=== PATIENT | female | born 1940 | race Caucasian/White ===

== ENCOUNTER → 2018-02-06 10:47 | Outpatient (CLI) | payer MEDICARE, SELFPAY ==
[2018-02-06 13:12] LABS: AST(SGOT) 14 U/L (15-37); Alanine Aminotransfer ALT/SGPT 21 U/L (13-56); Anion Gap 9 (5-15); BUN 17 mg/dL (7-18); BUN/Creat Ratio 15.6 RATIO (10-20); Calcium,Total 9.4 mg/dL (8.5-10.1); Chloride 104 mmol/L (98-107); Cholesterol 131 mg/dL (200); Creatinine, Serum 1.09 mg/dL (0.55-1.02); EST Glomerular Filtration Rate 52 mL/min (>60); Est Glom Filt Rate - Afr Amer 62 mL/min (>60); Glucose 83 mg/dL (74-106); High Density Lipoprotein 52 mg/dL; Potassium 4.1 mmol/L (3.5-5.1); Sodium Level 138 mmol/L (136-145); Triglycerides 158 mg/dL; Very Low Density Lipoprotein 32 mg/dL (5-40)
== END ==
PROVIDERS: Family Provider Family Medicine; PCP Family Medicine; Visit Provider Family Medicine
DX: E78.5 Hyperlipidemia, unspecified (principal); I10 Essential (primary) hypertension
CPT/HCPCS: 36415; 80048; 80061; 84450; 84460

== ENCOUNTER 2018-07-03 05:25 | Day surgery (SDC) | payer MEDICARE, SELFPAY ==
[2018-07-03] VITALS (13 sets, daily range): BP systolic 90–197; BP diastolic 58–131; PULSE 63–86; RESP 12–16; TEMP 36.1–36.6; O2SAT 94–100
--- NOTE | 2018-07-03 06:09 | PCM.HP.STD ---
Problem List (1) Screening for intestinal cancer Status: Acute History of Present Illness Date of Admission: 07/03/18 The patient is a 78 year old F who presents for a screening colonoscopy today. It is been over 30 years since she had had a previous procedure. She is symptom-free. She denies bright red blood per rectum or melena. No abdominal pain. It is of note that October 07, 2014 I performed an exploratory operation because of small bowel obstruction. She had foreign body food fecal material obstructing her. She has done well since that time. There is no family history of colon cancer. Past Medical History Medical History: Medical History (Last Updated 05/26/18 @ 14:19 by Gricelda Morejon) Screening for intestinal cancer (Acute) Z12.10 History of hysterectomy Z90.710 History of intestinal obstruction Onset Date: ~2014 Z87.19 Allergies simvastatin [From Zocor] Adverse Reaction (Mild, Verified 05/26/18 14:20) body aches Home Medications: Ambulatory Orders Medication Instructions Recorded Atorvastatin Calcium [Lipitor] 40 mg PO QHS 10/09/14 Carvedilol 6.25 mg PO BID 10/09/14 losartan 50 mg tablet 50 mg PO DAILY 05/26/18 Surgical History: Surgical History (Last Updated 05/26/18 @ 14:19 by Gricelda Morejon) History of colonoscopy Z98.890 History of resection of small bowel Z90.49 Surgical History: - - Exploratory laparotomy for small bowel obstruction 2014 Smoking Status: Never smoker Review of Systems Constitutional: Denies: Anorexia HEENT: Denies: Difficulty Swallowing Cardiovascular: Denies: Chest Pain Respiratory: Denies: Cough Gastrointestinal: Denies: Abdominal Pain Psychiatric: Denies: Anxiety Endocrine: Denies: Change in Body Habitus VTE Information - Inpt Only VTE Present on Admission: No - Physical Exam General: Alert, Oriented x3, Cooperative, No apparent distress HEENT: Atraumatic Oral: Moist Mucosa Neck: Supple Lungs: Clear to auscultation Cardiovascular: Regular rate, Regular Rhythm Abdomen: Bowel Sounds Present, Soft, Non Tender Extremities: No clubbing Skin: No rashes Musculoskeletal: No Tenderness to Palpation of Joints or Extremities Neurological: Cranial nerves II-XII grossly intact Psych/Mental Status: Normal Affect Vital Signs Temp Pulse Resp BP Pulse Ox 97.9 F 86 16 148/86 H 96 07/03/18 05:47 07/03/18 05:47 07/03/18 05:47 07/03/18 05:47 07/03/18 05:47 Oxygen Delivery Method Room Air Assessment/Plan All Active Problems (Last Updated 05/26/18 @ 14:19 by Gricelda Morejon) Screening for intestinal cancer (Acute) I am recommending a screening colonoscopy. The patient is aware of the technique, benefits, risks and alternatives. She has had an opportunity to ask and have questions answered. We will proceed at her discretion. Adeflo Mo M.D., F.A.C.S.
--- NOTE | 2018-07-03 06:57 | OP.ENDO_ITS ---
Patient Name: Mya Mendes Procedure Date: 07/03/2018 6:14 AM Date of : 1940 Age: 78 Procedure: Colonoscopy Indications: Screening for colorectal malignant neoplasm Providers: Adelfo Mo MD Referring MD: Adelfo Mo MD Medicines: Midazolam 3 mg IV, Meperidine 75 mg IV Patient Profile: Last Colonoscopy: more than 10 years ago. Complications: No immediate complications. Procedure: Pre-Anesthesia Assessment: - Prior to the procedure, a History and Physical was performed, and patient medications and allergies were reviewed. The patient's tolerance of previous anesthesia was also reviewed. The risks and benefits of the procedure and the sedation options and risks were discussed with the patient. All questions were answered, and informed consent was obtained. Prior Anticoagulants: The patient has taken no previous anticoagulant or antiplatelet agents. ASA Grade Assessment: II - A patient with mild systemic disease. After reviewing the risks and benefits, the patient was deemed in satisfactory condition to undergo the procedure. After I obtained informed consent, the scope was passed under direct vision. Throughout the procedure, the patient's blood pressure, pulse, and oxygen saturations were monitored continuously. The Colonoscope was introduced through the anus and advanced to the cecum, identified by appendiceal orifice and ileocecal valve. The colonoscopy was performed with moderate difficulty due to a tortuous colon. The patient tolerated the procedure well. The quality of the bowel preparation was adequate to identify polyps. The ileocecal valve was photographed. Moderate Sedation: Moderate (conscious) sedation was personally administered by the endoscopist. The following parameters were monitored: oxygen saturation, heart rate, blood pressure, and response to care. Total physician intraservice time was 15 minutes. Scope In: 6:30:00 AM Scope Withdrawal Time 0 hours 9 minutes 39 seconds Scope Out: 6:51:49 AM Total Procedure Duration Time 0 hours 21 minutes 49 seconds Findings: The digital rectal exam findings include internal hemorrhoids that prolapse with straining, but require manual replacement into the anal canal (Grade III). Pertinent negatives include normal sphincter tone. Multiple diverticula were found in the entire colon. The exam was otherwise without abnormality. Impression: - Internal hemorrhoids that prolapse with straining, but require manual replacement into the anal canal (Grade III) found on digital rectal exam. - Diverticulosis in the entire examined colon. - The examination was otherwise normal. - No specimens collected. Recommendation: - Discharge patient to home. - Resume previous diet. - Continue present medications. - Repeat colonoscopy in 10 years for screening purposes. Procedure Code(s): --- Professional --- 53446, Colonoscopy, flexible; diagnostic, including collection of specimen(s) by brushing or washing, when performed (separate procedure) 55441, 59, Moderate sedation services provided by the same physician or other qualified health care center manager performing the diagnostic or therapeutic service that the sedation supports, requiring the presence of an independent trained observer to assist in the monitoring of the patient's level of consciousness and physiological status; initial 15 minutes of intraservice time, patient age 5 years or older Diagnosis Code(s): --- Professional --- Z12.11, Encounter for screening for malignant neoplasm of colon K64.2, Third degree hemorrhoids K57.30, Diverticulosis of large intestine without perforation or abscess without bleeding CPT copyright 2017 [employer]. All rights reserved. The codes documented in this report are preliminary and upon senior editor review may be revised to meet current compliance requirements. Adelfo Mo MD 07/03/2018 6:57:01 AM This report has been signed electronically. Number of Addenda: 0 Note Initiated On: 07/03/2018 6:14 AM
== END 2018-07-03 08:16 | disposition home or self-care (01) ==
LOC: EN 05:26 → AC 05:27
PROVIDERS: Family Provider Family Medicine; PCP Family Medicine; Referring Provider Surgery; Visit Provider Surgery
PROC: 0DJD8ZZ Inspection of Lower Intestinal Tract, Via Natural or Artificial Opening Endoscopic (ICD-10-PCS; CPT 45378; principal; 2018-07-03 06:25)
DX: Z12.11 Encounter for screening for malignant neoplasm of colon (principal); K64.2 Third degree hemorrhoids; K57.30 Diverticulosis of large intestine without perforation or abscess without bleeding; Z87.19 Personal history of other diseases of the digestive system; Z79.899 Other long term (current) drug therapy
CPT/HCPCS: G0121; 99152; 99153; J7120

== ENCOUNTER → 2019-03-03 | Outpatient (CLI) | payer MEDICARE, SELFPAY ==
[2018-05-26 14:19] VITALS: BMI 24.8
[2019-03-03 17:55] LABS: AST(SGOT) 21 U/L (15-37); Alanine Aminotransfer ALT/SGPT 26 U/L (13-56); Anion Gap 6 (5-15); BUN 16 mg/dL (7-18); BUN/Creat Ratio 15.1 RATIO (10-20); Calcium,Total 9.5 mg/dL (8.5-10.1); Chloride 105 mmol/L (98-107); Cholesterol 130 mg/dL (200); Creatinine, Serum 1.06 mg/dL (0.55-1.02); EST Glomerular Filtration Rate 53 mL/min (>60); Est Glom Filt Rate - Afr Amer 64 mL/min (>60); Glucose 91 mg/dL (74-106); High Density Lipoprotein 56 mg/dL; Potassium 4.5 mmol/L (3.5-5.1); Sodium Level 139 mmol/L (136-145); Triglycerides 105 mg/dL; Very Low Density Lipoprotein 21 mg/dL (5-40)
== END | disposition home or self-care (01) ==
PROVIDERS: Family Provider Family Medicine; PCP Family Medicine; Referring Provider Family Medicine; Visit Provider Family Medicine
DX: E78.00 Pure hypercholesterolemia, unspecified (principal); I10 Essential (primary) hypertension
CPT/HCPCS: 36415; 80048; 80061; 84450; 84460

== ENCOUNTER → 2019-03-25 | Outpatient (CLI) | payer MEDICARE, SELFPAY ==
[2018-05-26 14:19] VITALS: BMI 24.8
--- NOTE | 2019-03-25 10:06 | BI_ITS ---
MAMMOGRAPHY - BILATERAL SCREENING REASON FOR EXAM: Female, 79 years old. Routine annual screening examination. PERTINENT HISTORY: Aunt with breast cancer. TECHNIQUE: Digital bilateral breast nadja (3D mammographic acquisition) in the CC and MLO projections. 2-D mediolateral oblique (MLO) and craniocaudad (CC) views of both breasts were obtained. CAD: Full Field Digital Mammography with Computer Added Detection was performed. COMPARISON: Comparison is made with prior study dated August 19, 2017 and July 09, 2016. FINDINGS: Breast Composition: There are scattered areas of fibroglandular density. There are no dominant masses or suspicious calcifications. Stable small bilateral axillary lymph nodes. No other significant abnormalities are identified. There has been no significant change since the prior study. BI/SCREEN MAMM (CAD) W/NADJA BILAT IMPRESSION: Stable bilateral screening mammogram. Yearly follow-up mammogram recommended. (A) ASSESSMENT CATEGORY: BIRADS Category 2: Benign. A letter regarding these results will be sent to the patient by the facility within 30 days. Approximately 10% of breast cancers are not detected by mammography. A normal mammogram should not delay biopsy of a clinically suspicious abnormality. [id number] Electronically Signed: Lizandro Almanzar, at 11:24 EDT , Service support ,
== END | disposition home or self-care (01) ==
PROVIDERS: Family Provider Family Medicine; PCP Family Medicine; Referring Provider Family Medicine; Visit Provider Family Medicine
DX: Z00.00 Encounter for general adult medical examination without abnormal findings (principal); Z12.31 Encounter for screening mammogram for malignant neoplasm of breast
CPT/HCPCS: 77063; 77067

== ENCOUNTER 2020-01-30 12:03 | Emergency (ER) | payer OTHER, SELFPAY ==
[2020-01-30 12:04] VITALS: BP 228/117; PULSE 86; RESP 18; TEMP 36.8; O2SAT 97; BMI 23.8
--- NOTE | 2020-01-30 12:22 | RAD_ITS ---
STUDY: X-RAY CHEST REASON FOR EXAM: Female, 79 years old. Hypertension TECHNIQUE: Frontal and lateral views of the chest COMPARISON: Abdominal x-ray dated 01/31/2017 FINDINGS: There is a hiatal hernia noted. The lungs are clear. There are no pleural effusions. There is no pneumothorax. The heart is normal in size. The visualized osseous structures are within normal limits. RAD/Chest PA and Lateral IMPRESSION: No acute thoracic pathology. Stable hiatal hernia. Electronically Signed: Carrillo Kay, at 14:05 EDT Tel , Service support ,
--- NOTE | 2020-01-30 12:22 | EKG12_ITS ---
Test Reason : Blood Pressure : / mmHG Vent. Rate : 074 BPM Atrial Rate : 074 BPM P-R Int : 150 ms QRS Dur : 082 ms QT Int : 404 ms P-R-T Axes : 070 040 078 degrees QTc Int : 448 ms Normal sinus rhythm Nonspecific ST and T wave abnormality Abnormal ECG Confirmed by RO ENNIS, SAUNDRA ([id number]), image editor VICKI GONZALEZ ([id number]) on 02/01/2020 3:18:10 PM Referred By: JONATHAN Confirmed By:SAUNDRA STARR MD
[2020-01-30 12:24] VITALS: BP 217/101; PULSE 80; RESP 15; O2SAT 96
--- NOTE | 2020-01-30 12:28 | ED.VIS.GEN ---
History of Present Illness Chief Complaint: Hypertension Informant: Patient Narrative: Patient is an 79-year-old female with history of hypertension and hyperlipidemia presenting with concern for high blood pressure. Patient states she felt a little off yesterday even though she did all of her daily activities including taking a walk. She doctor blood pressure and the systolic blood pressure was 190. She checked her blood pressure today and it continued to be elevated so she decided to come to the emergency room to be checked out. She states she still feels a little fuzzy. Patient denies any associated chest pain, stroke symptoms, abdominal pain, diaphoresis or change with urination. She states her blood pressures normally 1 40-1 50 systolic. She takes losartan 50 mg daily for blood pressure. She states her blood pressures never been this high. She denies any other complaints at this time. Past Medical History - Allergies and Home Meds Allergies/Adverse Reactions: Allergies simvastatin [From Zocor] Adverse Reaction (Mild, Verified 01/30/20 12:06) body aches Primary Care Physician: Carol Quiroga MD [Primary Care Provider] - Past Medical History: - - Hypertension, hyperlipidemia Surgical History: - - Exploratory laparotomy for small bowel obstruction 2014 Smoking Status: Never smoker Review of Systems General: Denies: Chills, Fever, Sweats Eyes: Denies: Visual changes - bilaterally, Diplopia ENT: Denies: Rhinorrhea, Sore throat Cardiovascular: Denies: Chest pain, Palpitations Respiratory: Denies: Dyspnea, Cough, Dyspnea on exertion Gastrointestinal: Denies: Abdominal pain, Nausea, Vomiting, Diarrhea, Melena, Hematochezia Genitourinary: Denies: Dysuria, Hematuria, Frequency Musculoskeletal: Denies: Back pain, Extremity Pain Skin: Denies: Rash, Wounds Neurological: Denies: Headache, Weakness, Numbness Physical Exam Vital Signs/Narrative: Vital Signs Temp Pulse Resp BP Pulse Ox 01/30/20 12:24 80 15 217/101 H 96 01/30/20 12:04 98.2 F 86 18 228/117 H 97 Inital Vital Signs reviewed: Yes General: Well nourished, Well developed, No Acute Distress Head: Normocephalic, Atraumatic Eyes: Perrl, EOMI ENT: Moist mucous membranes, No rhinorrhea Neck: Supple, Nontender, No JVD Cardiovascular: Regular rate, Regular rhythm, No murmurs Respiratory: No distress, CTA bilaterally, Chest nontender Abdomen: Soft, Nontender, Nondistended, Normal bowel sounds Back: Nontender, Normal Inspection Extremities: Nontender, No edema Skin: Normal color, No rash Neurological: Alert, Oriented x3, Cranial nerves II-XII grossly intact, Normal Strength, Normal Sensation Psychological: Normal affect, Normal Mood Diagnostic/Tx/Re-eval Chest X-Ray - ED: 2 View, Read by ED Physician, Read by Radiologist, No Acute Disease Clinical Impression(s) from Imaging Studies Chest X-Ray 01/30/20 12:22 IMPRESSION: No acute thoracic pathology. Stable hiatal hernia. Electronically Signed: Carrillo Kay, at 14:05 EDT Tel , Service support , Laboratory Data 01/30/20 01/30/20 01/30/20 12:20 12:20 12:25 WBC 7.3 RBC 4.76 Hgb 14.4 Hct 44.2 MCV 92.9 MCH 30.3 MCHC 32.6 RDW Std Deviation 43.5 RDW Coeff of Rose Marie 12.8 Plt Count 253 MPV 10.8 Immature Gran % (Auto) 0.400 Neut % (Auto) 64.5 Lymph % (Auto) 24.4 Emanuel % (Auto) 9.1 Eos % (Auto) 1.2 Baso % (Auto) 0.4 Absolute Neuts (auto) 4.7 Absolute Lymphs (auto) 1.78 Nucleated RBC % 0 Sodium 139 Potassium 4.2 Chloride 108 H Carbon Dioxide 26.0 Anion Gap 5 BUN 16 Creatinine 0.98 Estim Creat Clear Calc 36.21 Est GFR (MDRD) Af Amer 70 Est GFR (MDRD) Non-Af 58 L BUN/Creatinine Ratio 16.3 Glucose 115 H Calcium 9.7 Urine Color Yellow Urine Clarity Clear Urine pH 7.0 Ur Specific Mcgrann 1.010 Urine Protein Negative Urine Glucose (UA) Normal Urine Ketones Negative Urine Occult Blood 10 H Urine Nitrite Negative Urine Bilirubin Negative Urine Urobilinogen Normal Ur Leukocyte Esterase 100 H Urine RBC 0 SEEN Urine WBC 0-5 SEEN Ur Squamous Epith Cells 0 SEEN Urine Bacteria 1+ Urine Mucus 0 SEEN - Rhythm Strip Rhythm Strip: Sinus Rhythm Rate: 74 Ectopy: None - EKG Initial EKG Interpretation: Sinus Rhythm, - - Sinus rhythm at a rate of 74 Normal intervals Normal axis Normal ST segments - Medical Decision Making Patient is evaluated for elevated blood pressure and feeling a little off. On arrival her blood pressure was 220 systolic. She does not have any signs or symptoms consistent with a hypertensive emergency. She is quite well-appearing. Without intervention her blood pressure goes down 164 systolic. I did check EKG, chest x-ray and basic blood work looking for signs of end organ damage. I did not find any. Patient does have a stable hiatal hernia. She is informed of this but was not aware that she had one. Discussed her complaint with her primary care doctor who recommends increasing her losartan to 100 mg a day instead of 50 mg a day. Patient is agreeable with this plan. Patient is counseled on signs and symptoms of hypotension in case the increase is too much for her. Patient's urinalysis does show 100 leukoesterase but is otherwise not consistent with UTI. Urine culture sent however patient will not be started on antibiotics at this time. In addition she does not have symptoms consistent with a UTI. Patient is counseled on signs and symptoms requiring return to the emergency room. Patient verbalizes agreement and understand this plan. Patient discharged home in stable and improved condition. ED Disposition - Plan for ED Patient: Disposition: Home or Assisted Living Diagnosis: Hypertension Instructions: ED Hypertension Established Referrals: Carol Quiroga MD [Primary Care Provider] - Additional Instructions: Increased your losartan to 2 pills a day, 100 mg in the morning instead of 50 mg in the morning. Please follow-up with your primary care doctor on Friday for blood pressure check. Call the office on Friday to make this appointment. Return to the emergency room with any worsening symptoms.
[2020-01-30 12:40] LABS: Mucous, Urine 0 SEEN /hpf (<or=2+); Red Blood Cells-Urine 0 SEEN /hpf (0-5); Squamous Epithelial Cells - UA 0 SEEN /hpf (5-10)
[2020-01-30 12:47] LABS: Absolute Lymphocyte Count 1.78 X10^3/uL (0.83-4.51); Absolute Neutrophil Count 4.7 X10^3/uL (2.0-7.7); Basophil# 0.03 X10^3/uL; Basophil% 0.4 % (0-1); Eosinophil# 0.09 X10^3/uL; Eosinophils% 1.2 % (0-5); Hematocrit 44.2 % (37-47); Hemoglobin 14.4 g/dL (12.0-15.0); Lymphocyte # 1.78 X10^3/ul (4.0); Lymphocyte % 24.4 % (19-41); Mean Corp Hgb Conc 32.6 g/dL (32-36); Mean Corpuscular Hgb 30.3 pg (27.0-32.0); Mean Corpuscular Volume 92.9 fL (81-99); Mean Platelet Vol. 10.8 fl (6.2-12.0); Monocyte# 0.66 X10^3/uL; Monocyte% 9.1 % (0-10); NRBC Flagged by Analyzer 0 % (0-5); Neutrophil % 64.5 % (47-70); Platelet Count 253 K/mm3 (150-450); RBC Distribution Width CV 12.8 % (11.6-14.6); RBC Distribution Width SD 43.5 fl (35.1-43.9); Red Blood Count 4.76 M/mm3 (4.2-5.4); White Blood Count 7.3 K/mm3 (4.4-11.0)
[2020-01-30 12:48] LABS: Color, Urine Yellow (Yellow); Glucose, Dipstick Normal (Normal); Ketone-Dipstick Negative (Negative); Leukocyte Esterase-Dipstick 100 /ul (Negative); Nitrite-Dipstick Negative (Negative); Occult Blood-Urine 10 /ul (Negative); Protein-Dipstick Negative (Negative); Urine Bilirubin Dipstick Negative (Negative); Urine Clarity Clear (Clear); Urine Urobilinogen Normal (Normal)
[2020-01-30 12:52] VITALS: BP 184/95; PULSE 74; RESP 16; O2SAT 95
[2020-01-30 12:57] LABS: Anion Gap 5 (5-15); BUN 16 mg/dL (7-18); BUN/Creat Ratio 16.3 RATIO (10-20); Calcium,Total 9.7 mg/dL (8.5-10.1); Chloride 108 mmol/L (98-107); Creatinine, Serum 0.98 mg/dL (0.55-1.02); EST Glomerular Filtration Rate 58 mL/min (>60); Est Glom Filt Rate - Afr Amer 70 mL/min (>60); Estimated Creatinine Clearance 36.21 ml/min; Glucose 115 mg/dL (74-106); Potassium 4.2 mmol/L (3.5-5.1); Sodium Level 139 mmol/L (136-145)
[2020-01-30 12:59] LABS: Bacteria 1+ /hpf (None Seen); White Blood Cells 0-5 SEEN /hpf (0-5)
[2020-01-30 13:24] VITALS: BP 176/86; PULSE 68; RESP 16; O2SAT 95
[2020-01-30 14:12] VITALS: BP 183/83; PULSE 71; RESP 16; O2SAT 96
== END 2020-01-30 14:20 | disposition home or self-care (01) ==
PROVIDERS: Emergency Provider Emergency Medicine; PCP Family Medicine
DX: I10 Essential (primary) hypertension (principal); K44.9 Diaphragmatic hernia without obstruction or gangrene; E78.5 Hyperlipidemia, unspecified; Z79.899 Other long term (current) drug therapy
CPT/HCPCS: 71046; 80048; 81001; 85025; 87086; 87088; 87186; 93005; 99285; A4216

== ENCOUNTER → 2020-03-06 10:51 | Outpatient (CLI) | payer OTHER, SELFPAY ==
[2020-03-01 11:02] VITALS: BMI 23.3
[2020-03-06 12:14] LABS: AST(SGOT) 17 U/L (15-37); Alanine Aminotransfer ALT/SGPT 32 U/L (13-56); Cholesterol 130 mg/dL (200); High Density Lipoprotein 51 mg/dL; Triglycerides 212 mg/dL; Very Low Density Lipoprotein 42 mg/dL (5-40)
== END ==
PROVIDERS: PCP Family Medicine; Visit Provider Family Medicine
DX: E78.5 Hyperlipidemia, unspecified (principal)
CPT/HCPCS: 36415; 80061; 84450; 84460

== ENCOUNTER → 2020-03-17 12:54 | Outpatient (CLI) | payer MEDICARE, SELFPAY ==
[2020-03-01 11:02] VITALS: BMI 23.3
--- NOTE | 2020-03-17 12:57 | ECHOD_ITS ---
Reason For Study: HTN Procedure This was a 2D Doppler, Color Flow transthoracic echocardiogram. Exam performed in department. Left Ventricle Normal LV size. Left ventricular systolic function is normal. The estimated ejection fraction is 60 %. Stage 1 diastolic dysfunction. No regional wall motion abnormalities noted. Right Ventricle Normal RV size. Normal systolic function. Atria Normal left atrium. Normal right atrium. Mitral Valve Normal mitral valve. Tricuspid Valve Normal tricuspid valve. Aortic Valve Normal aortic valve. Trisinus/trileaflet aortic valve. Mild (1+) eccentric aortic valve insufficiency. Pulmonic Valve Normal pulmonic valve. Great Vessels Normal aortic root. The pulmonary artery is normal size. Inferior vena cava collapse with respiration. Pericardium/Pleural No pericardial effusion. MMode/2D Measurements & Calculations LVIDd: 4.1 cm IVSd: 0.69 cm Ao root diam: 3.0 cm LVIDs: 2.8 cm LVPWd: 0.68 cm RVDd: 2.0 cm FS: 33.2 % LAV(MOD-bp): 50.1 ml LA A4 area: 17.3 cm2 LA dimension(2D): 3.5 cm LAV(MOD-bp) Indexed: 31.5 ml/m2 LAV(MOD-sp2): 46.3 ml LAV(MOD-sp4): 48.2 ml RA A4 area: 13.7 cm2 Time Measurements MV dec time: 0.24 sec Doppler Measurements & Calculations MV E max samuel: 92.3 cm/sec Lat Peak E' Samuel: 3.4 cm/sec Med Peak E' Samuel: 4.8 cm/sec MV A max samuel: 115.2 cm/sec E/E' lat: 27.5 E/E' med: 19.1 MV E/A: 0.80 Ao V2 max: 103.2 cm/sec AI max samuel: 483.5 cm/sec LV V1 max: 86.4 cm/sec Ao max P.3 mmHg AI max P.6 mmHg LV V1 max P.0 mmHg Ao V2 mean: 68.6 cm/sec AI dec slope: 303.1 cm/sec2 LV V1 mean P.6 mmHg Ao mean P.1 mmHg AI P1/2t: 467.2 msec LV V1 mean: 60.6 cm/sec Ao V2 VTI: 19.5 cm LV V1 VTI: 16.1 cm PA V2 max: 83.1 cm/sec TR max samuel: 239.2 cm/sec TR max P.9 mmHg Interpretation Summary Normal LV size. Left ventricular systolic function is normal. The estimated ejection fraction is 60 %. Mild (1+) eccentric aortic valve insufficiency. Stage 1 diastolic dysfunction. Ordering Physician: Navdeep Clarke Referring Physician: Carol Quiroga Performed By: Iraida Garber, DHARA, RVT
== END ==
PROVIDERS: PCP Family Medicine; Referring Provider Internal Medicine Cardiovascular Disease; Visit Provider Internal Medicine Cardiovascular Disease
DX: I10 Essential (primary) hypertension (principal); I34.0 Nonrheumatic mitral (valve) insufficiency
CPT/HCPCS: 93306

== ENCOUNTER → 2021-03-14 11:26 | Outpatient (CLI) | payer MEDICARE, SELFPAY ==
[2020-03-01 11:02] VITALS: BMI 23.3
[2021-03-14 18:04] LABS: AST(SGOT) 19 U/L (15-37); Alanine Aminotransfer ALT/SGPT 28 U/L (13-56); Anion Gap 4 (5-15); BUN 14 mg/dL (7-18); BUN/Creat Ratio 12.8 RATIO (10-20); Calcium,Total 9.5 mg/dL (8.5-10.1); Chloride 106 mmol/L (98-107); Cholesterol 134 mg/dL (200); Creatinine, Serum 1.09 mg/dL (0.55-1.02); EST Glomerular Filtration Rate 51 mL/min (>60); Est Glom Filt Rate - Afr Amer 62 mL/min (>60); Glucose 93 mg/dL (74-106); High Density Lipoprotein 57 mg/dL; Potassium 4.3 mmol/L (3.5-5.1); Sodium Level 138 mmol/L (136-145); Triglycerides 178 mg/dL; Very Low Density Lipoprotein 36 mg/dL (5-40)
== END ==
PROVIDERS: PCP Family Medicine; Visit Provider Family Medicine
DX: E78.00 Pure hypercholesterolemia, unspecified (principal); I10 Essential (primary) hypertension
CPT/HCPCS: 36415; 80048; 80061; 84450; 84460

== ENCOUNTER → 2021-04-13 15:19 | Outpatient (CLI) | payer MEDICARE, SELFPAY ==
[2020-03-01 11:02] VITALS: BMI 23.3
--- NOTE | 2021-04-13 15:20 | BI_ITS ---
MAMMOGRAPHY - BILATERAL SCREENING REASON FOR EXAM: Female, 81 years old. Routine annual screening examination. PERTINENT HISTORY: Aunts with breast cancer. TECHNIQUE: Digital bilateral breast nadja (3D mammographic acquisition) in the CC and MLO projections. 2-D mediolateral oblique (MLO) and craniocaudad (CC) views of both breasts were obtained. CAD: Full Field Digital Mammography with Computer Added Detection was performed. COMPARISON: Comparison is made with prior examination dated 03/25/2019 and 08/19/2017. FINDINGS: Breast Composition: There are scattered areas of fibroglandular density. There are no dominant masses or suspicious calcifications. Stable small benign-appearing bilateral axillary lymph nodes. No other significant abnormalities are identified. There has been no significant change since the prior study. BI/SCRN MAMM (CAD)W/NADJA BILAT IMPRESSION: Stable bilateral screening mammogram. Yearly follow-up mammogram recommended. (A) ASSESSMENT CATEGORY: BIRADS Category 2: Benign. A letter regarding these results will be sent to the patient by the facility within 30 days. Approximately 10% of breast cancers are not detected by mammography. A normal mammogram should not delay biopsy of a clinically suspicious abnormality. [id number] Electronically Signed: Lizandro Almanzar MD at 9:55 EDT , Service support ,
== END ==
PROVIDERS: PCP Family Medicine; Referring Provider Family Medicine; Visit Provider Family Medicine
DX: Z12.31 Encounter for screening mammogram for malignant neoplasm of breast (principal)
CPT/HCPCS: 77063; 77067

== ENCOUNTER 2022-04-05 11:27 | Outpatient (CLI) | payer MEDICARE, SELFPAY ==
--- NOTE | 2022-04-05 11:30 | RAD_ITS ---
HISTORY: ABDOMINAL PAIN. TECHNIQUE: XR Abdomen W/ Decub and/or Erect Views. COMPARISON: 01/31/2017. FINDINGS: BOWEL GAS PATTERN: Large retrocardiac hiatal hernia. Borderline dilated small bowel loops in the left upper quadrant. Mild gaseous distention of small bowel and colon with scattered stool in the colon. FREE AIR: None seen on upright view. CALCIFICATIONS: Pelvic phleboliths observed. BONES AND SOFT TISSUES: Degenerative changes of the osseous structures. Mild levocurvature of the lumbar spine. RAD/Abd Inc Decub and/or Erect IMPRESSION: Diffuse gaseous distention of bowel with borderline dilatation of small bowel, suggesting ileus. Large retrocardiac hernia. Electronically Signed: Elissa Marshall MD at 11:30 EDT ,
== END 2022-04-05 23:59 | disposition home or self-care (01) ==
LOC: MTRAD 11:28
PROVIDERS: PCP Family Medicine; Referring Provider Family Medicine; Visit Provider Family Medicine
DX: R10.9 Unspecified abdominal pain (principal)
CPT/HCPCS: 74019

== ENCOUNTER → 2022-04-30 | Outpatient (CLI) | payer MEDICARE, SELFPAY ==
--- NOTE | 2022-04-30 13:34 | BI_ITS ---
MAMMOGRAPHY - BILATERAL SCREENING REASON FOR EXAM: Female, 82 years old. Routine annual screening examination. PERTINENT HISTORY: Aunt with breast cancer. TECHNIQUE: Digital bilateral breast nadja (3D mammographic acquisition) in the CC and MLO projections. 2-D mediolateral oblique (MLO) and craniocaudad (CC) views of both breasts were obtained. CAD: Full Field Digital Mammography with Computer Added Detection was performed. COMPARISON: Comparison is made with prior study dated 04/13/2021 and 03/25/2019. FINDINGS: Breast Composition: There are scattered areas of fibroglandular density. There are no dominant masses or suspicious calcifications. Stable small benign appearing bilateral axillary lymph nodes. No other significant abnormalities are identified. There has been no significant change since the prior study. BI/SCRN MAMM (CAD)W/NADJA BILAT IMPRESSION: Stable bilateral screening mammogram. Yearly follow-up mammogram recommended. (A) ASSESSMENT CATEGORY: BIRADS Category 2: Benign. A letter regarding these results will be sent to the patient by the facility within 30 days. Approximately 10% of breast cancers are not detected by mammography. A normal mammogram should not delay biopsy of a clinically suspicious abnormality. [id number] Electronically Signed: Lizandro Almanzar MD at 14:46 EDT ,
== END | disposition home or self-care (01) ==
LOC: OPBI 13:33
PROVIDERS: PCP Family Medicine; Visit Provider Family Medicine
DX: Z12.31 Encounter for screening mammogram for malignant neoplasm of breast (principal)
CPT/HCPCS: 77063; 77067

== ENCOUNTER → 2022-12-24 | Outpatient (CLI) | payer MEDICARE, SELFPAY ==
[2022-12-24 15:59] LABS: AST(SGOT) 24 U/L (15-37); Alanine Aminotransfer ALT/SGPT 32 U/L (13-56); Anion Gap 6 (5-15); BUN 19 mg/dL (7-18); BUN/Creat Ratio 17.6 RATIO (10-20); Calcium,Total 9.8 mg/dL (8.5-10.1); Chloride 107 mmol/L (98-107); Cholesterol 120 mg/dL (200); Creatinine, Serum 1.08 mg/dL (0.55-1.02); EST Glomerular Filtration Rate 51 mL/min (>60); Est Glom Filt Rate - Afr Amer 62 mL/min (>60); Glucose 107 mg/dL (74-106); High Density Lipoprotein 53 mg/dL; Potassium 4.3 mmol/L (3.5-5.1); Sodium Level 136 mmol/L (136-145); Triglycerides 151 mg/dL; Very Low Density Lipoprotein 30 mg/dL (5-40)
== END | disposition home or self-care (01) ==
LOC: MFPLAB 11:34
PROVIDERS: PCP Family Medicine; Referring Provider Family Medicine; Visit Provider Family Medicine
DX: E78.00 Pure hypercholesterolemia, unspecified (principal); I10 Essential (primary) hypertension
CPT/HCPCS: 36415; 80048; 80061; 84450; 84460

== ENCOUNTER → 2023-12-16 | Outpatient (CLI) | payer MEDICARE, SELFPAY ==
[2023-12-16 16:14] LABS: Protein, Urine (Random) 8.8 mg/dL (<11.9); Protein:Creat Ratio 110 mg/g CRE (0-200)
[2023-12-16 16:18] LABS: AST(SGOT) 19 U/L (15-37); Alanine Aminotransfer ALT/SGPT 31 U/L (13-56); Anion Gap 4 (5-15); BUN 16 mg/dL (7-18); BUN/Creat Ratio 16.2 RATIO (10-20); Calcium,Total 9.5 mg/dL (8.5-10.1); Chloride 110 mmol/L (98-107); Cholesterol 135 mg/dL (200); Creatinine, Serum 0.99 mg/dL (0.55-1.02); EST Glomerular Filtration Rate 57 mL/min (>60); Est Glom Filt Rate - Afr Amer 69 mL/min (>60); Glucose 120 mg/dL (74-106); High Density Lipoprotein 57 mg/dL; Potassium 4.4 mmol/L (3.5-5.1); Sodium Level 140 mmol/L (136-145); Triglycerides 162 mg/dL; Very Low Density Lipoprotein 32 mg/dL (5-40)
== END | disposition home or self-care (01) ==
LOC: MFPLAB 13:42
PROVIDERS: PCP Family Medicine; Visit Provider Family Medicine
DX: E78.00 Pure hypercholesterolemia, unspecified (principal); I10 Essential (primary) hypertension
CPT/HCPCS: 36415; 80048; 80061; 82570; 84156; 84450; 84460

== ENCOUNTER 2024-04-28 19:35 | Inpatient (IN) | payer MEDICARE, SELFPAY ==
[2024-04-28 19:37] VITALS: BP 140/80; PULSE 89; RESP 18; TEMP 36.8; O2SAT 96; BMI 22.6
[2024-04-28 20:26] VITALS: BP 184/76
--- NOTE | 2024-04-28 20:32 | EDS_ITS ---
HPI History of Present Illness Chief Complaint: Nausea/Vomiting/Diarrhea Informant: patient Onset/Context/Timing Onset: Today Context: Gradual Onset Timing: Continuous Quality: Nauseated Location: Abdomen Worsened by: Nothing Relieved by: Nothing Narrative Narrative: Patient presents with nausea and vomiting that began today. Patient states that she has been vomiting up stomach contents. Patient states she has been unable to keep anything down today. Patient admits to some urinary frequency. Patient denies any dysuria or hematuria. Patient denies any diarrhea, melena, or hematochezia. Patient denies any abdominal pain. Patient admits to a mild headache. Patient also admits to some recent rhinorrhea. Patient denies any fevers or chills. [facility] Medical History (Updated 04/29/24 @ 00:[address] John Manzano DO) TIA (transient ischemic attack) (05/2013) Essential (primary) hypertension Hyperlipidemia Screening for intestinal cancer History of intestinal obstruction (~2014) Home Medications ?Medication ?Instructions ?Recorded ?Last Taken ?Type latanoprost 0.005 % eye drops 1 drp EACH EYE DAILY 01/30/20 Unknown History atorvastatin 20 mg tablet 20 mg PO QHS 02/29/20 Unknown History losartan 50 mg tablet 100 mg PO DAILY 02/29/20 Unknown History diphenhydramine 25 1 tab PO QHS PRN sleep 03/01/20 Unknown History mg-acetaminophen 500 mg tablet (Tylenol PM Extra Strength) carvedilol 6.25 mg tablet 6.25 mg PO BID 04/28/24 Unknown History dorzolamide 22.3 mg-timolol 6.8 1 drp ophthalmic (eye) Q12H 04/28/24 Unknown History mg/mL eye drops Allergy/AdvReac Type Severity Reaction Status Date / Time simvastatin (From Zocor) AdvReac Mild body aches Verified 04/28/24 19:50 Family History Father CVA (cerebral vascular accident) Father CVA (cerebral vascular accident) Aunt Breast cancer Surgical History History of resection of small bowel History of hysterectomy History of colonoscopy Social History Smoking Status: Never smoker ROS ROS ED Constitutional Constitutional ED: Denies chills or fever(s) Eyes Eyes: Denies blurry vision or change in vision ENT ENT ED: Reports rhinorrhea; Denies sore throat Cardiovascular Cardiovascular: Denies chest pain or palpitations Respiratory/Chest Respiratory/Chest: Denies cough or dyspnea Gastrointestinal Gastrointestinal: Reports nausea and vomiting Genitourinary Genitourinary ED: Denies dysuria or hematuria Musculoskeletal Musculoskeletal: Denies back pain or neck pain Integumentary Denies abscess or rash Neurologic Neurologic: Reports headache(s); Denies weakness Allergic/Immunologic Allergic/Immunologic ED: Denies mouth swelling or urticaria EXAM Physical Exam Const Vital Signs: 04/28/24 19:37 04/28/24 20:26 04/28/24 22:00 Temperature 98.2 F Temperature Source Temporal Pulse Rate 89 81 Respiratory Rate 18 16 Blood Pressure 140/80 H 184/76 H 175/88 H Blood Pressure Mean 100 112 117 Pulse Ox 96 97 Oxygen Delivery Method Room Air Room Air 04/29/24 00:00 04/29/24 00:20 Temperature 97.8 F Temperature Source Pulse Rate 68 68 Respiratory Rate 17 17 Blood Pressure 169/83 H Blood Pressure Mean 111 Pulse Ox 97 98 Oxygen Delivery Method Room Air Positive well nourished and well developed General Appearance ED: well developed and NAD HEENT Reports moist mucous membranes Neck supple and no JVD Resp normal respiratory effort and clear to auscultation bilaterally Cardio regular rate and regular rhythm GI non-tender and non-distended Palpation: soft Neuro oriented x3, CN's II-XII intact bilaterally and no sensory deficits noted Sensorium / Orientation: alert Motor Exam: strength 5/5 throughout Psych mental status grossly normal MDM MDM MDM Narrative Medical decision making narrative: Differential diagnosis includes gastroenteritis, urinary tract infection, dehydration, electrolyte abnormality, viral illness, pancreatitis, gastritis, bowel obstruction, and perforation. CBC will be obtained to assess for leukocytosis and anemia. Comprehensive metabolic profile will be obtained to assess for electrolyte abnormality and renal function. Lipase will be obtained to assess for pancreatitis. Urinalysis will be obtained to assess for urinary tract infection and hematuria. CT scan of the abdomen pelvis will be obtained to assess for bowel obstruction and perforation. COVID-19, influenza, and RSV PCR will be obtained to assess for viral illness. Lab Data Attestation: I reviewed the patient's lab results. Lab results narrative: CBC was reviewed and was within normal limits. Comprehensive metabolic profile was reviewed. Sodium was slightly low at 131. Total bilirubin was mildly elevated at 1.4. The remainder was within normal limits. Urinalysis was reviewed. There is no evidence of urinary tract infection or hematuria. Labs: Laboratory Results - last 24 hr 04/28/24 04/28/24 19:45 21:43 WBC 8.9 RBC 4.84 Hgb 14.4 Hct 43.0 MCV 88.8 MCH 29.8 MCHC 33.5 RDW Std Deviation 40.6 RDW Coeff of [place] 12.6 Plt Count 261 MPV 11.5 Immature Gran % (Auto) 0.500 Neut % (Auto) 81.7 H Lymph % (Auto) 13.4 L [place] % (Auto) 4.0 Eos % (Auto) 0.2 Baso % (Auto) 0.2 Absolute Neuts (auto) 7.2 Absolute Lymphs (auto) 1.19 Nucleated RBC % 0 Sodium 131 L Potassium 3.8 Chloride 98 Carbon Dioxide 23.0 Anion Gap 10 BUN 10 Creatinine 0.88 Estim Creat Clear Calc 36.97 Est GFR (MDRD) Af Amer 78 Est GFR (MDRD) Non-Af 65 BUN/Creatinine Ratio 11.3 Glucose 158 H Calcium 9.5 Total Bilirubin 1.40 H AST 19 ALT 27 Alkaline Phosphatase 62 Total Protein 7.9 Albumin 4.2 Globulin 3.7 Albumin/Globulin Ratio 1.1 Urine Color Straw Urine Clarity Clear Urine pH 8.0 Ur Specific [place] 1.015 Urine Protein 30 H Urine Glucose (UA) 100 H Urine Ketones 5 H Urine Occult Blood 25 H Urine Nitrite Negative Urine Bilirubin Negative Urine Urobilinogen Normal Ur Leukocyte Esterase Negative Urine RBC 0 SEEN Urine WBC 0 SEEN Ur Squamous Epith Cells 0 SEEN Urine Bacteria 1+ Urine Mucus 0 SEEN Radiography Diagnostic Testing: Clinical Impression(s) from Imaging Studies Abdomen/Pelvis CT 04/28/24 21:02 IMPRESSION: Biliary dilatation with suspected choledocholithiasis, subtle noncalcified stone in the distal CBD. Distended gallbladder with findings of possible cholecystitis. Ultrasound correlation may be helpful. Colonic diverticulosis without evidence of acute diverticulitis. Large hiatal hernia. Electronically Signed: Caryn Gottlieb MD at 22:38 EDT , Gallbladder Ultrasound 04/28/24 22:51 IMPRESSION: Dilated common bile duct. Distal CBD not visualized. Borderline thickened gallbladder wall with no gallstones identified. Minimal pericholecystic fluid. Dilated pancreatic duct. MRI/MRCP may be helpful for further evaluation. Electronically Signed: Caryn Gottlieb MD at 0:21 EDT , CT scan of the abdomen pelvis was obtained. There is biliary dilatation with suspected choledocholithiasis. There is a subtle noncalcified stone in the distal common bile duct. There is a distended gallbladder with possible cholecystitis. There is diverticulosis but no evidence of diverticulitis. This was interpreted by the radiologist and was also independently reviewed by myself. Management Discussion w/another healthcare provider: Hospitalist (Dr. Parr) and Property Claims Adjuster (Dr. Kelly from gastroenterology) Additional Tests and Interventions Additional Tests or Interventions: Gallbladder ultrasound was obtained per radiologist recommendation. Treatment and Re-Evaluation :: Patient was given IV fluids and Zofran. Patient was still having nausea and a headache. Patient was given Reglan and morphine. Case was discussed with Dr. Kelly from gastroenterology. He will be able to see the patient in consultation and likely do an ERCP tomorrow. Patient was advised of her findings. Patient is agreeable to be admitted to the hospital. Case was discussed with the hospitalist. She will admit the patient to her service. Patient understood and was agreeable with the plan. All questions were answered. Discharge Plan Dx/Rx/DC Orders Clinical Impression: Choledocholithiasis, Nausea and vomiting, Essential (primary) hypertension Disposition Disposition: Acute Care Hospital [facility]
--- NOTE | 2024-04-28 21:02 | CT_ITS ---
EXAM: CT Abdomen And Pelvis W/ Contrast Injection HISTORY: Abdominal pain TECHNIQUE: Routine protocol CT abdomen pelvis. IV Contrast: IV 100mL Isovue-370 . Oral Contrast: without. Sagittal and coronal images were reconstructed. RADIATION DOSAGE (If Supplied By Facility): CTDIvol = ( 16.31 ) mGy, DLP = ( 501.17 ) mGycm Individualized dose optimization techniques were used for this CT. COMPARISON: CT abdomen and pelvis 10/09/2014. LIMITATIONS: None. FINDINGS: LOWER CHEST: Reticular opacities in the left lung base likely scarring and/or subsegmental atelectasis. Coronary artery calcifications are noted. LIVER: Small cyst in the right lobe. A few other tiny low-attenuation structures to small to characterize. GALLBLADDER/BILE DUCTS: Gallbladder distended, with prominent wall. No calcified gallstones identified in the gallbladder. The common bile duct is markedly dilated, 15 mm. There is subtle slightly increased attenuation rounded focus in the distal CBD suspicious for noncalcified stone. Intrahepatic ducts are mildly dilated PANCREAS: Unremarkable. SPLEEN: Unremarkable. ADRENAL GLANDS: Unremarkable. KIDNEYS / URETERS: Unremarkable. BOWEL / MESENTERY: Large hiatal hernia with approximately two thirds of the proximal stomach within the left lower chest, which is moderately distended with air and fluid. Size is increased compared to the prior CT. Diverticula throughout the colon. No bowel obstruction. APPENDIX: Not identified. PERITONEUM: No free air. No free fluid. VESSELS: Abdominal aorta is normal caliber. RETROPERITONEUM: Unremarkable. REPRODUCTIVE ORGANS: Uterus is not identified. BLADDER: Unremarkable. ABDOMINAL WALL: Unremarkable. BONES: No acute abnormality. Degenerative changes lumbar spine with minimal anterolisthesis at L4-5. OTHER: None. CT/Abdomen/Pelvis W IV Cont ONLY IMPRESSION: Biliary dilatation with suspected choledocholithiasis, subtle noncalcified stone in the distal CBD. Distended gallbladder with findings of possible cholecystitis. Ultrasound correlation may be helpful. Colonic diverticulosis without evidence of acute diverticulitis. Large hiatal hernia. Electronically Signed: Caryn Gottlieb MD at 22:38 EDT ,
[2024-04-28] MEDS: Ondansetron 4 MG/2 ML Vial IV (21:12)
[2024-04-28] MEDS: 0.9% Normal Saline (500mL Bag) 500 ML 1000 ML IV (21:14)
[2024-04-28 21:26] LABS: Absolute Lymphocyte Count 1.19 X10^3/uL (0.83-4.51); Absolute Neutrophil Count 7.2 X10^3/uL (2.0-7.7); Basophil# 0.02 X10^3/uL; Basophil% 0.2 % (0-1); Eosinophil# 0.02 X10^3/uL; Eosinophils% 0.2 % (0-5); Hemoglobin 14.4 g/dL (12.0-15.0); Lymphocyte # 1.19 X10^3/ul (0.83-4.51); Lymphocyte % 13.4 % (19-41); Mean Corp Hgb Conc 33.5 g/dL (32-36); Mean Corpuscular Hgb 29.8 pg (27.0-32.0); Mean Corpuscular Volume 88.8 fL (81-99); Mean Platelet Vol. 11.5 fl (6.2-12.0); Monocyte# 0.35 X10^3/uL; NRBC Flagged by Analyzer 0 % (0-5); Neutrophil # 7.24 X10^3/uL (2.7-7.7); Neutrophil % 81.7 % (47-70); Platelet Count 261 K/mm3 (150-450); RBC Distribution Width CV 12.6 % (11.6-14.6); RBC Distribution Width SD 40.6 fl (35.1-43.9); Red Blood Count 4.84 M/mm3 (4.2-5.4); White Blood Count 8.9 K/mm3 (4.4-11.0)
[2024-04-28 21:46] LABS: ALB/GLOB Ratio 1.1 RATIO (0.9-2.4); AST(SGOT) 19 U/L (15-37); Alanine Aminotransfer ALT/SGPT 27 U/L (13-56); Albumin, Serum 4.2 g/dL (3.2-5.0); Alkaline Phosphatase 62 U/L (45-117); Anion Gap 10 (5-15); BUN 10 mg/dL (7-18); BUN/Creat Ratio 11.3 RATIO (10-20); Calcium,Total 9.5 mg/dL (8.5-10.1); Chloride 98 mmol/L (98-107); Creatinine, Serum 0.88 mg/dL (0.55-1.02); EST Glomerular Filtration Rate 65 mL/min (>60); Est Glom Filt Rate - Afr Amer 78 mL/min (>60); Estimated Creatinine Clearance 36.97 ml/min; Globulin 3.7 g/dL (2.2-4.2); Glucose 158 mg/dL (74-106); Potassium 3.8 mmol/L (3.5-5.1); Protein, Total 7.9 g/dL (6.4-8.2); Sodium Level 131 mmol/L (136-145)
[2024-04-28 21:51] LABS: Mucous, Urine 0 SEEN /hpf (<or=2+); Red Blood Cells-Urine 0 SEEN /hpf (0-5); Squamous Epithelial Cells - UA 0 SEEN /hpf (5-10); White Blood Cells 0 SEEN /hpf (0-5)
[2024-04-28 21:53] LABS: Color, Urine Straw (Yellow); Glucose, Dipstick 100 mg/dl (Normal); Ketone-Dipstick 5 mg/dl (Negative); Leukocyte Esterase-Dipstick Negative /ul (Negative); Nitrite-Dipstick Negative (Negative); Occult Blood-Urine 25 /ul (Negative); Protein-Dipstick 30 mg/dl (Negative); Specific Gravity, Urine 1.015 (1.002-1.030); Urine Bilirubin Dipstick Negative (Negative); Urine Clarity Clear (Clear); Urine Urobilinogen Normal (Normal)
[2024-04-28 22:00] VITALS: BP 175/88; PULSE 81; RESP 16; O2SAT 97
[2024-04-28 22:00] LABS: Bacteria 1+ /hpf (None Seen)
--- NOTE | 2024-04-28 22:51 | US_ITS ---
INDICATION: Pain. EXAMINATION: Ultrasound US Abdomen RUQ (limited) TECHNIQUE: Chacko scale and color doppler imaging was performed of the right upper quadrant. COMPARISON: CT abdomen and pelvis earlier same day. FINDINGS: LIVER: 12.5 cm length. 1.4 cm cyst in the right lobe. GALLBLADDER Size: Distended. Stones: None. Wall thickness: Borderline thickened. 3.1 mm. Pericholecystic fluid: Small. Sonographic Medrano sign: Negative. EXTRAHEPATIC BILE DUCTS: Common bile duct 11 mm is dilated, near the renae hepatis. The distal CBD was not visualized. PANCREAS: Pancreatic duct is dilated, 4 mm. RIGHT KIDNEY: No hydronephrosis. Small 7 mm echogenic focus in the upper pole probable calculus. ASCITES: None. US/Gallbladder IMPRESSION: Dilated common bile duct. Distal CBD not visualized. Borderline thickened gallbladder wall with no gallstones identified. Minimal pericholecystic fluid. Dilated pancreatic duct. MRI/MRCP may be helpful for further evaluation. Electronically Signed: Caryn Gottlieb MD at 0:21 EDT ,
[2024-04-28] MEDS: Metoclopramide 10 MG/2 ML Vial IV (23:03)
[2024-04-28] MEDS: Morphine 4 MG/ML Syringe IV (23:03)
[2024-04-29] VITALS (15 sets, daily range): BP systolic 54–169; BP diastolic 38–83; PULSE 65–90; RESP 14–20; TEMP 36.4–36.9; O2SAT 92–98; BMI 22.6
--- NOTE | 2024-04-29 00:55 | PCM.HP.STD ---
HPI - General General Date of Admission: 04/29/24 Date of Service: 04/29/24 Chief Complaint: Abdominal pain/nausea/vomiting HPI Narrative ERIK MURCIA, is a 84 F who presented to the emergency department on 04/28/2020 for with a chief complaint of intractable nausea and vomiting and mild abdominal pain that started this morning. Patient was feeling fine yesterday and reported this morning she woke up and was having some nausea and vomiting. Initially she and her thought she had caught some sort of GI infection or had food poisoning but when her symptoms persisted they decided to have her evaluated in the emergency department. She has never had anything like this previously. She has not had any hematemesis. She still has her gallbladder. She denies any fever or chills and has minimal abdominal discomfort. Vital signs at the time of presentation showed a temperature of 98.2, heart rate 89, blood pressure 140/80, respiratory was 18 oxygen saturations were 96% on room air. CBC is overall unremarkable however she does have a left shift with an 81.7% neutrophilia. Chemistry panel shows mild hyponatremia the sodium of 131, normal renal function and hyperbilirubinemia with a bilirubin of 1.4. LFTs are otherwise normal including alkaline phosphatase. Her UA does show ketones and specific gravity is elevated at 1.015. No signs of infection are noted. A CT of her abdomen pelvis was performed and showed biliary dilation with suspected choledocholithiasis and a subtle noncalcified stone in the distal common bile duct, distended gallbladder with findings of possible cholecystitis and colonic diverticulosis without evidence of acute diverticulitis along with a large hiatal hernia. Gallbladder ultrasound showed a dilated common bile duct and a distal common bile duct that was not visualized, borderline thickened gallbladder wall with no gallstones and minimal pericholecystic fluid along with a dilated pancreatic duct. [facility] Medical History (Updated 04/29/24 @ 02:[address] Sophia Parr, DO) Glaucoma TIA (transient ischemic attack) (05/2013) Essential (primary) hypertension Hyperlipidemia Screening for intestinal cancer History of intestinal obstruction (~2014) Home Medications ?Medication ?Instructions ?Recorded ?Last Taken ?Type latanoprost 0.005 % eye drops 1 drp EACH EYE DAILY 01/30/20 Unknown History atorvastatin 20 mg tablet 20 mg PO QHS 02/29/20 Unknown History losartan 50 mg tablet 100 mg PO DAILY 02/29/20 Unknown History diphenhydramine 25 1 tab PO QHS PRN sleep 03/01/20 Unknown History mg-acetaminophen 500 mg tablet (Tylenol PM Extra Strength) carvedilol 6.25 mg tablet 6.25 mg PO BID 04/28/24 Unknown History dorzolamide 22.3 mg-timolol 6.8 1 drp ophthalmic (eye) Q12H 04/28/24 Unknown History mg/mL eye drops Allergy/AdvReac Type Severity Reaction Status Date / Time simvastatin (From Zocor) AdvReac Mild body aches Verified 04/29/24 02:04 Family History Father CVA (cerebral vascular accident) Father CVA (cerebral vascular accident) Aunt Breast cancer Surgical History History of resection of small bowel History of hysterectomy History of colonoscopy Social History (Updated 04/29/24 @ 02:[address] Sophia Parr DO) household members: spouse housing: house Smoking Status: Never smoker alcohol intake: never substance use type: does not use ROS Constitutional Constitutional: Denies anorexia, change in weight, chills, fatigue, fever(s), malaise, night sweats, weakness or other Eyes Eyes: Denies blurry vision, change in eye color, change in vision, discharge from eye(s), double vision, erythema, eye pain, loss of vision or other ENT HEENT: Denies abnormal hearing, dysphagia, ear pain, epistaxis, headache(s), hearing loss, nasal congestion, nasal discharge, post nasal drip, sinus pressure, sore throat or other Cardiovascular Cardiovascular: Denies chest pain, claudication, dyspnea on exertion, edema, lightheadedness, orthopnea, palpitations, paroxysmal nocturnal dyspnea, rapid heart rate, syncope or other Respiratory/Chest Respiratory/Chest: Denies cough, dyspnea, excessive phlegm production, hemoptysis, productive cough, shortness of breath at rest, shortness of breath with exertion, wheezing or other Gastrointestinal Gastrointestinal: Reports abdominal pain, nausea and vomiting; Denies coffee ground emesis, constipation, diarrhea, dyspepsia, hematemesis, hematochezia, loose stools, melena or other Genitourinary Genitourinary: Denies burning urination, difficulty urinating, dysuria, hematuria, nocturia, urinary frequency, urinary hesitancy, urinary incontinence, urinary urgency or other Musculoskeletal Musculoskeletal: Denies arthralgias, back pain, joint pain, joint stiffness, joint swelling, myalgias, neck pain or other Neurologic Neurologic: Denies abnormal gait, abnormal speech, confusion, disequilibrium, dizziness, focal weakness, headache(s), numbness, paresthesias, seizure-like activity, seizures, syncope, tingling, tremor(s) or other Psychiatric Psychiatric: Denies anxiety, depression, homicidal ideation, suicidal ideation or other Endocrine Endocrinology: Denies change in body appearance, cold intolerance, excessive sweating, heat intolerance, polydipsia, polyuria or other Hematologic/Lymphatic Hematologic/Lymphatic: Denies anemia, easy bleeding, easy bruising, lymphadenopathy or other Allergic/Immunologic Allergic/Immunologic: Denies rhinitis, hives, eczemia, asthma or other Vital Signs Vital Signs Vital Signs: 04/28/24 19:37 04/28/24 20:26 04/28/24 22:00 Temperature 98.2 F Temperature Source Temporal Pulse Rate 89 81 Respiratory Rate 18 16 Blood Pressure 140/80 H 184/76 H 175/88 H Blood Pressure Mean 100 112 117 Pulse Ox 96 97 Oxygen Delivery Method Room Air Room Air 04/29/24 00:00 04/29/24 00:20 Temperature 97.8 F Temperature Source Pulse Rate 68 68 Respiratory Rate 17 17 Blood Pressure 169/83 H Blood Pressure Mean 111 Pulse Ox 97 98 Oxygen Delivery Method Room Air Weight Weight: 56.274 kg Body Mass Index (BMI) 22.6 Physical Exam Const alert, oriented x3, average body habitus and well nourished Constitutional Narrative: Elderly, white female, sitting up in bed and appears ill but nontoxic, at bedside General Appearance: cooperative HEENT normocephalic, head/scalp atraumatic and moist oral mucous membranes HEENT Narrative: Mild hearing loss, dentition is poor, Mallampati is 2, no thrush Eyes PERRL, EOMs intact bilaterally and conjunctivae normal Eyes Narrative: No scleral icterus Neck no lymphadenopathy and supple Neck Narrative: Trachea midline, no thyroid enlargement Resp normal respiratory effort, no retractions, no use of accessory muscles and clear to auscultation bilaterally Auscultation: Negative for crackles, rhonchi or wheezes Cardio regular rate, regular rhythm, S1 normal heart sound, S2 normal heart sound, no murmurs, no rub, no gallops and no clicks GI normal to inspection, nondistended, normoactive bowel sounds and soft to palpation; Negative for non-tender GI Narrative: Minimal tenderness in epigastrium Extremity no clubbing, cyanosis or edema Extremity Narrative: Pedal and radial pulses are 2+ bilaterally Neuro oriented x3, moves all extremities and no focal motor deficits Speech: speech normal Psych affect normal Psych Narrative: Appears ill and affect is slightly flat but appropriate for current condition, answers questions appropriately Results Lab / Micro Data 04/28/24 19:45 04/28/24 19:45 Labs: Laboratory Results - last 24 hr 04/28/24 19:45: WBC 8.9, RBC 4.84, Hgb 14.4, Hct 43.0, MCV 88.8, MCH 29.8, MCHC 33.5, RDW Std Deviation 40.6, RDW Coeff of [place] 12.6, Plt Count 261, MPV 11.5, Immature Gran % (Auto) 0.500, Neut % (Auto) 81.7 H, Lymph % (Auto) 13.4 L, [place] % (Auto) 4.0, Eos % (Auto) 0.2, Baso % (Auto) 0.2, Absolute Neuts (auto) 7.2, Absolute Lymphs (auto) 1.19, Nucleated RBC % 0, Sodium 131 L, Potassium 3.8, Chloride 98, Carbon Dioxide 23.0, Anion Gap 10, BUN 10, Creatinine 0.88, Estim Creat Clear Calc 36.97, Est GFR (MDRD) Af Amer 78, Est GFR (MDRD) Non-Af 65, BUN/Creatinine Ratio 11.3, Glucose 158 H, Calcium 9.5, Total Bilirubin 1.40 H, AST 19, ALT 27, Alkaline Phosphatase 62, Total Protein 7.9, Albumin 4.2, Globulin 3.7, Albumin/Globulin Ratio 1.1 04/28/24 21:43: Urine Color Straw, Urine Clarity Clear, Urine pH 8.0, Ur Specific [place] 1.015, Urine Protein 30 H, Urine Glucose (UA) 100 H, Urine Ketones 5 H, Urine Occult Blood 25 H, Urine Nitrite Negative, Urine Bilirubin Negative, Urine Urobilinogen Normal, Ur Leukocyte Esterase Negative, Urine RBC 0 SEEN, Urine WBC 0 SEEN, Ur Squamous Epith Cells 0 SEEN, Urine Bacteria 1+, Urine Mucus 0 SEEN Micro: Microbiology 04/28/24 23:17 Mucosa - Nose SARS-CoV-2, Influenza & RSV (PCR) - Final Imaging Radiology Impression Abdomen/Pelvis CT 04/28/24 21:02 IMPRESSION: Biliary dilatation with suspected choledocholithiasis, subtle noncalcified stone in the distal CBD. Distended gallbladder with findings of possible cholecystitis. Ultrasound correlation may be helpful. Colonic diverticulosis without evidence of acute diverticulitis. Large hiatal hernia. Electronically Signed: Caryn Gottlieb MD at 22:38 EDT , Gallbladder Ultrasound 04/28/24 22:51 IMPRESSION: Dilated common bile duct. Distal CBD not visualized. Borderline thickened gallbladder wall with no gallstones identified. Minimal pericholecystic fluid. Dilated pancreatic duct. MRI/MRCP may be helpful for further evaluation. Electronically Signed: Caryn Gottlieb MD at 0:21 EDT , Assessment & Plan Assessment/Plan (1) Nausea and vomiting: (2) Choledocholithiasis: (3) Hyperbilirubinemia: (4) Hyponatremia: PLAN: Plan Intractable nausea and vomiting secondary to choledocholithiasis -CT and ultrasound are consistent with dilated common bile duct and ultrasound shows dilated pancreatic duct -N.p.o. -IV fluids with LR at 75 cc/h continuously -As needed antiemetics -As needed pain medication -Consult to Dr. Kelly for ERCP tomorrow--> this was initiated by the emergency department -May need general surgery involvement for consideration of cholecystectomy versus outpatient consultation for the same--> will need to discuss further with Dr. Kelly Hyperbilirubinemia -Likely related to the above -Will trend and repeat in a.m. -The rest of liver functions are normal Hyponatremia -Highly suspect hypovolemic hyponatremia -Patient's UA appears dry with elevated specific gravity and patient has been not able to eat solute all day -IV fluids as noted above -Repeat lab in a.m. -If sodium does not improve may need further workup Hyperlipidemia -Hold home atorvastatin Essential hypertension -Continue home carvedilol -Continue losartan -As needed hydralazine for systolic blood pressure greater than 160 Glaucoma -Continue home eyedrops DVT prophylaxis -Lovenox subcu daily CODE STATUS -DNR CCA with no intubation -Discussed with patient and at the time of admission the CODE STATUS would be revoked for procedures and then reinstated post intervention--> they voiced understanding Charges/Coding Visit Charges Inpatient E&M: 60230 Init Hosp L2
[2024-04-29] MEDS: Ondansetron 4 MG/2 ML Vial IV (01:08)
[2024-04-29] MEDS: Lactated Ringers 1,000 ML 75 ML IV (02:22)
--- NOTE | 2024-04-29 04:34 | EKG12_ITS ---
Test Reason : PRE-OP Blood Pressure : / mmHG Vent. Rate : 094 BPM Atrial Rate : 094 BPM P-R Int : 168 ms QRS Dur : 084 ms QT Int : 394 ms P-R-T Axes : 063 055 059 degrees QTc Int : 492 ms Normal sinus rhythm Nonspecific ST abnormality Prolonged QT Abnormal ECG When compared with ECG of 30-JAN-2020 12:43, QT has lengthened Confirmed by RAQUEL ENNIS, SUHAIL ([id number]), editor managing newspaper JEFRY LYN ([id number]) on 04/30/2024 7:20:18 AM Referred By: DANN Confirmed By:KEON GARCÍA MD
[2024-04-29] MEDS: 0.9% Saline Lock 10 ML Syringe IV (05:52)
[2024-04-29] MEDS: proCHLORPERazine 10 MG/2 ML Vial 5 MG IV (05:52)
--- NOTE | 2024-04-29 06:40 | PCM.PN.HOSP ---
Reason for Visit Reason for Visit: Diagnoses Other disorders of bilirubin metabolism (04/29/24) Hypo-osmolality and hyponatremia (04/29/24) Calculus of bile duct without cholangitis or cholecystitis without obstruction (04/29/24) Nausea with vomiting, unspecified (04/29/24) Subjective Subjective Patient with no acute events overnight per self and per nursing report. Patient notes significant improvement with no further nausea, emesis or abdominal pain. Patient underwent ERCP with significant noted stones which were retrieved and a temporary stent has been placed per discussion with gastroenterology. Reviewed case with surgery and discussed this with patient and her and at this time she does not require any emergent surgical intervention and may not potentially need cholecystectomy in the future either but plan would be to follow-up outpatient with surgery. Patient eager for transition to clears and diet advancement as well as discharge to home once appropriate. Patient denies fevers, chills, nausea, emesis, abdominal pain, chest pain or dyspnea. Objective Data Objective Data Vital Signs: Vital Signs Temp Pulse Resp BP Pulse Ox O2 Del Method 97.5 F L 75 20 H 154/72 H 94 Room Air 04/29/24 02:47 04/29/24 02:47 04/29/24 02:47 04/29/24 02:47 04/29/24 02:47 04/29/24 02:47 Oxygen Delivery Method Room Air Weight: 124 lb 1.007 oz Body Mass Index (BMI) 22.6 Intake & Output: Intake and Output for Last 24 Hours 04/27/24 04/28/24 04/29/24 23:59 23:59 23:59 Intake Total 500 / 500 Balance 500 / 500 Lab / Micro Data 04/29/24 06:27 04/29/24 06:27 Labs: Laboratory Results - last 24 hr 04/28/24 19:45: WBC 8.9, RBC 4.84, Hgb 14.4, Hct 43.0, MCV 88.8, MCH 29.8, MCHC 33.5, RDW Std Deviation 40.6, RDW Coeff of [place] 12.6, Plt Count 261, MPV 11.5, Immature Gran % (Auto) 0.500, Neut % (Auto) 81.7 H, Lymph % (Auto) 13.4 L, Mccreary % (Auto) 4.0, Eos % (Auto) 0.2, Baso % (Auto) 0.2, Absolute Neuts (auto) 7.2, Absolute Lymphs (auto) 1.19, Nucleated RBC % 0, Sodium 131 L, Potassium 3.8, Chloride 98, Carbon Dioxide 23.0, Anion Gap 10, BUN 10, Creatinine 0.88, Estim Creat Clear Calc 36.97, Est GFR (MDRD) Af Amer 78, Est GFR (MDRD) Non-Af 65, BUN/Creatinine Ratio 11.3, Glucose 158 H, Calcium 9.5, Total Bilirubin 1.40 H, AST 19, ALT 27, Alkaline Phosphatase 62, Total Protein 7.9, Albumin 4.2, Globulin 3.7, Albumin/Globulin Ratio 1.1 04/28/24 21:43: Urine Color Straw, Urine Clarity Clear, Urine pH 8.0, Ur Specific [place] 1.015, Urine Protein 30 H, Urine Glucose (UA) 100 H, Urine Ketones 5 H, Urine Occult Blood 25 H, Urine Nitrite Negative, Urine Bilirubin Negative, Urine Urobilinogen Normal, Ur Leukocyte Esterase Negative, Urine RBC 0 SEEN, Urine WBC 0 SEEN, Ur Squamous Epith Cells 0 SEEN, Urine Bacteria 1+, Urine Mucus 0 SEEN Micro: Microbiology 04/28/24 23:17 Mucosa - Nose SARS-CoV-2, Influenza & RSV (PCR) - Final Radiography Diagnostic Testing: Radiology Impression Abdomen/Pelvis CT 04/28/24 21:02 IMPRESSION: Biliary dilatation with suspected choledocholithiasis, subtle noncalcified stone in the distal CBD. Distended gallbladder with findings of possible cholecystitis. Ultrasound correlation may be helpful. Colonic diverticulosis without evidence of acute diverticulitis. Large hiatal hernia. Electronically Signed: Caryn Gottlieb MD at 22:38 EDT Reading Location ID and State: [facility] / [place] Tel , Service support , Gallbladder Ultrasound 04/28/24 22:51 IMPRESSION: Dilated common bile duct. Distal CBD not visualized. Borderline thickened gallbladder wall with no gallstones identified. Minimal pericholecystic fluid. Dilated pancreatic duct. MRI/MRCP may be helpful for further evaluation. Electronically Signed: Caryn Gottlieb MD at 0:21 EDT Reading Location ID and State: [facility] / [place] Tel , Service support , Physical Exam Narrative Physical Examination: General: Awake, alert, oriented x 3 and cooperative, seated upright in MS bed, fatigued but otherwise no acute distress, denies any pain at this time, nausea and emesis resolved. Skin: Normal color, normal turgor, no icterus, no cyanosis. HEENT: AT/NC, EOMI, PERRLA, mildly dry MM. Lungs: CTA bilaterally, moderate effort, mild decrease BL bases, no rales, ronchi or wheezing. Heart: Regular rate and rhythm; no gallop, rub audible. Abdomen: Soft, NTTP, ND, normal BS. Extremities: No cyanosis, clubbing, or edema. Neurological: Patient awake, alert, oriented as noted, cognitive function intact; pupils equally reactive to light and accommodation, cranial nerves II-XII grossly normal, moving all 4 extremities, no focal deficits, strength mildly globally creased. Psychiatric: Affect appears fatigued otherwise normal, no acute evidence of depressive or anxiety feelings. Assessment & Plan Assessment/Plan (1) Choledocholithiasis: PLAN: Plan The patient is an 84 y/o F w/ PMHx: Hx TIA, HTN, HLD, Hx SBO s/p resection small bowel who presents to the [facility] ED on 04/29/24 with history of onset significant abdominal pain with associated nausea and emesis upon awakening on the morning prior to 2-day of presentation prompt eventual ED evaluation. #1. Intractable nausea and emesis secondary to acute choledocholithiasis without evidence of acute cholecystitis with related hyperbilirubinemia, mild: CT abdomen and pelvis with contrast with biliary dilatation with suspected choledocholithiasis, subtle noncalcified stone in the distal common bile duct, distended gallbladder with findings of possible cholecystitis, colonic diverticulosis without any evidence of acute diverticulitis, large hiatal hernia. Gallbladder ultrasound with dilated common bile duct, distal CBD not visualized, borderline thickened gallbladder with no gallstones identified, minimal pericholecystic fluid, dilated pancreatic duct. 04/29/24 ERCP with main bile duct dilated, evidence of notable choledocholithiasis with complete removal accomplished by biliary sphincterotomy and balloon extraction, pancreatic stones identified with biliary sphincterotomy performed, biliary tree swept, left main hepatic duct successfully dilated, temporary stent placed into the common bile duct, pancreatic sphincterotomy performed and ventral pancreatic duct swept. Presentation CMP with total bilirubin 1.40, AST/ALT , alk phos 62 with repeat 04/29/2024 with total bilirubin 1.30, AST/ALT , alk phos 50. Reviewed case with general surgery on-call Dr. Hollingsworth who recommended at this time follow-up outpatient in her office however no definitive removal of the gallbladder needs at this time. Given clinical improvement and stability per discussion with GI we will plan follow-up outpatient and discharged to home. #2. Hyponatremia, mild, suspect hypovolemic component given GI losses secondary to #1: Admission presentation sodium 131 in the setting of GI losses, patient maintain on hydration with repeat 04/29/2024 sodium 130, encourage continued hydration, repeat CMP outpatient with PCP. #3. Hypokalemia: Admission K+ 3.3, supplementation given, encourage outpatient CMP follow-up assessment per PCP. Hypertension: Continue home regimen including Coreg, losartan, PRN hydralazine. #4. Hyperlipidemia: Initially held home statin therapy however given only bilirubin mildly increased and trending down will reinitiate at discharge. #5. Glaucoma: Unclear exact type, continued on home eyedrop regimen. #6. DVT prophylaxis: Lovenox. #7. CODE STATUS: DNR-CCA, no intubation. Charges/Coding Procedures Hospitalists Procedures: Other Procedure - See Report (56553, nonbilling code, admit same day.)
[2024-04-29 07:14] LABS: Absolute Lymphocyte Count 1.33 X10^3/uL (0.83-4.51); Absolute Neutrophil Count 9.1 X10^3/uL (2.0-7.7); Basophil# 0.01 X10^3/uL; Basophil% 0.1 % (0-1); Hematocrit 39.9 % (37-47); Hemoglobin 13.4 g/dL (12.0-15.0); Lymphocyte # 1.33 X10^3/ul (0.83-4.51); Lymphocyte % 12.1 % (19-41); Mean Corp Hgb Conc 33.6 g/dL (32-36); Mean Corpuscular Hgb 29.7 pg (27.0-32.0); Mean Corpuscular Volume 88.5 fL (81-99); Mean Platelet Vol. 10.9 fl (6.2-12.0); Monocyte# 0.55 X10^3/uL; NRBC Flagged by Analyzer 0 % (0-5); Neutrophil # 9.05 X10^3/uL (2.7-7.7); Neutrophil % 82.3 % (47-70); Platelet Count 223 K/mm3 (150-450); RBC Distribution Width CV 12.6 % (11.6-14.6); RBC Distribution Width SD 40.7 fl (35.1-43.9); Red Blood Count 4.51 M/mm3 (4.2-5.4)
[2024-04-29 07:47] LABS: ALB/GLOB Ratio 1.3 RATIO (0.9-2.4); AST(SGOT) 15 U/L (15-37); Alanine Aminotransfer ALT/SGPT 22 U/L (13-56); Albumin, Serum 3.7 g/dL (3.2-5.0); Alkaline Phosphatase 50 U/L (45-117); Anion Gap 12 (5-15); BUN 9 mg/dL (7-18); BUN/Creat Ratio 10.2 RATIO (10-20); Calcium,Total 9.1 mg/dL (8.5-10.1); Chloride 98 mmol/L (98-107); Creatinine, Serum 0.88 mg/dL (0.55-1.02); EST Glomerular Filtration Rate 65 mL/min (>60); Est Glom Filt Rate - Afr Amer 79 mL/min (>60); Estimated Creatinine Clearance 36.97 ml/min; Globulin 2.9 g/dL (2.2-4.2); Glucose 143 mg/dL (74-106); Magnesium 1.9 mg/dL (1.6-2.6); Phosphorus 3.5 mg/dL (2.5-4.9); Potassium 3.3 mmol/L (3.5-5.1); Protein, Total 6.6 g/dL (6.4-8.2); Sodium Level 130 mmol/L (136-145)
[2024-04-29] MEDS: Dorzolamide HCL/Timolol 10 ml Bottle 1 DRP OPHTHALMIC (09:53)
[2024-04-29] MEDS: Pantoprazole Sodium 40 MG in 0.9% Normal Saline (100mL MB+) 100 ML 330 MG IV (09:53)
[2024-04-29] MEDS: Lactated Ringers 1,000 ML 15 ML IV (10:44)
--- NOTE | 2024-04-29 10:49 | CASEMGMT ---
LESVIA LUGO Assessment Face to Face with patient for initial transition planning/care coordination assessment. LESVIA LUGO introduced self and role at [facility], pt voices understanding. Pt is A&Ox4 and is resting comfortably in bed and is calm. Care providers, pharmacy, and demographics verified. Admitting dx: Choledocholithiasis LACE Strata: 1 PCP: Carol Quiroga Specialists: Denies Preferred Pharmacy: [facility] Insurance: [facility] Prescription Benefit: Yes LNOK: [place] (H) Living Arrangements: Pt lives with her in a ranch style home with 2 steps to enter ADLs/IADLs: Ind Transportation: Self, . Denies concerns DME: BP Monitor. denies further needs HHC/SNF: Denies Hx or needs Pt?s goal: Home Plan: Home no needs. 6-Click is 20. Pt denies the need for HHC, OP Tx, or SNF. Pt states that she feels safe discharging home once medically ready with the help of her . Pt denies further questions or concerns. Fransico Mcdermott RN, CM
--- NOTE | 2024-04-29 11:10 | PCM.PRE.AN2 ---
ASA Classification* ASA Classification ASA Classification: 2 and E Assessment & Plan Anesthesia* Anesthesia Assessment Anesthesia Assessment: Discussed sedation and/or anesthesia options, risks, benefits, and alternatives with patient/parents/legal guardian/POA. Questions invited. The patient/parents/legal guardian/POA seems to understand and agrees to proceed with anesthesia plan. Reviewed the physical assessment, medical history, allergy history and patient home medications list prior to surgery/procedure/anesthetic and documented any changes. Performed airway and anesthesia risk assessments. Anesthesia Type Anesthesia Type: General (see written pre anesthesia record for full assessment) Anesthesia Focused Assessment* Temperature: 98.1 F Pulse Rate: 72 Blood Pressure: 139/70 Respiratory Rate: 18 Pulse Ox: 92 Airway Assessment Mouth opens: >3 cm Mallampati Score: II Focused Labs Anesthesia Preop lab: CBC WBC 11.0 K/mm3 (4.4-11.0) 04/29/24 06:27 RBC 4.51 M/mm3 (4.2-5.4) 04/29/24 06:27 Hgb 13.4 g/dL (12.0-15.0) 04/29/24 06:27 Hct 39.9 % (37-47) 04/29/24 06:27 Plt Count 223 K/mm3 (150-450) 04/29/24 06:27 CHEMISTRY Potassium 3.3 mmol/L (3.5-5.1) L 04/29/24 06:27 Sodium 130 mmol/L (136-145) L 04/29/24 06:27 Magnesium 1.9 mg/dL (1.6-2.6) 04/29/24 06:27 Phosphorus 3.5 mg/dL (2.5-4.9) 04/29/24 06:27 BUN 9 mg/dL (7-18) 04/29/24 06:27 Creatinine 0.88 mg/dL (0.55-1.02) 04/29/24 06:27 Glucose 143 mg/dL (74-106) H 04/29/24 06:27 POC Glucose 109 mg/dL (70-110) 05/09/13 15:59 TSH 1.90 uIU/mL (0.358-3.74) 10/28/13 09:40 COAG PT 12.5 SECONDS (11.9-14.4) 05/09/13 15:55 Pre-Assessment Diagnosis/Proposed Procedure Planned Operative Procedure(s): ercp Anesthesia History Anesthesia History - lens fabricating machine tender: Anesthesia History - lens fabricating machine tender Hx Hospitalization Any Problems With Anesthesia Yes: cant remember what 04/29/24 02:02 problems as pt is very tired Cholinesterase deficiency You/Your Family Experience fever (hyperthermia) with Relationship Recent Exposure to Contagious No 04/29/24 02:02 Disease Does patient have nerve No 04/29/24 02:02 stimulator Patient instructed to have No 04/29/24 02:02 device shut off --Does patient have Pacemaker No 04/29/24 10:01 or ICD? When Was Last Pacemaker Check QUESTION #4 FULL TEXT: You/Your Family Experience fever (hyperthermia) with Anesthesia Last Oral Intake Last Oral intake: Last Oral Intake NPO since 00:00 04/29/24 10:01 Meds taken in AM with sips of No 04/29/24 10:01 water? Meds patient instructed to take am of surgery PONV PONV - lens fabricating machine tender: PONV - lens fabricating machine tender Female HX of Motion Sickness HX of N/V After Surgery Non-Smoker Duration of Surgery greater than 60 minutes Number of Risk Factors PONV Score Height & Weight Height & Weight: Anesthesia: Height & Weight Height 5 ft 2 in 04/29/24 10:01 Weight: 56.274 kg 04/29/24 10:01 Body Mass Index (BMI) 22.6 04/29/24 10:01 Respiratory Assessment Respiratory Assessment - lens fabricating machine tender: Respiratory Tract Infection Hx - lens fabricating machine tender Hx Respiratory Tract Infection No 04/29/24 02:02 STOP Sleep Apnea STOP Sleep Apnea - lens fabricating machine tender: STOP Sleep Apnea - lens fabricating machine tender Hx Hypertension Yes 04/29/24 01:55 Hx Sleep Apnea No 04/29/24 01:55 CPAP No 04/29/24 01:55 BIPAP No 04/29/24 01:55 Do you snore loudly (louder No 04/29/24 01:55 than talking or can be heard Do you often feel tired/ No 04/29/24 01:55 fatigued/ sleepy during daytime? Has anyone observed you stop No 04/29/24 01:55 breathing during sleep? STOP Results Negative 04/29/24 01:55 QUESTION #5 FULL TEXT : Do you snore loudly (louder than talking or can be heard through closed doors)? Tobacco Use History Tobacco Use History - lens fabricating machine tender: Tobacco Use History - lens fabricating machine tender Tobacco Use Smoking Status Never smoker 04/29/24 02:08 Hx Tobacco Use No 04/29/24 01:55 Years Smoking Packs Smoked per Day Smoking Cessation Date was within the last 15 years Hx Smoking Cessation Date Hx Smoking Cessation Counseling Hematologic Medial History Hematologic Hx - lens fabricating machine tender: Hematologic Medical Hx - head holder Hx of Blood Transfusion No 04/29/24 01:55 Hx of Transfusion in last 3 No 04/29/24 01:55 Months Date of Last Transfusion (if within last 3 months) Ever experience any problems No 04/29/24 01:55 with transfusion(s)? Specify any problems Hx of Preganancy in last 3 No 04/29/24 01:55 Months Nurse Filling Out Transfusion TCLEVIDEN 04/29/24 01:55 & Questions: Date: 04/29/24 04/29/24 01:55 Time: 02:17 04/29/24 01:55 Patient unable to answer at this time (ie. confused, unrespo /Reproduction History /Reproductive History - lens fabricating machine tender: /Reproductive Hx- lens fabricating machine tender Hx Now Gestational Age (in weeks): EDC: Hx Hx Para Hx Section SAB Active Medications Active Medications: Current Medications Generic Name Dose Route Start Last Admin Trade Name Freq PRN Reason Stop Dose Admin Carvedilol 6.25 mg 04/29/24 10:00 Carvedilol 6.25 Mg Tablet PO BID [facility] Protocol Dorzolamide/Timolol 1 drp 04/29/24 10:00 04/29/24 09:53 Dorzolamide Hcl/Timolol 10 Ml Bottle OPHTHALMIC 1 drp Q12 ANN Administration Enoxaparin Sodium 40 mg 04/29/24 10:00 Enoxaparin 40 Mg/0.4 Ml Syringe SC DAILY ANN Hydralazine HCl 10 mg 04/29/24 01:50 Hydralazine 20 Mg/Ml Vial IV Q6H PRN PRN SBP>160 Protocol Lactated Ringer's 1,000 mls @ 75 mls/hr 04/29/24 01:50 04/29/24 09:55 IV 0 mls/hr .[id number] ANN Infusion Sodium Chloride 250 mls @ 15 mls/hr 04/29/24 02:03 IV .[id number] PRN Additional IVPB Infusion Sodium Chloride 250 mls @ 15 mls/hr 04/29/24 02:03 IV .[id number] PRN Saline Flush Pantoprazole Sodium 40 mg/ 110 mls @ 330 mls/hr 04/29/24 10:00 04/29/24 10:15 Sodium Chloride IV Infused Q24 ANN Infusion Lactated Ringer's 1,000 mls @ 15 mls/hr 04/29/24 10:45 04/29/24 10:44 IV 15 mls/hr .Q48H ANN Administration Latanoprost 1 drp 04/29/24 10:00 Latanoprost 0.005% 1 Bottle EACH EYE DAILY [facility] Losartan Potassium 100 mg 04/29/24 10:00 Losartan Potassium 100 Mg Tablet PO DAILY [facility] Protocol Melatonin 3 mg 04/29/24 01:50 Melatonin 3 Mg Tablet PO QHS PRN PRN INSOMNIA Morphine Sulfate 2 - 4 mg 04/29/24 01:50 Morphine 2 Mg/Ml Syringe IV Q3H PRN PRN Pain Score 6-10 Ondansetron HCl 4 mg 04/29/24 01:50 Ondansetron 4 Mg/2 Ml Vial IV Q8H PRN PRN NAUSEA/VOMITING Prochlorperazine Edisylate 5 mg 04/29/24 01:50 04/29/24 05:52 Prochlorperazine 10 Mg/2 Ml Vial IV 5 mg Q4H PRN PRN Administration Breakthrough nausea/vomiting Senna/Docusate Sodium 2 tablet 04/29/24 01:50 Senna/Docusate Sodium 1 Tablet PO BID PRN PRN Constipation Sodium Chloride 10 - 40 ml 04/29/24 02:03 04/29/24 05:52 0.9% Saline Lock 10 Ml Syringe IV 10 ml UD PRN Administration SALINE FLUSH PFSH Medical History Glaucoma TIA (transient ischemic attack) (05/2013) Essential (primary) hypertension Hyperlipidemia Screening for intestinal cancer History of intestinal obstruction (~2014) Home Medications ?Medication ?Instructions ?Recorded ?Last Taken ?Type latanoprost 0.005 % eye drops 1 drp EACH EYE DAILY 01/30/20 Unknown History atorvastatin 20 mg tablet 20 mg PO QHS 02/29/20 Unknown History losartan 50 mg tablet 100 mg PO DAILY 02/29/20 Unknown History diphenhydramine 25 1 tab PO QHS PRN sleep 03/01/20 Unknown History mg-acetaminophen 500 mg tablet (Tylenol PM Extra Strength) carvedilol 6.25 mg tablet 6.25 mg PO BID 04/28/24 Unknown History dorzolamide 22.3 mg-timolol 6.8 1 drp ophthalmic (eye) Q12H 04/28/24 Unknown History mg/mL eye drops Allergy/AdvReac Type Severity Reaction Status Date / Time simvastatin (From Zocor) AdvReac Mild body aches Verified 04/29/24 02:04 Family History Father CVA (cerebral vascular accident) Father CVA (cerebral vascular accident) Aunt Breast cancer Surgical History History of resection of small bowel History of hysterectomy History of colonoscopy Social History household members: spouse housing: house Smoking Status: Never smoker alcohol intake: never substance use type: does not use Review of Systems (Anesthesia) ROS Narrative System reviewed and no additional complaints, except as documented.
--- NOTE | 2024-04-29 12:10 | RAD_ITS ---
STUDY: ERCP. REASON FOR EXAM: Female, 84 years old. Choledocholithiasis. FLUOROSCOPY TIME (if supplied): ( 1 minute and 14 seconds ) minutes/seconds. 12.34 mGy. TECHNIQUE: Fluoroscopic services provided for ERCP. COMPARISON: None. FINDINGS: Choledocholithiasis. Placement of a biliary stent. RAD/ERCP Biliary/Pancreas IMPRESSION: Choledocholithiasis. Biliary stent was placed. Electronically Signed: Lizandro Almanzar MD at 7:53 EDT ,
--- NOTE | 2024-04-29 13:01 | PCM.POST.ANE ---
Anesthesia: Postop Eval I Current Vital Signs Temperature: 98.1 F Pulse Rate: 67 Blood Pressure: 101/62 Respiratory Rate: 16 Pulse Ox: 94 Oxygen Delivery Method: Room Air Assessment Airway patent: Yes Spontaneous unlabored respirations: Yes Mental status: Asleep nausea: No Vomiting: No Anesthesia Complication: No Fluid Hydration Crystalloid volume administer (ml): 400 Total IV fluid infused: 400 Progress Note Anesthesia document: Postop Eval 1 completed: Yes
--- NOTE | 2024-04-29 13:04 | PCM.POSTANE2 ---
Anesthesia Postop Eval I Sum Postop Eval Completion status Anesthesia document: Postop Eval 1 completed: Yes Anesthesia Postop Eval I Summary Anesthesia Postop Eval I Summary: Anesthesia Postop Eval I: Assessment Summary Airway patent Yes 04/29/24 13:01 [email or web address] Spontaneous unlabored Yes 04/29/24 13:01 [email or web address] respirations Mental status Asleep 04/29/24 13:01 [email or web address] nausea No 04/29/24 13:01 [email or web address] Vomiting No 04/29/24 13:01 [email or web address] Anesthesia Postop Eval I: Fluid Summary Crystalloid volume administer 400 04/29/24 13:01 [email or web address] (ml) Colloids volume administered ( ml) Blood Product volume administered (ml) Total IV fluid infused 400 04/29/24 13:01 [email or web address] Anesthesia Postop Eval I: Summary Notes Anesthesia Complication No 04/29/24 13:01 [email or web address] Anesthesia Complication Comment: Post-operative progress note Anesthesia: Postop Eval II Evaluation Mental status: Awake Pain Level: 0 nausea: No Vomiting: No
--- NOTE | 2024-04-29 13:05 | EX.PCM.CON.G ---
HPI Consult Data Date of Consult: 04/29/24 HPI Narrative Reason for Consultation: Choledocholithiasis HPI Narrative: ERIK MURCIA, is a 84 F who presented to the emergency department on 04/28/2020 for with a chief complaint of intractable nausea and vomiting and mild abdominal pain that started this morning. Patient was feeling fine yesterday and reported this morning she woke up and was having some nausea and vomiting. Initially she and her thought she had caught some sort of GI infection or had food poisoning but when her symptoms persisted they decided to have her evaluated in the emergency department. She denied any fever or chills and has minimal abdominal discomfort. Vital signs at the time of presentation showed a temperature of 98.2, heart rate 89, blood pressure 140/80, respiratory was 18 oxygen saturations were 96% on room air. CBC is overall unremarkable however she does have a left shift with an 81.7% neutrophilia. Chemistry panel shows mild hyponatremia the sodium of 131, normal renal function and hyperbilirubinemia with a bilirubin of 1.4. LFTs are otherwise normal including alkaline phosphatase. Her UA does show ketones and specific gravity is elevated at 1.015. No signs of infection are noted. A CT of her abdomen pelvis was performed and showed biliary dilation with suspected choledocholithiasis and a subtle noncalcified stone in the distal common bile duct, distended gallbladder with findings of possible cholecystitis and colonic diverticulosis without evidence of acute diverticulitis along with a large hiatal hernia. Gallbladder ultrasound showed a dilated common bile duct and a distal common bile duct that was not visualized, borderline thickened gallbladder wall with no gallstones and minimal pericholecystic fluid along with a dilated pancreatic duct. [facility], [facility] Medical History Glaucoma TIA (transient ischemic attack) (05/2013) Essential (primary) hypertension Hyperlipidemia Screening for intestinal cancer History of intestinal obstruction (~2014) Home Medications ?Medication ?Instructions ?Recorded ?Last Taken ?Type latanoprost 0.005 % eye drops 1 drp EACH EYE DAILY 01/30/20 Unknown History atorvastatin 20 mg tablet 20 mg PO QHS 02/29/20 Unknown History losartan 50 mg tablet 100 mg PO DAILY 02/29/20 Unknown History diphenhydramine 25 1 tab PO QHS PRN sleep 03/01/20 Unknown History mg-acetaminophen 500 mg tablet (Tylenol PM Extra Strength) carvedilol 6.25 mg tablet 6.25 mg PO BID 04/28/24 Unknown History dorzolamide 22.3 mg-timolol 6.8 1 drp ophthalmic (eye) Q12H 04/28/24 Unknown History mg/mL eye drops Allergy/AdvReac Type Severity Reaction Status Date / Time simvastatin (From Zocor) AdvReac Mild body aches Verified 04/29/24 02:04 Family History Father CVA (cerebral vascular accident) Father CVA (cerebral vascular accident) Aunt Breast cancer Surgical History History of resection of small bowel History of hysterectomy History of colonoscopy Social History household members: spouse housing: house Smoking Status: Never smoker alcohol intake: never substance use type: does not use ROS Constitutional Constitutional: Denies anorexia, change in weight, chills, fatigue, fever(s), malaise, night sweats, weakness or other Eyes Eyes: Denies blurry vision, change in eye color, change in vision, discharge from eye(s), double vision, erythema, eye pain, loss of vision or other ENT HEENT: Denies abnormal hearing, dysphagia, ear pain, epistaxis, headache(s), hearing loss, nasal congestion, nasal discharge, post nasal drip, sinus pressure, sore throat or other Cardiovascular Cardiovascular: Denies chest pain, claudication, dyspnea on exertion, edema, lightheadedness, orthopnea, palpitations, paroxysmal nocturnal dyspnea, rapid heart rate, syncope or other Respiratory/Chest Respiratory/Chest: Denies cough, dyspnea, excessive phlegm production, hemoptysis, productive cough, shortness of breath at rest, shortness of breath with exertion, wheezing or other Gastrointestinal Gastrointestinal: Reports abdominal pain, nausea and vomiting; Denies coffee ground emesis, constipation, diarrhea, dyspepsia, hematemesis, hematochezia, loose stools, melena or other Genitourinary Genitourinary: Denies burning urination, difficulty urinating, dysuria, hematuria, nocturia, urinary frequency, urinary hesitancy, urinary incontinence, urinary urgency or other Musculoskeletal Musculoskeletal: Denies arthralgias, back pain, joint pain, joint stiffness, joint swelling, myalgias, neck pain or other Neurologic Neurologic: Denies abnormal gait, abnormal speech, confusion, disequilibrium, dizziness, focal weakness, headache(s), numbness, paresthesias, seizure-like activity, seizures, syncope, tingling, tremor(s) or other Psychiatric Psychiatric: Denies anxiety, depression, homicidal ideation, suicidal ideation or other Endocrine Endocrinology: Denies change in body appearance, cold intolerance, excessive sweating, heat intolerance, polydipsia, polyuria or other Hematologic/Lymphatic Hematologic/Lymphatic: Denies anemia, easy bleeding, easy bruising, lymphadenopathy or other Allergic/Immunologic Allergic/Immunologic: Denies rhinitis, hives, eczemia, asthma or other Physical Exam Const alert, oriented x3, average body habitus and well nourished General Appearance: cooperative HEENT normocephalic, head/scalp atraumatic and moist oral mucous membranes HEENT Narrative: Mild hearing loss, dentition is poor, Mallampati is 2, no thrush Eyes PERRL, EOMs intact bilaterally and conjunctivae normal Eyes Narrative: No scleral icterus Neck no lymphadenopathy and supple Neck Narrative: Trachea midline, no thyroid enlargement Resp normal respiratory effort, no retractions, no use of accessory muscles and clear to auscultation bilaterally Auscultation: Negative for crackles, rhonchi or wheezes Cardio regular rate, regular rhythm, S1 normal heart sound, S2 normal heart sound, no murmurs, no rub, no gallops and no clicks GI normal to inspection, nondistended, normoactive bowel sounds and soft to palpation; Negative for non-tender GI Narrative: Minimal tenderness in epigastrium Extremity no clubbing, cyanosis or edema Extremity Narrative: Pedal and radial pulses are 2+ bilaterally Neuro oriented x3, moves all extremities and no focal motor deficits Speech: speech normal Psych affect normal Psych Narrative: Appears ill and affect is slightly flat but appropriate for current condition, answers questions appropriately Lab / Micro Data 04/29/24 06:27 04/29/24 06:27 Labs: Laboratory Results - last 24 hr 04/28/24 19:45: WBC 8.9, RBC 4.84, Hgb 14.4, Hct 43.0, MCV 88.8, MCH 29.8, MCHC 33.5, RDW Std Deviation 40.6, RDW Coeff of [place] 12.6, Plt Count 261, MPV 11.5, Immature Gran % (Auto) 0.500, Neut % (Auto) 81.7 H, Lymph % (Auto) 13.4 L, [place] % (Auto) 4.0, Eos % (Auto) 0.2, Baso % (Auto) 0.2, Absolute Neuts (auto) 7.2, Absolute Lymphs (auto) 1.19, Nucleated RBC % 0, Sodium 131 L, Potassium 3.8, Chloride 98, Carbon Dioxide 23.0, Anion Gap 10, BUN 10, Creatinine 0.88, Estim Creat Clear Calc 36.97, Est GFR (MDRD) Af Amer 78, Est GFR (MDRD) Non-Af 65, BUN/Creatinine Ratio 11.3, Glucose 158 H, Calcium 9.5, Total Bilirubin 1.40 H, AST 19, ALT 27, Alkaline Phosphatase 62, Total Protein 7.9, Albumin 4.2, Globulin 3.7, Albumin/Globulin Ratio 1.1 04/28/24 21:43: Urine Color Straw, Urine Clarity Clear, Urine pH 8.0, Ur Specific [place] 1.015, Urine Protein 30 H, Urine Glucose (UA) 100 H, Urine Ketones 5 H, Urine Occult Blood 25 H, Urine Nitrite Negative, Urine Bilirubin Negative, Urine Urobilinogen Normal, Ur Leukocyte Esterase Negative, Urine RBC 0 SEEN, Urine WBC 0 SEEN, Ur Squamous Epith Cells 0 SEEN, Urine Bacteria 1+, Urine Mucus 0 SEEN 04/29/24 06:27: WBC 11.0, RBC 4.51, Hgb 13.4, Hct 39.9, MCV 88.5, MCH 29.7, MCHC 33.6, RDW Std Deviation 40.7, RDW Coeff of [place] 12.6, Plt Count 223, MPV 10.9, Immature Gran % (Auto) 0.500, Neut % (Auto) 82.3 H, Lymph % (Auto) 12.1 L, [place] % (Auto) 5.0, Eos % (Auto) 0.0, Baso % (Auto) 0.1, Absolute Neuts (auto) 9.1 H, Absolute Lymphs (auto) 1.33, Nucleated RBC % 0, Sodium 130 L, Potassium 3.3 L, Chloride 98, Carbon Dioxide 20.0 L, Anion Gap 12, BUN 9, Creatinine 0.88, Estim Creat Clear Calc 36.97, Est GFR (MDRD) Af Amer 79, Est GFR (MDRD) Non-Af 65, BUN/Creatinine Ratio 10.2, Glucose 143 H, Calcium 9.1, Phosphorus 3.5, Magnesium 1.9, Total Bilirubin 1.30 H, AST 15, ALT 22, Alkaline Phosphatase 50, Total Protein 6.6, Albumin 3.7, Globulin 2.9, Albumin/Globulin Ratio 1.3 Micro: Microbiology 04/28/24 23:17 Mucosa - Nose SARS-CoV-2, Influenza & RSV (PCR) - Final Imaging Radiology Impression Abdomen/Pelvis CT 04/28/24 21:02 IMPRESSION: Biliary dilatation with suspected choledocholithiasis, subtle noncalcified stone in the distal CBD. Distended gallbladder with findings of possible cholecystitis. Ultrasound correlation may be helpful. Colonic diverticulosis without evidence of acute diverticulitis. Large hiatal hernia. Electronically Signed: Caryn Gottlieb MD at 22:38 EDT , Gallbladder Ultrasound 04/28/24 22:51 IMPRESSION: Dilated common bile duct. Distal CBD not visualized. Borderline thickened gallbladder wall with no gallstones identified. Minimal pericholecystic fluid. Dilated pancreatic duct. MRI/MRCP may be helpful for further evaluation. Electronically Signed: Caryn Gottlieb MD at 0:21 EDT , Assessment & Plan Assessment/Plan (1) Nausea and vomiting: (2) Choledocholithiasis: (3) Hyperbilirubinemia: (4) Hyponatremia: PLAN: Plan 84-year-old with past medical history of mild hypercholesterolemia mild hypertension presents with intractable nausea and vomiting secondary to choledocholithiasis -CT and ultrasound are consistent with dilated common bile duct and ultrasound shows dilated pancreatic duct -Agree with n.p.o. -Agree with IV fluids with LR at 75 cc/h continuously -She will undergo therapeutic ERCP. She was explained alternatives, risk, benefits including not withstanding bleeding, infection, sepsis, perforation, need for emergent urgent and . She will have an ASA of 3. Charges/Coding Visit Charges Inpatient E&M: 26137 Init Hosp L3
--- NOTE | 2024-04-29 13:24 | OP.CCLET_ITS ---
04/29/2024 Carol Qu[address]ga [address] [place] [address] Re : ERCP procedure for Mya Mendes Dear Dr. Quiroga This procedure was performed on April. My impressions and recommendations are as follows: Impressions : - The entire main bile duct was dilated. - Choledocholithiasis was found. Complete removal was accomplished by biliary sphincterotomy and balloon extraction. - Pancreatic stones were found. - A biliary sphincterotomy was performed. - The biliary tree was swept. - The left main hepatic duct was successfully dilated. - One temporary stent was placed into the common bile duct. - A pancreatic sphincterotomy was performed. - The ventral pancreatic duct was swept. Recommendations : My findings are described in the full procedure note, which is enclosed. If I can be of further assistance, please feel free to contact me at . Sincerely, Jerzy Kelly, 04/29/2024 1:23:43 PM This report has been signed electronically.
--- NOTE | 2024-04-29 13:24 | OP.ERCP_ITS ---
Patient Name: Mya Mendes Procedure Date: 04/29/2024 11:35 AM Date of : 1940 Age: 84 Procedure: ERCP Indications: Bile duct stone(s), Jaundice, Elevated liver enzymes Providers: Jerzy Kelly DO Medicines: Monitored Anesthesia Care Patient Profile: This is an 84 year old female. Refer to note in patient chart for documentation of history and physical. Patient has symptoms of acute right upper quadrant abdominal pain, acute jaundice, acute nausea and acute vomiting. This patient has no history of surgical alteration of the upper digestive tract anatomy. This patient has no history of previous ERCP. Complications: No immediate complications. Procedure: Pre-Anesthesia Assessment: - Prior to the procedure, a History and Physical was performed, and patient medications and allergies were reviewed. The patient is competent. The risks and benefits of the procedure and the sedation options and risks were discussed with the patient. All questions were answered and informed consent was obtained. Patient identification and proposed procedure were verified by the physician in the pre-procedure area. Mental Status Examination: alert and oriented. Airway Examination: normal oropharyngeal airway and neck mobility. Respiratory Examination: clear to auscultation. CV Examination: normal. Prophylactic Antibiotics: The patient does not require prophylactic antibiotics. Prior Anticoagulants: The patient has taken no anticoagulant or antiplatelet agents. ASA Grade Assessment: II - A patient with mild systemic disease. After reviewing the risks and benefits, the patient was deemed in satisfactory condition to undergo the procedure. The anesthesia plan was to use general anesthesia. Immediately prior to administration of medications, the patient was re-assessed for adequacy to receive sedatives. The heart rate, respiratory rate, oxygen saturations, blood pressure, adequacy of pulmonary ventilation, and response to care were monitored throughout the procedure. The physical status of the patient was re-assessed after the procedure. After obtaining informed consent, the scope was passed under direct vision. Throughout the procedure, the patient's blood pressure, pulse, and oxygen saturations were monitored continuously. The Duodenoscope was introduced through the mouth, and advanced to the duodenum and used to inject contrast into the bile duct and ventral pancreatic duct. The ERCP was accomplished without difficulty. The patient tolerated the procedure well. Scope In: 12:13:53 PM Scope Out: 12:38:08 PM Total Procedure Duration Time 0 hours 24 minutes 15 seconds Findings: The support service tech film was normal. The esophagus was successfully intubated under direct vision. The scope was advanced to a normal major papilla in the descending duodenum without detailed examination of the pharynx, larynx and associated structures, and upper GI tract. The upper GI tract was grossly normal. The bile duct was deeply cannulated with the short-nosed traction sphincterotome. Contrast was injected. I personally interpreted the bile duct and pancreatic duct images. There was brisk flow of contrast through the ducts. Image quality was adequate. Contrast extended to the main bile duct. Contrast extended to the hepatic ducts. Contrast extended to the pancreatic duct. Opacification of the main bile duct was successful. The maximum diameter of the ducts was 4 mm. The lower third of the main bile duct contained one stone, which was 6 mm in diameter. The main bile duct was dilated [Etiology]. [Size]. A straight Roadrunner wire was passed into the biliary tree. A 12 mm biliary sphincterotomy was made with a traction (standard) sphincterotome using ERBE electrocautery. There was no post-sphincterotomy bleeding. The biliary tree was swept with a 12 mm balloon starting at the bifurcation. Sludge was swept from the duct. All stones were removed. Dilation of the left main hepatic duct with a 10-11-12 mm balloon (to a maximum balloon size of 12 mm) dilator was successful. One 10 Fr by 7 cm temporary stent was placed 5 cm into the common bile duct. Bile flowed through the stent. The stent was in good position. The ventral pancreatic duct was deeply cannulated with the short-nosed traction sphincterotome. Contrast was injected. Opacification of the entire pancreatic ductal system was successful. The maximum diameter of the ducts was 3 mm. The entire opacified area was normal. A long 0.025 inch Jagwire was passed into the ventral pancreatic duct. A 2 mm ventral pancreatic sphincterotomy was made with a traction (standard) sphincterotome using ERBE electrocautery. There was no post-sphincterotomy bleeding. To find object(s) the ventral pancreatic duct was swept with a 6 mm balloon starting at the pancreatic duct in the body of the pancreas. One stone was removed. All stones remained. Impression: - The entire main bile duct was dilated. - Choledocholithiasis was found. Complete removal was accomplished by biliary sphincterotomy and balloon extraction. - Pancreatic stones were found. - A biliary sphincterotomy was performed. - The biliary tree was swept. - The left main hepatic duct was successfully dilated. - One temporary stent was placed into the common bile duct. - A pancreatic sphincterotomy was performed. - The ventral pancreatic duct was swept. Procedure Code(s): --- Professional --- 44233, Endoscopic retrograde cholangiopancreatography (ERCP); with placement of endoscopic stent into biliary or pancreatic duct, including pre- and post-dilation and guide wire passage, when performed, including sphincterotomy, when performed, each stent 52448, 59, Endoscopic retrograde cholangiopancreatography (ERCP); with trans-endoscopic balloon dilation of biliary/pancreatic duct(s) or of ampulla (sphincteroplasty), including sphincterotomy, when performed, each duct 70655, 51, Endoscopic retrograde cholangiopancreatography (ERCP); with removal of calculi/debris from biliary/pancreatic duct(s) 17177, 59, Endoscopic retrograde cholangiopancreatography (ERCP); with sphincterotomy/papillotomy 67257, 26, Combined endoscopic catheterization of the biliary and pancreatic ductal systems, radiological supervision and interpretation CPT copyright 2021 [employer]. All rights reserved. The codes documented in this report are preliminary and upon junior technical writer review may be revised to meet current compliance requirements. Jerzy Kelly DO 04/29/2024 1:23:43 PM This report has been signed electronically. Number of Addenda: 0 Note Initiated On: 04/29/2024 11:35 AM
[2024-04-29] MEDS: Carvedilol 6.25 MG Tablet PO (13:58)
[2024-04-29] MEDS: Losartan Potassium 100 MG Tablet PO (13:58)
--- NOTE | 2024-04-29 14:09 | DS.PCM_ITS ---
Providers Date of Admission: 04/29/24 Date of Discharge: 04/29/24 Primary Care Physician: Dr. Carol Quiroga MD Consultations 04/29/24 01:50 Consult: Gastroenterology Routine Consulting Provider: [facility] Reason for Consult: Choledocholithiasis EMERGENT Consult: No MD Notified: Yes Date Notified: 04/29/24 Time Notified: 00:50 Method of Notification: ED Physician Initiated Reason For Visit: CHOLEDOCHOLITHIASIS Diagnosis Discharge Diagnosis (1) Nausea and vomiting: Status: Acute Code(s): R11.2 - Nausea with vomiting, unspecified (2) Choledocholithiasis: Status: Acute Code(s): K80.50 - Calculus of bile duct without cholangitis or cholecystitis without obstruction (3) Hyperbilirubinemia: Status: Acute Code(s): E80.6 - Other disorders of bilirubin metabolism (4) Hyponatremia: Status: Acute Code(s): E87.1 - Hypo-osmolality and hyponatremia Plan: DISCHARGE DIAGNOSES: #1. Intractable nausea and emesis secondary to acute choledocholithiasis without evidence of acute cholecystitis with related hyperbilirubinemia, mild #2. Hyponatremia, mild, suspect hypovolemic component given GI losses secondary to #1 #3. Hypokalemia #4. Hyperlipidemia #5. Glaucoma #6. CODE STATUS: DNR-CCA, no intubation. Medications at Discharge Home Medications latanoprost 0.005 % eye drops 1 drp EACH EYE DAILY 01/30/20 atorvastatin 20 mg tablet 20 mg PO QHS 02/29/20 losartan 50 mg tablet 100 mg PO DAILY 02/29/20 diphenhydramine 25 mg-acetaminophen 500 mg tablet (Tylenol PM Extra Strength) 1 tab PO QHS PRN sleep 03/01/20 carvedilol 6.25 mg tablet 6.25 mg PO BID 04/28/24 dorzolamide 22.3 mg-timolol 6.8 mg/mL eye drops 1 drp ophthalmic (eye) Q12H 04/28/24 Hospital Course Operations ERCP Procedures EKG Summary of Care Provided Minutes Spent on Discharge: 35 Hospital Course: The patient is an 84 y/o F w/ PMHx: Hx TIA, HTN, HLD, Hx SBO s/p resection small bowel who presentED to the [facility] ED on 04/29/24 with history of onset significant abdominal pain with associated nausea and emesis upon awakening on the morning prior to 2-day of presentation prompt eventual ED evaluation. CT abdomen and pelvis with contrast with biliary dilatation with suspected choledocholithiasis, subtle noncalcified stone in the distal common bile duct, distended gallbladder with findings of possible cholecystitis, colonic diverticulosis without any evidence of acute diverticulitis, large hiatal hernia. Gallbladder ultrasound with dilated common bile duct, distal CBD not visualized, borderline thickened gallbladder with no gallstones identified, minimal pericholecystic fluid, dilated pancreatic duct. 04/29/24 ERCP with main bile duct dilated, evidence of notable choledocholithiasis with complete removal accomplished by biliary sphincterotomy and balloon extraction, pancreatic stones identified with biliary sphincterotomy performed, biliary tree swept, left main hepatic duct successfully dilated, temporary stent placed into the common bile duct, pancreatic sphincterotomy performed and ventral pancreatic duct swept. Presentation CMP with total bilirubin 1.40, AST/ALT , alk phos 62 with repeat 04/29/2024 with total bilirubin 1.30, AST/ALT , alk phos 50. Reviewed case with general surgery on-call Dr. Hollingsworth who recommended at this time follow-up outpatient in her office however no definitive removal of the gallbladder needs at this time. Admission presentation sodium 131 in the setting of GI losses, patient maintain on hydration with repeat 04/29/2024 sodium 130, encourage continued hydration, repeat CMP outpatient with PCP. Given patient significant clinical improvement quicker timeline then clinically expected and definitive intervention able to be performed on same day of presentation and per patient and family request patient felt clinically appropriate and ready for discharge to home with outpatient follow-up with primary care, gastroenterology and general surgery. Weight / BMI Weight Weight: 124 lb 1.007 oz Body Mass Index (BMI) 22.6 ABG / Lab / Microbiology Data 04/29/24 06:27 04/29/24 06:27 Laboratory: Laboratory Results - last 24 hr 04/28/24 19:45: WBC 8.9, RBC 4.84, Hgb 14.4, Hct 43.0, MCV 88.8, MCH 29.8, MCHC 33.5, RDW Std Deviation 40.6, RDW Coeff of Rose Marie 12.6, Plt Count 261, MPV 11.5, Immature Gran % (Auto) 0.500, Neut % (Auto) 81.7 H, Lymph % (Auto) 13.4 L, [place] % (Auto) 4.0, Eos % (Auto) 0.2, Baso % (Auto) 0.2, Absolute Neuts (auto) 7.2, Absolute Lymphs (auto) 1.19, Nucleated RBC % 0, Sodium 131 L, Potassium 3.8, Chloride 98, Carbon Dioxide 23.0, Anion Gap 10, BUN 10, Creatinine 0.88, Estim Creat Clear Calc 36.97, Est GFR (MDRD) Af Amer 78, Est GFR (MDRD) Non-Af 65, BUN/Creatinine Ratio 11.3, Glucose 158 H, Calcium 9.5, Total Bilirubin 1.40 H, AST 19, ALT 27, Alkaline Phosphatase 62, Total Protein 7.9, Albumin 4.2, Globulin 3.7, Albumin/Globulin Ratio 1.1 04/28/24 21:43: Urine Color Straw, Urine Clarity Clear, Urine pH 8.0, Ur Specific Lamar 1.015, Urine Protein 30 H, Urine Glucose (UA) 100 H, Urine Ketones 5 H, Urine Occult Blood 25 H, Urine Nitrite Negative, Urine Bilirubin Negative, Urine Urobilinogen Normal, Ur Leukocyte Esterase Negative, Urine RBC 0 SEEN, Urine WBC 0 SEEN, Ur Squamous Epith Cells 0 SEEN, Urine Bacteria 1+, Urine Mucus 0 SEEN 04/29/24 06:27: WBC 11.0, RBC 4.51, Hgb 13.4, Hct 39.9, MCV 88.5, MCH 29.7, MCHC 33.6, RDW Std Deviation 40.7, RDW Coeff of Rose Marie 12.6, Plt Count 223, MPV 10.9, Immature Gran % (Auto) 0.500, Neut % (Auto) 82.3 H, Lymph % (Auto) 12.1 L, [place] % (Auto) 5.0, Eos % (Auto) 0.0, Baso % (Auto) 0.1, Absolute Neuts (auto) 9.1 H, Absolute Lymphs (auto) 1.33, Nucleated RBC % 0, Sodium 130 L, Potassium 3.3 L, Chloride 98, Carbon Dioxide 20.0 L, Anion Gap 12, BUN 9, Creatinine 0.88, Estim Creat Clear Calc 36.97, Est GFR (MDRD) Af Amer 79, Est GFR (MDRD) Non-Af 65, BUN/Creatinine Ratio 10.2, Glucose 143 H, Calcium 9.1, Phosphorus 3.5, Magnesium 1.9, Total Bilirubin 1.30 H, AST 15, ALT 22, Alkaline Phosphatase 50, Total Protein 6.6, Albumin 3.7, Globulin 2.9, Albumin/Globulin Ratio 1.3 Microbiology: Microbiology 04/28/24 23:17 Mucosa - Nose SARS-CoV-2, Influenza & RSV (PCR) - Final Radiography Diagnostic Testing: Radiology Impression Abdomen/Pelvis CT 04/28/24 21:02 IMPRESSION: Biliary dilatation with suspected choledocholithiasis, subtle noncalcified stone in the distal CBD. Distended gallbladder with findings of possible cholecystitis. Ultrasound correlation may be helpful. Colonic diverticulosis without evidence of acute diverticulitis. Large hiatal hernia. Electronically Signed: Caryn Gottlieb MD at 22:38 EDT , Gallbladder Ultrasound 04/28/24 22:51 IMPRESSION: Dilated common bile duct. Distal CBD not visualized. Borderline thickened gallbladder wall with no gallstones identified. Minimal pericholecystic fluid. Dilated pancreatic duct. MRI/MRCP may be helpful for further evaluation. Electronically Signed: Caryn Gottlieb MD at 0:21 EDT , D/C Instructions Discharge Diet: Low fat / Low cholesterol May resume sexual activity in: No Restrictions Call your doctor if you observe: Fever of 101 or Higher, Shortness of breath, Dizziness, Swelling in the ankles, Chest pain, Increased palpitations (irregular heartbeat), Calf discomfort and Uncontrolled pain Meaningful Use Info Meaningful Use Meaningful Use Diagnoses (Choose all that apply): None applicable Ischemic Stroke Statin Dosing Therapy Reference: STATIN DOSE THERAPY REFERENCE: * Patients > 75 years receive moderate or high dose statin therapy. * Patients 75 years or YOUNGER should receive HIGH intensity statin dose unless contraindicated. You will be required to document reason for non-treatment if statin daily dose does not meet guidelines. HIGH DOSE STATIN THERAPY DAILY Atorvastatin > than or = to 40 mg Rosuvastatin > than or = to 20 mg Amlodipine + Atorvastatin > than or = to 2.5/40 mg Ezetimibe + Simvastatin 10/80 mg Simvastatin 80mg Discharge Plan Admission Admit Date/Time: 04/29/24 00:48 Primary Reason for Your Visit: Acute choledocholithiasis, Hyponatremia, Hyperbilirubinemia (mild) Attending Provider: Pennie Echols Primary Care Provider: Carol Quiroga Consulting Providers: Sophia Parr Instructions Patient Instructions: ED Gallstones with Biliary Colic Additional Instructions / Restrictions: DISCHARGE REVIEW/PLAN OF CARE: Acute choledocholithiasis with mild hyperbilirubinemia and associated hyponatremia from intractable nausea and emesis likely related: --CT abdomen and pelvis with contrast with biliary dilatation with suspected choledocholithiasis, subtle noncalcified stone in the distal common bile duct, distended gallbladder with findings of possible cholecystitis, colonic diverticulosis without any evidence of acute diverticulitis, large hiatal hernia. --Gallbladder ultrasound with dilated common bile duct, distal CBD not visualized, borderline thickened gallbladder with no gallstones identified, minimal pericholecystic fluid, dilated pancreatic duct. --04/29/24 ERCP with main bile duct dilated, evidence of notable choledocholithiasis with complete removal accomplished by biliary sphincterotomy and balloon extraction, pancreatic stones identified with biliary sphincterotomy performed, biliary tree swept, left main hepatic duct successfully dilated, temporary stent placed into the common bile duct, pancreatic sphincterotomy performed and ventral pancreatic duct swept. --Reviewed case with general surgery on-call Dr. Hollingsworth who recommended at this time follow-up outpatient in her office however no definitive removal of the gallbladder needs at this time. --Please follow-up with gastroenterology per their recommendation given placement of temporary stent for reassessment and further intervention planning. --Given mild low sodium possibly a chronic component but given nausea and emesis complaints concern for GI loss as etiology as well in addition to mildly elevated total bilirubin of 1.4 initially now down to 1.30 please have repeat CMP at follow-up with primary care physician to be cautious. Discharge Orders/Prescriptions Prescriptions: Continued losartan 50 mg tablet 100 mg PO DAILY diphenhydramine-acetaminophen [Tylenol PM Extra Strength] 25-500 mg tablet 1 tab PO QHS PRN (Reason: sleep) atorvastatin 20 mg tablet 20 mg PO QHS latanoprost 1 DROP bottle 1 drp EACH EYE DAILY carvedilol 6.25 mg tablet 6.25 mg PO BID dorzolamide-timolol 22.3-6.8 mg/mL drops 1 drp ophthalmic (eye) Q12H Referrals / Follow Up: Carol Quiroga MD [Primary Care Provider] - (Follow-up in 3-5 days to review admission/plan of care.) Jerzy Kelly DO [Med Staff - Active Staff] - (Please follow-up with Gastroenterology per their preference or within 1-2 weeks following discharge.) Tonia Hollingsworth MD [Med Staff - Active Staff] - (Please follow-up with first open visit for evaluation s/p ERCP with gallbladder disease.) Disposition Disposition (needs filled in before D/C Order can be placed): Home, Self Care Charges/Coding Visit Charges Inpatient E&M: 66169 Disch Hosp >30min (DISCHARGE BILLING 03552, HOWEVER, GIVEN ADMIT AND DISCHARGE SAME DAY RECOMMEND BILLING ADMIT CODE CHANGE TO 94419.)
[2024-04-29] MEDS: Potassium Chloride Oral Tablet 20 MEQ 40 MEQ PO (18:34)
== END 2024-04-29 19:03 | disposition home or self-care (01) | DRG 446 ==
LOC: ED 04-29 01:04 → MS3 04-29 04:33
PROVIDERS: Internal Medicine Gastroenterology; Admitting Provider Internal Medicine; Emergency Provider Emergency Medicine; PCP Family Medicine; Visit Provider Family Medicine
PROC: 0FC98ZZ Extirpation of Matter from Common Bile Duct, Via Natural or Artificial Opening Endoscopic (ICD-10-PCS; CPT 43260; principal; 2024-04-29 11:10)
DX: K80.50 Calculus of bile duct without cholangitis or cholecystitis without obstruction (principal); K86.89 Other specified diseases of pancreas; I10 Essential (primary) hypertension; E78.5 Hyperlipidemia, unspecified; K83.8 Other specified diseases of biliary tract; E87.6 Hypokalemia; K82.8 Other specified diseases of gallbladder; K57.30 Diverticulosis of large intestine without perforation or abscess without bleeding; Z66 Do not resuscitate; H40.9 Unspecified glaucoma; Z86.73 Personal history of transient ischemic attack (TIA), and cerebral infarction without residual deficits
CPT/HCPCS: 36415; 74177; 74330; 76000; 76705; 80053; 81001; 83735; 84100; 85025; 87631; 93005; 99285; Q9967; A4216; J2405

== ENCOUNTER 2024-06-09 08:19 | Inpatient (IN) | payer MEDICARE, SELFPAY ==
[2024-06-09] VITALS (7 sets, daily range): BP systolic 134–177; BP diastolic 64–82; PULSE 52–89; RESP 16–18; TEMP 36.6–37.1; O2SAT 93–98; BMI 22.5
--- NOTE | 2024-06-09 08:32 | EKG12_ITS ---
Test Reason : Blood Pressure : / mmHG Vent. Rate : 057 BPM Atrial Rate : 057 BPM P-R Int : 162 ms QRS Dur : 082 ms QT Int : 466 ms P-R-T Axes : 065 046 079 degrees QTc Int : 453 ms Sinus bradycardia Otherwise normal ECG Confirmed by SAUNDRA STARR MD ([id number]), photograph editor JEFRY LYN ([id number]) on 06/11/2024 6:29:42 AM Referred By: Confirmed By:SAUNDRA STARR MD
--- NOTE | 2024-06-09 08:37 | EDS_ITS ---
HPI HPI - GI History of Present Illness Chief Complaint: Abd Pain Informant: patient Narrative Narrative: Patient is an 84-year-old female with a more recent history of choledocholithiasis status post biliary stent placement, hypertension, hyperlipidemia, TIA and prior intestinal obstruction with small bowel resection once on like anastomosis as well as prior hysterectomy. She is presenting with sudden onset right upper quadrant abdominal pain. It radiates to her back. She is a started couple hours prior to arrival. Has associated nausea. Notes this feels different than when she had choledocholithiasis before that was mostly n ausea and vomiting. Ate dinner normally last night has been feeling well the past few days. Denies any recent change in her bowel movements. States has been passing gas. Denies any black or blood in her stool. Denies any vomiting today. Denies any chest pain or difficulty breathing. No other complaints or concerns reported at this time. [facility] Medical History Choledocholithiasis Glaucoma TIA (transient ischemic attack) (05/2013) Essential (primary) hypertension Hyperlipidemia Screening for intestinal cancer History of intestinal obstruction (~2014) Home Medications ?Medication ?Instructions ?Recorded ?Last Taken ?Type atorvastatin 20 mg tablet 20 mg PO QHS 02/29/20 06/08/24 History diphenhydramine 25 1 tab PO QHS PRN sleep 03/01/20 Unknown History mg-acetaminophen 500 mg tablet (Tylenol PM Extra Strength) carvedilol 6.25 mg tablet 6.25 mg PO BID 04/28/24 06/09/24 History dorzolamide 22.3 mg-timolol 6.8 1 drp ophthalmic (eye) Q12H 04/28/24 06/08/24 History mg/mL eye drops amlodipine 5 mg tablet 5 mg PO DAILY 06/09/24 06/09/24 History losartan 100 mg tablet 100 mg PO DAILY 06/09/24 06/09/24 History Allergy/AdvReac Type Severity Reaction Status Date / Time simvastatin (From Zocor) AdvReac Mild body aches Verified 05/18/24 09:09 Family History Father CVA (cerebral vascular accident) Hypertension Aunt Breast cancer Mother CVA (cerebral vascular accident) Hypertension Surgical History S/P ERCP History of resection of small bowel History of hysterectomy History of colonoscopy Social History household members: spouse housing: house Smoking Status: Never smoker alcohol intake: never substance use type: does not use ROS ROS ED Constitutional Constitutional ED: Denies chills or fever(s) Gastrointestinal Gastrointestinal: Reports abdominal pain and nausea; Denies constipation, diarrhea, melena or vomiting Genitourinary Genitourinary ED: Denies dysuria Musculoskeletal Musculoskeletal: Denies arthralgias or myalgias Integumentary Denies rash Neurologic Neurologic: Denies weakness Hematologic/Lymphatic Hematologic/Lymphatic: Denies easy bleeding or easy bruising EXAM Physical Exam Const Vital Signs: 06/09/24 08:20 06/09/24 10:20 06/09/24 12:00 Temperature 97.8 F Temperature Source Temporal Pulse Rate 52 L 78 89 Respiratory Rate 18 16 18 Blood Pressure 134/78 H 149/67 H 134/66 H Blood Pressure Mean 96 94 88 Pulse Ox 97 98 98 Oxygen Delivery Method Room Air Room Air Room Air Positive well nourished and well developed Constitutional Narrative: Uncomfortable appearing secondary to pain General Appearance ED: well developed, NAD and pallor HEENT Reports moist mucous membranes Eyes PERRL Neck supple Resp normal respiratory effort and clear to auscultation bilaterally Cardio regular rhythm Cardio Narrative: 2+ radial DP pulses Rate: bradycardia GI Inspection: abdominal distention Auscultation: hypoactive bowel sounds Palpation: soft and tender epigastric and RUQ; Negative for guarding Extremity full ROM General Extremety ED: Negative for edema General Extremity: Negative for edema Neuro Sensorium / Orientation: alert, oriented to person, oriented to place and oriented to time Motor Exam: general weakness Psych mental status grossly normal and thought process normal Skin no wounds General Skin Exam: pallor; Negative for jaundice MDM MDM MDM Narrative Medical decision making narrative: Patient is evaluated for acute onset of upper abdominal pain. Patient's vital signs are significant for bradycardia however patient is on carvedilol and took her morning medications. Differential includes choledocholithiasis, acute cholecystitis, pancreatitis, perforated ulcer, small bowel obstruction, referred cardiac pain, ruptured AAA and aortic dissection. Low suspicion for AAA given that patient has normal vital signs, no pulsatile mass. Lower suspicion for dissection given equal pulses in all 4 extremities, normal blood pressure and overall normal neurovascular exam. Patient is given IV fluids, Zofran and morphine. Will reevaluate. Will review lab results to determine whether obtain CT versus ultrasound imaging Patient reevaluated. Pain is much improved. Patient does have uptrending liver enzymes as well as significantly elevated lipase (4361). Her bilirubin is normal at this time. Will obtain a right upper quadrant ultrasound. Ultrasound shows a contracted gallbladder with a mildly thickened gallbladder wall and a slightly dilated pancreatic duct. Case is discussed with Dr. Kelly who is concerned the patient might need her gallbladder removed. He is happy see the patient on consult. I then spoke with surgery on-call, Dr. Alaniz. He will also see the patient. Patient be admitted to the medicine service for further management of possible gallstone pancreatitis. General surgery did request a CT of the abdomen pelvis. This is added on as well. History & Record Review Additional record(s) reviewed:: Prior outpatient record (GI note from 06/02 status post biliary stent/ERCP-improving with downtrending liver enzymes) Lab Data Attestation: I reviewed the patient's lab results. Labs: Laboratory Results - last 24 hr 06/09/24 08:55 WBC 8.4 RBC 4.58 Hgb 13.4 Hct 41.8 MCV 91.3 MCH 29.3 MCHC 32.1 RDW Std Deviation 45.1 H RDW Coeff of Rose [place] 13.3 Plt Count 247 MPV 10.5 Immature Gran % (Auto) 0.400 Neut % (Auto) 75.1 H Lymph % (Auto) 15.9 L [place] % (Auto) 6.3 Eos % (Auto) 1.9 Baso % (Auto) 0.4 Absolute Neuts (auto) 6.3 Absolute Lymphs (auto) 1.34 Nucleated RBC % 0 Sodium 137 Potassium 4.2 Chloride 107 Carbon Dioxide 23.0 Anion Gap 7 BUN 12 Creatinine 1.06 H Est GFR (MDRD) Af Amer 63 Est GFR (MDRD) Non-Af 52 L BUN/Creatinine Ratio 11.3 Glucose 202 H Calcium 9.1 Total Bilirubin 1.30 H Direct Bilirubin 0.47 H AST 124 H ALT 67 H Alkaline Phosphatase 91 Total Protein 6.4 Albumin 3.4 Globulin 3.0 Lipase 4361 H Radiography Diagnostic Testing: Clinical Impression(s) from Imaging Studies Gallbladder Ultrasound 06/09/24 09:49 IMPRESSION: Contracted gallbladder. Mildly thickened gallbladder wall. Small cyst in the right lobe of the liver. Slightly dilated pancreatic duct. Electronically Signed: Lizandro Almanzar MD at 11:39 EDT , Abdomen/Pelvis CT 06/09/24 13:30 IMPRESSION: Status post cholecystectomy. Pneumobilia. A biliary stent is seen within the common bile duct and the distal portion is in the region of the ampulla Vater. Cystocele. No distended fluid-filled small bowel loops in the lower abdomen. Stable increased markings at the left lung base suggestive of atelectasis. Electronically Signed: Lizandro Almanzar MD at 14:38 EDT , ADDENDUM: 06/09/24 1510 IMPRESSION: undefined Rhythm Strip Rhythm Strip: Sinus Rhythm Rate: 57 Ectopy: None EKG Initial EKG: Attestation: I personally reviewed and interpreted this EKG as follows: Interpretation: Sinus Bradycardia Comments: Sinus bradycardia rate of 57 bpm Normal axis Normal intervals Normal ST segments Management Discussion w/another healthcare provider: Hospitalist and [employer] Discharge Plan Dx/Rx/DC Orders Clinical Impression: Gallstone pancreatitis, S/P ERCP Disposition Disposition: Acute Care Hospital [facility] Discharge Date/Time: 06/09/24 15:03
[2024-06-09] MEDS: Morphine 4 MG/ML Syringe IV (08:50)
[2024-06-09] MEDS: 0.9% Normal Saline (1000mL) 1,000 ML 1000 ML IV (08:50)
[2024-06-09] MEDS: Ondansetron 4 MG/2 ML Vial IV (08:50)
[2024-06-09 09:04] LABS: Absolute Lymphocyte Count 1.34 X10^3/uL (0.83-4.51); Absolute Neutrophil Count 6.3 X10^3/uL (2.0-7.7); Basophil# 0.03 X10^3/uL; Basophil% 0.4 % (0-1); Eosinophil# 0.16 X10^3/uL; Eosinophils% 1.9 % (0-5); Hematocrit 41.8 % (37-47); Hemoglobin 13.4 g/dL (12.0-15.0); Lymphocyte # 1.34 X10^3/ul (0.83-4.51); Lymphocyte % 15.9 % (19-41); Mean Corp Hgb Conc 32.1 g/dL (32-36); Mean Corpuscular Hgb 29.3 pg (27.0-32.0); Mean Corpuscular Volume 91.3 fL (81-99); Mean Platelet Vol. 10.5 fl (6.2-12.0); Monocyte# 0.53 X10^3/uL; Monocyte% 6.3 % (0-10); NRBC Flagged by Analyzer 0 % (0-5); Neutrophil # 6.33 X10^3/uL (2.7-7.7); Neutrophil % 75.1 % (47-70); Platelet Count 247 K/mm3 (150-450); RBC Distribution Width CV 13.3 % (11.6-14.6); RBC Distribution Width SD 45.1 fl (35.1-43.9); Red Blood Count 4.58 M/mm3 (4.2-5.4); White Blood Count 8.4 K/mm3 (4.4-11.0)
[2024-06-09 09:48] LABS: AST(SGOT) 124 U/L (15-37); Alanine Aminotransfer ALT/SGPT 67 U/L (13-56); Albumin, Serum 3.4 g/dL (3.2-5.0); Alkaline Phosphatase 91 U/L (45-117); Anion Gap 7 (5-15); BUN 12 mg/dL (7-18); BUN/Creat Ratio 11.3 RATIO (10-20); Bilirubin, Direct 0.47 mg/dL (0.00-0.30); Calcium,Total 9.1 mg/dL (8.5-10.1); Chloride 107 mmol/L (98-107); Creatinine, Serum 1.06 mg/dL (0.55-1.02); EST Glomerular Filtration Rate 52 mL/min (>60); Est Glom Filt Rate - Afr Amer 63 mL/min (>60); Glucose 202 mg/dL (74-106); Lipase 4361 U/L (13-75); Potassium 4.2 mmol/L (3.5-5.1); Protein, Total 6.4 g/dL (6.4-8.2); Sodium Level 137 mmol/L (136-145)
--- NOTE | 2024-06-09 09:49 | US_ITS ---
STUDY: ABDOMINAL ULTRASOUND - RIGHT UPPER QUADRANT REASON FOR VISIT: Female, 84 years old acute RUQ pain, pancreatitis, s/p biliary stent TECHNIQUE: Ultrasound evaluation of the right upper quadrant was performed with real-time and static mace-scale imaging. TECHNICAL QUALITY: Adequate. COMPARISON: Comparison is made with prior study April 28, 2024. FINDINGS: Liver: The liver measures 14.5 cm. There is normal echogenicity of the liver. The bile ducts are within normal limits. There is hepatic color flow. The direction of portal flow is hepatopetal. There is a 1.7 cm x 1.6 cm x 1 cm cyst in the right lobe of the liver. Gallbladder: There is a contracted gallbladder. The gallbladder wall is slightly thickened and measures 5 mm. There is a negative sonographic Medrano''s sign. There is no pericholecystic fluid. There are no gallstones. Common Bile Duct (C.B.D.): The common bile duct measures 7 mm. Pancreas: Normal size of the head, body and tail of the pancreas. There is normal echogenicity of the pancreas. There is no demonstrated pancreatic mass or cyst. Dilated pancreatic duct measuring 4 mm. Right Kidney: Normal size of the right kidney. The right kidney measures 9.9 cm x 6.1 cm x 6.3 cm. Normal renal cortex. The right cortex measures 1.6 cm. There is no demonstrated renal mass or cyst. There is no right hydronephrosis. I suspect a 5 mm nonobstructive intracalyceal calculus. US/Gallbladder IMPRESSION: Contracted gallbladder. Mildly thickened gallbladder wall. Small cyst in the right lobe of the liver. Slightly dilated pancreatic duct. Electronically Signed: Lizandro Almanzar MD at 11:39 EDT ,
[2024-06-09] MEDS: 0.9% Normal Saline (1000mL) 1,000 ML 150 ML IV ×3 (11:21→21:32)
--- NOTE | 2024-06-09 13:30 | CT_ITS ---
STUDY: CT ABDOMEN AND PELVIS WITH CONTRAST REASON FOR EXAM: Female, 84 years old. Acute pancreatitis. Severe epigastric abdominal pain. RADIATION DOSAGE (If Supplied By Facility): CTDIvol = ( 13.66 ) mGy, DLP = ( 313.46 ) mGycm TECHNIQUE: Transaxial images were obtained from the dome of the diaphragm to the symphysis pubis without oral contrast. IV 100mL [id number]-300 was administered. Sagittal and coronal images were reconstructed. Individualized dose optimization techniques were used for this CT. COMPARISON: Comparison is made with prior study April 28, 2024. FINDINGS: Stable increased markings at the left lung base suggestive of atelectasis. The visualized portions of the heart are within normal limits. There is decreased attenuation of the liver consistent with steatosis. The patient is status post cholecystectomy. There is evidence of a pneumobilia most likely secondary to prior cholecystectomy and the common bile duct exploration. A biliary stent is seen within the common bile duct. The distal tip is in the second portion of the duodenum. Normal spleen. Normal pancreas. Normal bilateral adrenal glands. Normal right kidney. Normal left kidney. Stable appearance of the large hiatal hernia with approximately two thirds of the proximal stomach within the left lower chest. Mild degree of the fluid-filled small bowel loops in the lower abdomen although no evidence of obstruction at this time. There are multiple colonic diverticula consistent with diverticulosis. There is non-visualization of the appendix. Normal abdominal aorta. Normal inferior vena cava. Normal retroperitoneum. Low-lying urinary bladder suggestive of a cystocele. There is absence of the uterus consistent with a prior hysterectomy. Normal abdominal wall. There are diffuse degenerative changes of the visualized lumbar spine. Stable minimal anterolisthesis of L4 on L5. CT/Abdomen/Pelvis W IV Cont ONLY IMPRESSION: Status post cholecystectomy. Pneumobilia. A biliary stent is seen within the common bile duct and the distal portion is in the region of the ampulla Vater. Cystocele. No distended fluid-filled small bowel loops in the lower abdomen. Stable increased markings at the left lung base suggestive of atelectasis. Electronically Signed: Lizandro Almanzar MD at 14:38 EDT ,
--- NOTE | 2024-06-09 13:36 | PCM.HP.STD ---
HPI - General General Date of Admission: 06/09/24 Date of Service: 06/09/24 Chief Complaint: Abdominal pain HPI Narrative ERIK MURCIA, is a 84 F who presented to [facility] ED on 06/09/2024 with recurrent abdominal pain. Patient was recently hospitalized here at the end of April with choledocholithiasis. Had ERCP done with Dr. Kelly with stone removal and stent placement into a distal common bile duct biliary stricture. Dr. Hollingsworth saw patient in the office on 05/18 and noted her imaging showed no further gallstones in the gallbladder so she did not recommend cholecystectomy. Patient presented today with acute onset upper abdominal pain. Labs notable for very elevated lipase of 4361 and mildly uptrending LFTs. Gallbladder ultrasound showed mildly thickened gallbladder wall and slightly dilated pancreatic duct. Common bile duct was not dilated. Dr. Ruggiero discussed with both Dr. Kelly and Dr. Alaniz. CT abdomen pelvis will be obtained for further evaluation. Tentative plan is for cholecystectomy during this hospitalization plus or minus repeat ERCP. Hospitalist was contacted for admission. I saw the patient at bedside in the ED, daughter and son-in-law were present. Patient had received a dose of IV morphine about an hour before my encounter with her and was feeling much better from a pain standpoint. She was sitting up comfortably in bed, conversing normally, in no acute distress. She denied any fevers or chills. Had no other acute concerns at this time. [facility] Medical History Choledocholithiasis Glaucoma TIA (transient ischemic attack) (05/2013) Essential (primary) hypertension Hyperlipidemia Screening for intestinal cancer History of intestinal obstruction (~2014) Home Medications ?Medication ?Instructions ?Recorded ?Last Taken ?Type atorvastatin 20 mg tablet 20 mg PO QHS 02/29/20 06/08/24 History diphenhydramine 25 1 tab PO QHS PRN sleep 03/01/20 Unknown History mg-acetaminophen 500 mg tablet (Tylenol PM Extra Strength) carvedilol 6.25 mg tablet 6.25 mg PO BID 04/28/24 06/09/24 History dorzolamide 22.3 mg-timolol 6.8 1 drp ophthalmic (eye) Q12H 04/28/24 06/08/24 History mg/mL eye drops amlodipine 5 mg tablet 5 mg PO DAILY 06/09/24 06/09/24 History losartan 100 mg tablet 100 mg PO DAILY 06/09/24 06/09/24 History Allergy/AdvReac Type Severity Reaction Status Date / Time simvastatin (From Zocor) AdvReac Mild body aches Verified 05/18/24 09:09 Family History Father CVA (cerebral vascular accident) Hypertension Aunt Breast cancer Mother CVA (cerebral vascular accident) Hypertension Surgical History S/P ERCP History of resection of small bowel History of hysterectomy History of colonoscopy Social History household members: spouse housing: house Smoking Status: Never smoker alcohol intake: never substance use type: does not use ROS Constitutional Constitutional: Denies chills, fatigue, fever(s) or weakness Cardiovascular Cardiovascular: Denies chest pain Respiratory/Chest Respiratory/Chest: Denies shortness of breath at rest Gastrointestinal Gastrointestinal: Reports abdominal pain and nausea; Denies constipation, diarrhea or vomiting Genitourinary Genitourinary: Denies dysuria Musculoskeletal Musculoskeletal: Denies back pain Vital Signs Vital Signs Vital Signs: 06/09/24 08:20 06/09/24 10:20 06/09/24 12:00 Temperature 97.8 F Temperature Source Temporal Pulse Rate 52 L 78 89 Respiratory Rate 18 16 18 Blood Pressure 134/78 H 149/67 H 134/66 H Blood Pressure Mean 96 94 88 Pulse Ox 97 98 98 Oxygen Delivery Method Room Air Room Air Room Air Physical Exam Const alert, oriented x3, no apparent distress and average body habitus Constitutional Narrative: Pleasant elderly female, appears younger than stated age, sitting up comfortably in bed, conversing normally, in no acute distress. General Appearance: cooperative and comfortable HEENT normocephalic, head/scalp atraumatic, hearing grossly normal bilaterally, nasal mucous membranes and turbinates normal and moist oral mucous membranes Eyes PERRL, EOMs intact bilaterally and conjunctivae normal Neck full ROM Chest inspection of chest normal Resp normal respiratory effort, normal air movement, no use of accessory muscles and clear to auscultation bilaterally Cardio regular rate, regular rhythm, no murmurs and peripheral pulses 2+ throughout GI GI Narrative: Mild tenderness to palpation in epigastric area. Abdomen otherwise soft and nondistended with normal bowel sounds. Back/Spine normal ROM Extremity normal to inspection, full ROM and no pedal edema Skin no rashes or lesions noted Neuro moves all extremities and no focal motor deficits Speech: speech normal Psych mental status grossly normal Results Lab / Micro Data 06/09/24 08:55 06/09/24 08:55 Labs: Laboratory Results - last 24 hr 06/09/24 08:55: WBC 8.4, RBC 4.58, Hgb 13.4, Hct 41.8, MCV 91.3, MCH 29.3, MCHC 32.1, RDW Std Deviation 45.1 H, RDW Coeff of Rose Marie 13.3, Plt Count 247, MPV 10.5, Immature Gran % (Auto) 0.400, Neut % (Auto) 75.1 H, Lymph % (Auto) 15.9 L, [place] % (Auto) 6.3, Eos % (Auto) 1.9, Baso % (Auto) 0.4, Absolute Neuts (auto) 6.3, Absolute Lymphs (auto) 1.34, Nucleated RBC % 0, Sodium 137, Potassium 4.2, Chloride 107, Carbon Dioxide 23.0, Anion Gap 7, BUN 12, Creatinine 1.06 H, Est GFR (MDRD) Af Amer 63, Est GFR (MDRD) Non-Af 52 L, BUN/Creatinine Ratio 11.3, Glucose 202 H, Calcium 9.1, Total Bilirubin 1.30 H, Direct Bilirubin 0.47 H, AST 124 H, ALT 67 H, Alkaline Phosphatase 91, Total Protein 6.4, Albumin 3.4, Globulin 3.0, Lipase 4361 H Rhythm Strip Rhythm Strip: Sinus Rhythm Rate: 57 Ectopy: None Imaging Radiology Impression Gallbladder Ultrasound 06/09/24 09:49 IMPRESSION: Contracted gallbladder. Mildly thickened gallbladder wall. Small cyst in the right lobe of the liver. Slightly dilated pancreatic duct. Electronically Signed: Lizandro Almanzar MD at 11:39 EDT , Assessment & Plan Assessment/Plan (1) Gallstone pancreatitis: PLAN: Plan Patient is an 84-year-old female who presented [facility] ED on 06/09/2024 with recurrent abdominal pain. 1. Suspected gallstone pancreatitis ? Admit under inpatient status to [facility]. GI and general surgery consulted. Recent admission for choledocholithiasis with ERCP and stent placement. This presentation seems most consistent with gallstone pancreatitis. CT abdomen pelvis ordered by surgery for further evaluation. Tentatively planning for cholecystectomy on 06/10 and may need repeat ERCP with Dr. Kelly at that time as well. Will keep n.p.o. at this time. Continue LR 125 cc/h for maintenance IV fluids. Will empirically start IV Zosyn for now. Tylenol, oxycodone and IV Dilaudid as needed ordered for pain control. Follow-up a.m. CMP. 2. Mild creatinine elevation ? Creatinine 1.06 on admit, baseline around 0.8. Presumed prerenal due to blood depletion from pancreatitis. Follow-up a.m. BMP after IV fluid resuscitation and monitor urine output. 3. Hypertension ? Mildly hypertensive to 130s to 140s systolic in ED. Will continue home Coreg and amlodipine. Will hold home losartan for now, restart when able. 4. Hyperlipidemia ? Will hold home atorvastatin for now. 5. Glaucoma ? Continue home eyedrops. DVT prophylaxis: Lovenox CODE STATUS: DNR CCA, DNI Expected disposition: Home, 2 to 3 days Total clinical time spent by myself addressing the patient's medical issues, reviewing all the data, and collaborating with patient's care team: 55 minutes. Charges/Coding Visit Charges Inpatient E&M: 28286 Init Hosp L2
--- NOTE | 2024-06-09 13:50 | NURSING ---
MED SURG MOSTELLER GALLSTONE PANCREATITIS
--- NOTE | 2024-06-09 16:32 | CON.PCM.SX_ITS ---
Assessment & Plan Assessment/Plan (1) Gallstone pancreatitis: (2) Choledocholithiasis: (3) S/P ERCP: PLAN: Plan Patient 84-year-old female who presents after a acute onset epigastric abdominal discomfort that appears due to development of acute gallstone pancreatitis. This diagnosis is made less than 2 months following an admission for choledocholithiasis that culminated in ERCP with stone extraction and stent placement. In fact, patient had met with gastroenterology last week to discuss repeat ERCP and stent removal. She was previously evaluated for cholecystectomy but decision had been made to forego gallbladder removal since no stones were seen on patient's ultrasound imaging. Once again, patient's ultrasound shows no evidence of gallstones, however, with a re? presentation for biliary obstruction?related pathology I now recommend proceeding with laparoscopic cholecystectomy. This rationale is discussed with patient and her family at length. I also discussed her case with Dr. Kelly of gastroenterology who provided his agreement. Patient appears to be otherwise healthy for her advanced age and is an acceptable surgical candidate. Also fortunate, patient appears to have a mild case of pancreatitis as her abdominal discomfort is not reproducible on my exam just a few hours into her hospital presentation. This hopefully predicts less peritoneal inflammation and thereby less risk with cholecystectomy. In addition to cholecystectomy I will plan for intraoperative cholangiography to assess patency of patient's common bile duct stent. The procedure and its risks as well as post procedure expectations were reviewed with patient and her family. They are in agreement to proceed as recommended. Recommend conservative treatment for her pancreatitis with n.p.o. status and moderately aggressive IV fluid resuscitation then n.p.o. past midnight for anticipated surgery tomorrow. Elias Alaniz MD General Surgery Endocrine Surgery Pager: [facility] [address] [place] [address], [address] [place] [address] Office: [phone] HPI Consult Data Date of Consult: 06/09/24 HPI Narrative Reason for Consultation: Gallstone pancreatitis HPI Narrative: ERIK MURCIA, is a 84 F who presents to [facility] with her daughter and after experiencing acute onset severe pain going across her upper abdomen approximately 2 hours prior to presentation. She denies any associated nausea or vomiting. She confesses that she had not been feeling good and describes feeling fatigued and slightly dizzy or just generally blah. She does distinguish this from a recent prior presentation that led to an admission at the end of April for a ultimate diagnosis of choledocholithiasis which culminated in ERCP with stenting by Dr. Kelly of gastroenterology. Patient's ER workup is notable for transaminitis, mild hyperbilirubinemia, and lipase of greater than 4300. Ultrasound of the abdomen was performed first showing evidence of a mildly contracted gallbladder with mild gallbladder wall thickening and a thickness of 5 mm. Notably no stones were seen within the gallbladder. I requested follow-up CT imaging which showed evidence of pneumobilia and confirmed the same appearance of the patient's gallbladder. Pancreas was evaluated and felt to be normal in appearance. Following patient's diagnosed with choledocholithiasis she met with general surgery (Dr. Hollingsworth) as an outpatient and a conversation was held around performing cholecystectomy but was ultimately decided against on the account of no stone showing in patient's ultrasound. [facility] Medical History Choledocholithiasis Glaucoma TIA (transient ischemic attack) (05/2013) Essential (primary) hypertension Hyperlipidemia Screening for intestinal cancer History of intestinal obstruction (~2014) Home Medications ?Medication ?Instructions ?Recorded ?Last Taken ?Type atorvastatin 20 mg tablet 20 mg PO QHS 02/29/20 06/08/24 History diphenhydramine 25 1 tab PO QHS PRN sleep 03/01/20 Unknown History mg-acetaminophen 500 mg tablet (Tylenol PM Extra Strength) carvedilol 6.25 mg tablet 6.25 mg PO BID 04/28/24 06/09/24 History dorzolamide 22.3 mg-timolol 6.8 1 drp ophthalmic (eye) Q12H 04/28/24 06/08/24 History mg/mL eye drops amlodipine 5 mg tablet 5 mg PO DAILY 06/09/24 06/09/24 History losartan 100 mg tablet 100 mg PO DAILY 06/09/24 06/09/24 History Allergy/AdvReac Type Severity Reaction Status Date / Time simvastatin (From Zocor) AdvReac Mild body aches Verified 05/18/24 09:09 Family History Father CVA (cerebral vascular accident) Hypertension Aunt Breast cancer Mother CVA (cerebral vascular accident) Hypertension Surgical History S/P ERCP History of resection of small bowel History of hysterectomy History of colonoscopy Social History household members: spouse housing: house Smoking Status: Never smoker alcohol intake: never substance use type: does not use Physical Exam Const alert, oriented x3, no apparent distress, healthy appearing and well nourished General Appearance: cooperative and well developed Resp normal respiratory effort GI GI Narrative: Well-healed periumbilical incision, additional well-healed port scar, nondistended, soft, nontender to palpation x 4 quadrants in the epigastrium. Negative Medrano sign. Lab / Micro Data 06/09/24 08:55 06/09/24 08:55 Labs: Laboratory Results - last 24 hr 06/09/24 08:55: WBC 8.4, RBC 4.58, Hgb 13.4, Hct 41.8, MCV 91.3, MCH 29.3, MCHC 32.1, RDW Std Deviation 45.1 H, RDW Coeff of Rose Marie 13.3, Plt Count 247, MPV 10.5, Immature Gran % (Auto) 0.400, Neut % (Auto) 75.1 H, Lymph % (Auto) 15.9 L, Sebastian % (Auto) 6.3, Eos % (Auto) 1.9, Baso % (Auto) 0.4, Absolute Neuts (auto) 6.3, Absolute Lymphs (auto) 1.34, Nucleated RBC % 0, Sodium 137, Potassium 4.2, Chloride 107, Carbon Dioxide 23.0, Anion Gap 7, BUN 12, Creatinine 1.06 H, Est GFR (MDRD) Af Amer 63, Est GFR (MDRD) Non-Af 52 L, BUN/Creatinine Ratio 11.3, G lucose 202 H, Calcium 9.1, Total Bilirubin 1.30 H, Direct Bilirubin 0.47 H, AST 124 H, ALT 67 H, Alkaline Phosphatase 91, Total Protein 6.4, Albumin 3.4, Globulin 3.0, Lipase 4361 H Rhythm Strip Rhythm Strip: Sinus Rhythm Rate: 57 Ectopy: None Imaging Radiology Impression Gallbladder Ultrasound 06/09/24 09:49 IMPRESSION: Contracted gallbladder. Mildly thickened gallbladder wall. Small cyst in the right lobe of the liver. Slightly dilated pancreatic duct. Electronically Signed: Lizandro Almanzar MD at 11:39 EDT , Abdomen/Pelvis CT 06/09/24 13:30 IMPRESSION: Status post cholecystectomy. Pneumobilia. A biliary stent is seen within the common bile duct and the distal portion is in the region of the ampulla Vater. Cystocele. No distended fluid-filled small bowel loops in the lower abdomen. Stable increased markings at the left lung base suggestive of atelectasis. Electronically Signed: Lizandro Almanzar MD at 14:38 EDT , ADDENDUM: 06/09/24 1510 IMPRESSION: undefined Charges/Coding Visit Charges Inpatient E&M: 81765 Init Hosp L2
--- NOTE | 2024-06-09 16:46 | CON.PCM.GI_ITS ---
HPI Consult Data Date of Consult: 06/09/24 HPI Narrative Reason for Consultation: Gallstone pancreatitis HPI Narrative: ERIK MURCIA, is a 84-year-old female with a more recent history of choledocholithiasis status post biliary stent placement, hypertension, hyperlipidemia, TIA and prior intestinal obstruction with small bowel resection once on like anastomosis as well as prior hysterectomy. She is presenting with sudden onset right upper quadrant abdominal pain. It radiates to her back. She is a started couple hours prior to arrival. Has associated nausea. Notes this feels different than when she had choledocholithiasis before that was mostly nausea and vomiting. She ate dinner normally last night has been feeling well the past few days. Denies any recent change in her bowel movements. States has been passing gas. Denies any black or blood in her stool. Denies any vomiting today. Denies any chest pain or difficulty breathing. No other complaints or concerns reported at this time. [facility] Medical History Choledocholithiasis Glaucoma TIA (transient ischemic attack) (05/2013) Essential (primary) hypertension Hyperlipidemia Screening for intestinal cancer History of intestinal obstruction (~2014) Home Medications ?Medication ?Instructions ?Recorded ?Last Taken ?Type atorvastatin 20 mg tablet 20 mg PO QHS 02/29/20 06/08/24 History diphenhydramine 25 1 tab PO QHS PRN sleep 03/01/20 Unknown History mg-acetaminophen 500 mg tablet (Tylenol PM Extra Strength) carvedilol 6.25 mg tablet 6.25 mg PO BID 04/28/24 06/09/24 History dorzolamide 22.3 mg-timolol 6.8 1 drp ophthalmic (eye) Q12H 04/28/24 06/08/24 History mg/mL eye drops amlodipine 5 mg tablet 5 mg PO DAILY 06/09/24 06/09/24 History losartan 100 mg tablet 100 mg PO DAILY 06/09/24 06/09/24 History Allergy/AdvReac Type Severity Reaction Status Date / Time simvastatin (From Zocor) AdvReac Mild body aches Verified 05/18/24 09:09 Family History Father CVA (cerebral vascular accident) Hypertension Aunt Breast cancer Mother CVA (cerebral vascular accident) Hypertension Surgical History S/P ERCP History of resection of small bowel History of hysterectomy History of colonoscopy Social History household members: spouse housing: house Smoking Status: Never smoker alcohol intake: never substance use type: does not use Physical Exam Const alert, oriented x3, no apparent distress and average body habitus Constitutional Narrative: Pleasant elderly female, appears younger than stated age, sitting up comfortably in bed, conversing normally, in no acute distress. General Appearance: cooperative and comfortable HEENT normocephalic, head/scalp atraumatic, hearing grossly normal bilaterally, nasal mucous membranes and turbinates normal and moist oral mucous membranes Eyes PERRL, EOMs intact bilaterally and conjunctivae normal Neck full ROM Chest inspection of chest normal Resp normal respiratory effort, normal air movement, no use of accessory muscles and clear to auscultation bilaterally Cardio regular rate, regular rhythm, no murmurs and peripheral pulses 2+ throughout GI GI Narrative: Mild tenderness to palpation in epigastric area. Abdomen otherwise soft and nondistended with normal bowel sounds. Back/Spine normal ROM Extremity normal to inspection, full ROM and no pedal edema Skin no rashes or lesions noted Neuro moves all extremities and no focal motor deficits Speech: speech normal Psych mental status grossly normal Lab / Micro Data 06/09/24 08:55 06/09/24 08:55 Labs: Laboratory Results - last 24 hr 06/09/24 08:55: WBC 8.4, RBC 4.58, Hgb 13.4, Hct 41.8, MCV 91.3, MCH 29.3, MCHC 32.1, RDW Std Deviation 45.1 H, RDW Coeff of Rose Marie 13.3, Plt Count 247, MPV 10.5, Immature Gran % (Auto) 0.400, Neut % (Auto) 75.1 H, Lymph % (Auto) 15.9 L, [place] % (Auto) 6.3, Eos % (Auto) 1.9, Baso % (Auto) 0.4, Absolute Neuts (auto) 6.3, Absolute Lymphs (auto) 1.34, Nucleated RBC % 0, Sodium 137, Potassium 4.2, Chloride 107, Carbon Dioxide 23.0, Anion Gap 7, BUN 12, Creatinine 1.06 H, Est GFR (MDRD) Af Amer 63, Est GFR (MDRD) Non-Af 52 L, BUN/Creatinine Ratio 11.3, G lucose 202 H, Calcium 9.1, Total Bilirubin 1.30 H, Direct Bilirubin 0.47 H, AST 124 H, ALT 67 H, Alkaline Phosphatase 91, Total Protein 6.4, Albumin 3.4, Globulin 3.0, Lipase 4361 H Rhythm Strip Rhythm Strip: Sinus Rhythm Rate: 57 Ectopy: None Imaging Radiology Impression Gallbladder Ultrasound 06/09/24 09:49 IMPRESSION: Contracted gallbladder. Mildly thickened gallbladder wall. Small cyst in the right lobe of the liver. Slightly dilated pancreatic duct. Electronically Signed: Lizandro Almanzar MD at 11:39 EDT , Abdomen/Pelvis CT 06/09/24 13:30 IMPRESSION: Status post cholecystectomy. Pneumobilia. A biliary stent is seen within the common bile duct and the distal portion is in the region of the ampulla Vater. Cystocele. No distended fluid-filled small bowel loops in the lower abdomen. Stable increased markings at the left lung base suggestive of atelectasis. Electronically Signed: Lizandro Almanzar MD at 14:38 EDT , ADDENDUM: 06/09/24 1510 IMPRESSION: undefined Assessment & Plan Assessment/Plan (1) Gallstone pancreatitis: PLAN: Plan Patient is an 84-year-old female who presented [facility] ED on 06/09/2024 with recurrent abdominal pain. Suspected gallstone pancreatitis ? She has a recent admission for choledocholithiasis with ERCP and stent placement. This presentation seems most consistent with gallstone pancreatitis. CT abdomen pelvis ordered by surgery for further evaluation. Tentatively planning for cholecystectomy on 06/10 and may need repeat ERCP. Continue LR 125 cc/h for maintenance IV fluids. Will empirically start IV Zosyn for now. Tylenol, oxycodone and IV Dilaudid as needed ordered for pain control. Follow- up a.m. CMP. Mild creatinine elevation ? Creatinine 1.06 on admit, baseline around 0.8. Presumed prerenal due to blood depletion from pancreatitis. Follow-up a.m. BMP after IV fluid resuscitation and monitor urine output. Charges/Coding Visit Charges Inpatient E&M: 90069 Init Hosp L3
[2024-06-09] MEDS: Piperacil/Tazobactam 3.375 GM in 0.9% Normal Saline (50mL MB+) 50 ML IV ×2 (17:15→21:33)
[2024-06-09] MEDS: Dorzolamide HCL/Timolol 10 ml Bottle 1 DRP OPHTHALMIC (21:34)
[2024-06-09] MEDS: MELATONIN 3 MG TABLET PO (21:36)
[2024-06-09] MEDS: Carvedilol 6.25 MG Tablet PO (21:39)
[2024-06-10] VITALS (16 sets, daily range): BP systolic 137–177; BP diastolic 56–85; PULSE 67–107; RESP 14–18; TEMP 36.3–36.7; O2SAT 92–98; BMI 22.5
[2024-06-10] MEDS: 0.9% Normal Saline (1000mL) 1,000 ML 150 ML IV (03:36)
[2024-06-10] MEDS: Piperacil/Tazobactam 3.375 GM in 0.9% Normal Saline (50mL MB+) 50 ML IV ×3 (06:03→21:12)
[2024-06-10] MEDS: Acetaminophen 325 MG Tablet 650 MG PO (06:12)
[2024-06-10 06:49] LABS: Hematocrit 36.7 % (37-47); Mean Corp Hgb Conc 32.7 g/dL (32-36); Mean Corpuscular Hgb 29.9 pg (27.0-32.0); Mean Corpuscular Volume 91.5 fL (81-99); Mean Platelet Vol. 10.7 fl (6.2-12.0); Platelet Count 192 K/mm3 (150-450); RBC Distribution Width CV 13.5 % (11.6-14.6); RBC Distribution Width SD 45.8 fl (35.1-43.9); Red Blood Count 4.01 M/mm3 (4.2-5.4)
[2024-06-10 07:24] LABS: ALB/GLOB Ratio 1.1 RATIO (0.9-2.4); AST(SGOT) 97 U/L (15-37); Alanine Aminotransfer ALT/SGPT 147 U/L (13-56); Alkaline Phosphatase 102 U/L (45-117); Anion Gap 5 (5-15); BUN 8 mg/dL (7-18); BUN/Creat Ratio 8.7 RATIO (10-20); Calcium,Total 8.3 mg/dL (8.5-10.1); Chloride 113 mmol/L (98-107); Creatinine, Serum 0.92 mg/dL (0.55-1.02); EST Glomerular Filtration Rate 62 mL/min (>60); Est Glom Filt Rate - Afr Amer 75 mL/min (>60); Estimated Creatinine Clearance 35.36 ml/min; Globulin 2.8 g/dL (2.2-4.2); Glucose 97 mg/dL (74-106); Potassium 4.2 mmol/L (3.5-5.1); Protein, Total 5.8 g/dL (6.4-8.2); Sodium Level 140 mmol/L (136-145)
--- NOTE | 2024-06-10 07:40 | PCM.PN.SRG ---
Subjective Subjective Patient seen and examined during AM rounds. She is found resting in bed. She declares that she has had no recurrence of her pain and finds it funny that it seems to have stopped just as quickly as it started. She is eager to be underway for surgery as she does not want to spend a long time in the hospital. She denies any further questions Objective Data Objective Data Vital Signs: Vital Signs Temp Pulse Resp BP Pulse Ox O2 Del Method 97.8 F 72 17 140/56 H 92 Room Air 06/10/24 03:28 06/10/24 03:28 06/10/24 03:28 06/10/24 03:28 06/10/24 03:28 06/10/24 07:27 Oxygen Delivery Method Room Air Weight: 123 lb 0.287 oz Body Mass Index (BMI) 22.5 Intake & Output: Intake and Output for Last 24 Hours 06/08/24 06/09/24 06/10/24 23:59 23:59 23:59 Intake Total 2432.5 / 2432.5 960 / 960 Balance 2432.5 / 2432.5 960 / 960 Lab / Micro Data 06/10/24 06:34 06/10/24 06:34 Labs: Laboratory Results - last 24 hr 06/09/24 08:55: WBC 8.4, RBC 4.58, Hgb 13.4, Hct 41.8, MCV 91.3, MCH 29.3, MCHC 32.1, RDW Std Deviation 45.1 H, RDW Coeff of Rose Marie 13.3, Plt Count 247, MPV 10.5, Immature Gran % (Auto) 0.400, Neut % (Auto) 75.1 H, Lymph % (Auto) 15.9 L, Faulkner % (Auto) 6.3, Eos % (Auto) 1.9, Baso % (Auto) 0.4, Absolute Neuts (auto) 6.3, Absolute Lymphs (auto) 1.34, Nucleated RBC % 0, Sodium 137, Potassium 4.2, Chloride 107, Carbon Dioxide 23.0, Anion Gap 7, BUN 12, Creatinine 1.06 H, Est GFR (MDRD) Af Amer 63, Est GFR (MDRD) Non-Af 52 L, BUN/Creatinine Ratio 11.3, Glucose 202 H, Calcium 9.1, Total Bilirubin 1.30 H, Direct Bilirubin 0.47 H, AST 124 H, ALT 67 H, Alkaline Phosphatase 91, Total Protein 6.4, Albumin 3.4, Globulin 3.0, Lipase 4361 H 06/10/24 06:34: WBC 8.0, RBC 4.01 L, Hgb 12.0, Hct 36.7 L, MCV 91.5, MCH 29.9, MCHC 32.7, RDW Std Deviation 45.8 H, RDW Coeff of Rose Marie 13.5, Plt Count 192, MPV 10.7, Sodium 140, Potassium 4.2, Chloride 113 H, Carbon Dioxide 22.0, Anion Gap 5, BUN 8, Creatinine 0.92, Estim Creat Clear Calc 35.36, Est GFR (MDRD) Af Amer 75, Est GFR (MDRD) Non-Af 62, BUN/Creatinine Ratio 8.7 L, Glucose 97, Calcium 8.3 L, Total Bilirubin 1.60 H, AST 97 H, ALT 147 H, Alkaline Phosphatase 102, Total Protein 5.8 L, Albumin 3.0 L, Globulin 2.8, Albumin/Globulin Ratio 1.1 Radiography Diagnostic Testing: Radiology Impression Gallbladder Ultrasound 06/09/24 09:49 IMPRESSION: Contracted gallbladder. Mildly thickened gallbladder wall. Small cyst in the right lobe of the liver. Slightly dilated pancreatic duct. Electronically Signed: Lizandro Almanzar MD at 11:39 EDT , Abdomen/Pelvis CT 06/09/24 13:30 IMPRESSION: Status post cholecystectomy. Pneumobilia. A biliary stent is seen within the common bile duct and the distal portion is in the region of the ampulla Vater. Cystocele. No distended fluid-filled small bowel loops in the lower abdomen. Stable increased markings at the left lung base suggestive of atelectasis. Electronically Signed: Lizandro Almanzar MD at 14:38 EDT , ADDENDUM: 06/09/24 1510 IMPRESSION: undefined Rhythm Strip Rhythm Strip: Sinus Rhythm Rate: 57 Ectopy: None Physical Exam Const oriented x3 Resp normal respiratory effort GI GI Narrative: Nondistended, soft, nontender to palpation in the epigastrium more in the right upper quadrant Assessment & Plan Assessment/Plan (1) Gallstone pancreatitis: (2) Choledocholithiasis: (3) S/P ERCP: PLAN: Plan Patient 84-year-old female who presents after a acute onset epigastric abdominal discomfort that appears due to development of acute gallstone pancreatitis. She has hospital day 2 and pending laparoscopic cholecystectomy with intraoperative cholangiography later today. She continues to deny any persistence of her presenting pain. Indeed, her exam is benign. She also denies any questions related to today's procedure. Will plan to proceed to the operating room for a forementioned procedure. Postoperatively we will have to assess for her tolerance of the anesthetic and the procedure itself to determine if she is eligible for discharge home. I have also informed her that if cholangiography is concerning for stent obstruction this may extend her hospital stay on the account of need for further GI intervention. Elias Alaniz MD General Surgery Endocrine Surgery Pager: [facility] [address] [place] [address] [place] [address] Office: [phone]
[2024-06-10] MEDS: amLODIPine 5 MG Tablet PO (08:10)
[2024-06-10] MEDS: Carvedilol 6.25 MG Tablet PO ×2 (08:10→20:38)
[2024-06-10] MEDS: Dorzolamide HCL/Timolol 10 ml Bottle 1 DRP OPHTHALMIC ×2 (08:11→20:36)
--- NOTE | 2024-06-10 10:09 | CASEMGMT ---
LESVIA LGUO Assessment Face to Face with patient for initial transition planning/care coordination assessment. LESVIA LUGO introduced self and role at [facility], pt voices understanding. Pt is A&Ox4 and is resting comfortably in bed and is calm. Care providers, pharmacy, and demographics verified. Admitting dx: Suspected Gallstone, Pancreatitis LACE Strata: 2 PCP: Carol Quiroga Specialists: Denies Preferred Pharmacy: [facility] Insurance: [facility] Prescription Benefit: Yes LNOK: [place] (H) Living Arrangements: Pt lives with her in a ranch style home with 2 steps to enter ADLs/IADLs: Ind Transportation: Self, . Denies concerns DME: BP Monitor. denies further needs HHC/SNF: Denies Hx or needs Pt?s goal: Home Plan: Home no needs. 6-Click is 21. Pt denies the need for HHC, OP Tx, or SNF. Pt states that she feels safe discharging home once medically ready with the help of her and daughter. Pt denies further questions or concerns. Fransico Mcdermott RN, CM
--- NOTE | 2024-06-10 11:29 | PCM.PN.HOSP ---
Reason for Visit Reason for Visit: Diagnoses Calculus of bile duct without cholangitis or cholecystitis without obstruction (06/09/24) Biliary acute pancreatitis without necrosis or infection (06/09/24) Other specified postprocedural states (06/09/24) Objective Data Objective Data Vital Signs: Vital Signs Temp Pulse Resp BP Pulse Ox O2 Del Method 97.5 F L 68 16 166/65 H 95 Room Air 06/10/24 09:11 06/10/24 09:11 06/10/24 09:11 06/10/24 09:11 06/10/24 09:11 06/10/24 09:11 Oxygen Delivery Method Room Air Weight: 123 lb 0.287 oz Body Mass Index (BMI) 22.5 Intake & Output: Intake and Output for Last 24 Hours 06/08/24 06/09/24 06/10/24 23:59 23:59 23:59 Intake Total 2432.5 / 2432.5 2009 Balance 2432.5 / 2432.5 2009 Lab / Micro Data 06/10/24 06:34 06/10/24 06:34 Labs: Laboratory Results - last 24 hr 06/10/24 06:34: WBC 8.0, RBC 4.01 L, Hgb 12.0, Hct 36.7 L, MCV 91.5, MCH 29.9, MCHC 32.7, RDW Std Deviation 45.8 H, RDW Coeff of Rose Marie 13.5, Plt Count 192, MPV 10.7, Sodium 140, Potassium 4.2, Chloride 113 H, Carbon Dioxide 22.0, Anion Gap 5, BUN 8, Creatinine 0.92, Estim Creat Clear Calc 35.36, Est GFR (MDRD) Af Amer 75, Est GFR (MDRD) Non-Af 62, BUN/Creatinine Ratio 8.7 L, Glucose 97, Calcium 8.3 L, Total Bilirubin 1.60 H, AST 97 H, ALT 147 H, Alkaline Phosphatase 102, Total Protein 5.8 L, Albumin 3.0 L, Globulin 2.8, Albumin/Globulin Ratio 1.1 Radiography Diagnostic Testing: Radiology Impression Gallbladder Ultrasound 06/09/24 09:49 IMPRESSION: Contracted gallbladder. Mildly thickened gallbladder wall. Small cyst in the right lobe of the liver. Slightly dilated pancreatic duct. Electronically Signed: Lizandro Almanzar MD at 11:39 EDT , Abdomen/Pelvis CT 06/09/24 13:30 IMPRESSION: Status post cholecystectomy. Pneumobilia. A biliary stent is seen within the common bile duct and the distal portion is in the region of the ampulla Vater. Cystocele. No distended fluid-filled small bowel loops in the lower abdomen. Stable increased markings at the left lung base suggestive of atelectasis. Electronically Signed: Lizandro Almanzar MD at 14:38 EDT , ADDENDUM: 06/09/24 1510 IMPRESSION: undefined Rhythm Strip Rhythm Strip: Sinus Rhythm Rate: 57 Ectopy: None Physical Exam Narrative Seen and examined. Patient complain of abdominal pain mainly right upper quadrant/epigastrium which persisted for about 90 minutes. She had recent ERCP for choledocholithiasis and the stone was removed with stent placement into distal CBD stricture. Lipase elevated 4000 361. Patient is now pain-free. Physical exam General: Alert, Oriented x3, Cooperative HEENT: Atraumatic, PERRLA, EOMI, Normocephalic Oral: No Gingival or Mucosal Lesions/ Ulcerations Neck: Supple, No JVD, Negative Carotid Bruits Chest wall/Lungs: Air entry diminished in bilateral lung bases. No crepitation/rhonchi Cardiovascular: Regular rate, Regular Rhythm, Normal S1, Normal S2, systolic murmur. Abdomen: Bowel Sounds Present, Soft, Non Tender, Non-Distended. No palpable mass : No dysuria. No renal angle tenderness. No suprapubic tenderness. Extremities: No edema, Capillary Refill Less than 3 Seconds Skin: No rashes, No breakdown Musculoskeletal: No Tenderness to Palpation of Joints or Extremities Neurological: Cranial nerves II-XII grossly intact, DTR 2+/4. No acute focal neurological deficit. Psych/Mental Status: Normal Affect, Appropriate. Assessment & Plan Assessment/Plan (1) Gallstone pancreatitis: PLAN: Plan Patient is an 84-year-old female who presented [facility] ED on 06/09/2024 with recurrent abdominal pain. 1. Suspected gallstone pancreatitis ? Admit under inpatient status to [facility]. GI and general surgery consulted. Recent admission for choledocholithiasis with ERCP and stent placement. GB ultrasound shows contracted gallbladder with mildly thickened wall. Small cyst in right lower liver. Slightly dilated pancreatic duct. CT abdomen shows contracted gallbladder with pneumobilia. Biliary stent in the common bile duct and distal portion in the region of ampulla of Vater. Plan for cholecystectomy Continue LR 125 cc/h for maintenance IV fluids. Continue IV Zosyn for now. Tylenol, oxycodone and IV Dilaudid as needed ordered for pain control. Monitor CMP 2. Mild creatinine elevation ? Creatinine 1.06 on admit, baseline around 0.8. Presumed prerenal due to blood depletion from pancreatitis. Follow-up a.m. BMP after IV fluid resuscitation and monitor urine output. 06/10: BUN/creatinine ratio 8.7. Creatinine 0.92. 06/11 mildly hypertensive BP 166/68. 3. Hypertension ? Mildly hypertensive to 130s to 140s systolic in ED. Will continue home Coreg and amlodipine. Will hold home losartan for now, restart when able. 4. Hyperlipidemia ? Will hold home atorvastatin for now. 5. Glaucoma ? Continue home eyedrops. DVT prophylaxis: Lovenox CODE STATUS: DNR CCA, DNI Laboratory Results 06/10/24 06:34: WBC 8.0, RBC 4.01 L, Hgb 12.0, Hct 36.7 L, MCV 91.5, MCH 29.9, MCHC 32.7, RDW Std Deviation 45.8 H, RDW Coeff of Rose Marie 13.5, Plt Count 192, MPV 10.7, Sodium 140, Potassium 4.2, Chloride 113 H, Carbon Dioxide 22.0, Anion Gap 5, BUN 8, Creatinine 0.92, Estim Creat Clear Calc 35.36, Est GFR (MDRD) Af Amer 75, Est GFR (MDRD) Non-Af 62, BUN/Creatinine Ratio 8.7 L, Glucose 97, Calcium 8.3 L, Total Bilirubin 1.60 H, AST 97 H, ALT 147 H, Alkaline Phosphatase 102, Total Protein 5.8 L, Albumin 3.0 L, Globulin 2.8, Albumin/Globulin Ratio 1.1 Clinical Impression(s) from Imaging Studies Gallbladder Ultrasound 06/09/24 09:49 IMPRESSION: Contracted gallbladder. Mildly thickened gallbladder wall. Small cyst in the right lobe of the liver. Slightly dilated pancreatic duct. Abdomen/Pelvis CT 06/09/24 13:30 IMPRESSION: Status post cholecystectomy. Pneumobilia. A biliary stent is seen within the common bile duct and the distal portion is in the region of the ampulla Vater. Cystocele. No distended fluid-filled small bowel loops in the lower abdomen. Stable increased markings at the left lung base suggestive of atelectasis. Cholangiogram 06/10/24 13:51 IMPRESSION: The limited extent seen Dilated common bile duct and central intrahepatic biliary ducts with nonvisualization of the distal portion of the common bile duct. A mass lesion should be ruled out. Charges/Coding Visit Charges Inpatient E&M: 45833 Subs Hosp L2
[2024-06-10] MEDS: Lactated Ringers 1,000 ML 15 ML IV (12:13)
--- NOTE | 2024-06-10 12:22 | PRE.ANES_ITS ---
ASA Classification* ASA Classification ASA Classification: 2 Assessment & Plan Anesthesia* Anesthesia Assessment Anesthesia Assessment: Discussed sedation and/or anesthesia options, risks, benefits, and alternatives with patient/parents/legal guardian/POA. Questions invited. The patient/parents/legal guardian/POA seems to understand and agrees to proceed with anesthesia plan. Reviewed the physical assessment, medical history, allergy history and patient home medications list prior to surgery/procedure/anesthetic and documented any changes. Performed airway and anesthesia risk assessments. Anesthesia Type Anesthesia Type: General (see written pre anesthesia record for full assessment) Anesthesia Focused Assessment* Temperature: 97.5 F Pulse Rate: 67 Blood Pressure: 145/79 Respiratory Rate: 16 Pulse Ox: 92 Airway Assessment Mouth opens: >3 cm Mallampati Score: II Focused Labs Anesthesia Preop lab: CBC WBC 8.0 K/mm3 (4.4-11.0) 06/10/24 06:34 RBC 4.01 M/mm3 (4.2-5.4) L 06/10/24 06:34 Hgb 12.0 g/dL (12.0-15.0) 06/10/24 06:34 Hct 36.7 % (37-47) L 06/10/24 06:34 Plt Count 192 K/mm3 (150-450) 06/10/24 06:34 CHEMISTRY Potassium 4.2 mmol/L (3.5-5.1) 06/10/24 06:34 Sodium 140 mmol/L (136-145) 06/10/24 06:34 Magnesium 1.9 mg/dL (1.6-2.6) 04/29/24 06:27 Phosphorus 3.5 mg/dL (2.5-4.9) 04/29/24 06:27 BUN 8 mg/dL (7-18) 06/10/24 06:34 Creatinine 0.92 mg/dL (0.55-1.02) 06/10/24 06:34 Glucose 97 mg/dL (74-106) 06/10/24 06:34 POC Glucose 109 mg/dL (70-110) 05/09/13 15:59 TSH 1.90 uIU/mL (0.358-3.74) 10/28/13 09:40 COAG PT 12.5 SECONDS (11.9-14.4) 05/09/13 15:55 Pre-Assessment Diagnosis/Proposed Procedure Planned Operative Procedure(s): lap chle Anesthesia History 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 When Was Last Pacemaker Check QUESTION #4 FULL TEXT: You/Your Family Experience fever (hyperthermia) with Anesthesia Last Oral Intake Last Oral intake: Last Oral Intake NPO since 00:00 06/10/24 09:42 Meds taken in AM with sips of Yes 06/10/24 09:42 water? Meds patient instructed to see mar 06/10/24 09:42 take am of surgery PONV PONV - tree care foreman: PONV - tree care foreman Female HX of Motion Sickness HX of N/V After Surgery Non-Smoker Duration of Surgery greater than 60 minutes Number of Risk Factors PONV Score Height & Weight Height & Weight: Anesthesia: Height & Weight Height 5 ft 2 in 06/10/24 12:11 Weight: 55.8 kg 06/10/24 12:11 Body Mass Index (BMI) 22.5 06/10/24 09:42 Respiratory Assessment Respiratory Assessment - tree care foreman: Respiratory Tract Infection Hx - tree care foreman Hx Respiratory Tract Infection No 06/09/24 21:41 STOP Sleep Apnea STOP Sleep Apnea - tree care foreman: STOP Sleep Apnea - tree care foreman Hx Hypertension Yes 06/09/24 15:37 Hx Sleep Apnea No 06/09/24 15:37 CPAP No 04/29/24 12:52 BIPAP No 04/29/24 01:55 Do you snore loudly (louder No 06/09/24 15:37 than talking or can be heard Do you often feel tired/ No 06/09/24 15:37 fatigued/ sleepy during daytime? Has anyone observed you stop No 06/09/24 15:37 breathing during sleep? STOP Results Negative 06/09/24 15:37 QUESTION #5 FULL TEXT : Do you snore loudly (louder than talking or can be heard through closed doors)? Tobacco Use History Tobacco Use History - tree care foreman: Tobacco Use History - tree care foreman Tobacco Use Smoking Status Never smoker 06/09/24 15:37 Hx Tobacco Use No 06/09/24 15:37 Years Smoking Packs Smoked per Day Smoking Cessation Date was within the last 15 years Hx Smoking Cessation Date Hx Smoking Cessation Counseling Hematologic Medial History Hematologic Hx - tree care foreman: Hematologic Medical Hx - media account executive Hx of Blood Transfusion No 06/09/24 15:37 Hx of Transfusion in last 3 No 06/09/24 15:37 Months Date of Last Transfusion (if within last 3 months) Ever experience any problems No 06/09/24 15:37 with transfusion(s)? Specify any problems Hx of Preganancy in last 3 No 06/09/24 15:37 Months Nurse Filling Out Transfusion MSCHMID 06/09/24 15:37 & Questions: Date: 06/09/24 06/09/24 15:37 Time: 15:52 06/09/24 15:37 Patient unable to answer at this time (ie. confused, unrespo /Reproduction History /Reproductive History - tree care foreman: /Reproductive Hx- tree care foreman Hx Now No 06/09/24 21:41 Gestational Age (in weeks): EDC: Hx Hx Para Hx Section SAB Active Medications Active Medications: Current Medications Generic Name Dose Route Start Last Admin Trade Name Freq PRN Reason Stop Dose Admin Acetaminophen 650 mg 06/09/24 15:36 06/10/24 06:12 Acetaminophen 325 Mg Tablet PO 650 mg Q6H PRN PRN Administration Pain 1-10 Or Fever>100.7 Amlodipine Besylate 5 mg 06/10/24 10:00 06/10/24 08:10 Amlodipine 5 Mg Tablet PO 5 mg DAILY ANN Administration Protocol Carvedilol 6.25 mg 06/09/24 22:00 06/10/24 08:10 Carvedilol 6.25 Mg Tablet PO 6.25 mg BID ANN Administration Protocol Diphenhydramine HCl 25 mg 06/09/24 15:49 Diphenhydramine 25 Mg Capsule PO QHS PRN sleep Dorzolamide/Timolol 1 drp 06/09/24 22:00 06/10/24 08:11 Dorzolamide Hcl/Timolol 10 Ml Bottle OPHTHALMIC 1 drp BID ANN Administration Enoxaparin Sodium 40 mg 06/10/24 10:00 06/09/24 21:40 Enoxaparin 40 Mg/0.4 Ml Syringe SC Not Given DAILY ANN Hydralazine HCl 10 mg 06/09/24 22:20 Hydralazine 20 Mg/Ml Vial IV Q4H PRN PRN SBP > 160 Protocol Hydromorphone HCl 0.5 mg 06/09/24 15:36 Hydromorphone 0.5 Mg/0.5 Ml Syringe IV Q4H PRN PRN Pain Score 6-10 Piperacillin Sod/Tazobactam 50 mls @ 12.5 mls/hr 06/09/24 22:00 06/10/24 10:19 Sod 3.375 gm/ Sodium Chloride IV Infused Q8 ANN Infusion Sodium Chloride 250 mls @ 15 mls/hr 06/09/24 15:43 IV .[id number] PRN Additional IVPB Infusion Sodium Chloride 250 mls @ 15 mls/hr 06/09/24 15:43 IV .[id number] PRN Saline Flush Lactated Ringer's 1,000 mls @ 15 mls/hr 06/10/24 12:15 06/10/24 12:13 IV 15 mls/hr .Q48H ANN Administration Melatonin 3 mg 06/09/24 15:36 06/09/24 21:36 Melatonin 3 Mg Tablet PO 3 mg QHS PRN PRN Administration INSOMNIA Ondansetron HCl 4 mg 06/09/24 15:36 Ondansetron 4 Mg/2 Ml Vial IV Q8H PRN PRN NAUSEA/VOMITING Oxycodone HCl 5 mg 06/09/24 15:36 Oxycodone 5 Mg Tablet PO Q4H PRN PRN Pain Score 4-10 Sodium Chloride 10 - 40 ml 06/09/24 15:43 0.9% Saline Lock 10 Ml Syringe IV UD PRN SALINE FLUSH PFSH Medical History Choledocholithiasis Glaucoma TIA (transient ischemic attack) (05/2013) Essential (primary) hypertension Hyperlipidemia Screening for intestinal cancer History of intestinal obstruction (~2014) Home Medications ?Medication ?Instructions ?Recorded ?Last Taken ?Type atorvastatin 20 mg tablet 20 mg PO QHS 02/29/20 06/08/24 History diphenhydramine 25 1 tab PO QHS PRN sleep 03/01/20 Unknown History mg-acetaminophen 500 mg tablet (Tylenol PM Extra Strength) carvedilol 6.25 mg tablet 6.25 mg PO BID 04/28/24 06/09/24 History dorzolamide 22.3 mg-timolol 6.8 1 drp ophthalmic (eye) Q12H 04/28/24 06/08/24 History mg/mL eye drops amlodipine 5 mg tablet 5 mg PO DAILY 06/09/24 06/09/24 History losartan 100 mg tablet 100 mg PO DAILY 06/09/24 06/09/24 History Allergy/AdvReac Type Severity Reaction Status Date / Time simvastatin (From Zocor) AdvReac Mild body aches Verified 05/18/24 09:09 Family History Father CVA (cerebral vascular accident) Hypertension Aunt Breast cancer Mother CVA (cerebral vascular accident) Hypertension Surgical History S/P ERCP History of resection of small bowel History of hysterectomy History of colonoscopy Social History household members: spouse housing: house Smoking Status: Never smoker alcohol intake: never substance use type: does not use Review of Systems (Anesthesia) ROS Narrative System reviewed and no additional complaints, except as documented.
--- NOTE | 2024-06-10 13:00 | GALL_PTH ---
PATIENT: ERIK MURCIA LOC: MS[facility] U#:[id number] AGE/SX: 84/F ROOM: AZ310 RE06/09/[address]: Dr. John Diehl MD : 1940 BED: 1 DIS: 06/11/2024 SPEC #: [id number] RECD: 06/10/24 18:15 STATUS: CESAR NIETO #: [id number] AVELINO: 06/10/24 13:[address]: Elias Alaniz DEPT: SURGICAL PATHOLOGY RECD BY: Edilma Hall ENTERED: 06/11/24 07:40 SP TYPE: GALLBLADDE KHADIJAH DR: MD Dr. Bubba Arias DO Dr. Prakash Chand, MD Dr. Rahsaan Friend, DO Tissues: Gallbladder, NOS Procedures: Surgery Specimen Level III HEADER OPERATION: Laparoscopic, cholecystectomy with IOC PRE-OP DIAGNOSIS: Gallstone pancreatitis TISSUE SUBMITTED: Gallbladder MICROSCOPIC DIAGNOSIS Gallbladder, cholecystectomy: Chronic cholecystitis. See comment. 06/14/2024 COMMENT No stones are identified in the container or in the gallbladder. MICROSCOPIC DESCRIPTION Slides are reviewed. GROSS DESCRIPTION Received is one container labeled with the patient's name and designated gallbladder. The specimen consists of a gallbladder measuring 6.5 cm in length and up to 3.5 cm in diameter. The external surface is pink-skelton, smooth and glistening for the most part. Focally it is granular, hemorrhagic and contains cautery artifact. The gallbladder contains light yellow mucoid bile. No stones are identified in the gallbladder or in the container. The mucosa is bile-stained and without any mass lesions. The gallbladder wall measures up to 0.3 cm in thickness. Cl[employer] Sunglasses Assembler sections from the gallbladder and the cystic duct are submitted in one cassette. / LEANDRO: 06/11/2024 TC:3 CPT: 10852
--- NOTE | 2024-06-10 13:51 | RAD_ITS ---
STUDY: INTRAOPERATIVE CHOLANGIOGRAM. REASON FOR EXAM: Female, 84 years old. Cholecystectomy. FLUOROSCOPY TIME (if supplied): ( 49 seconds ) minutes/seconds. 12.88 mGy. TECHNIQUE: An Intraop Cholangiogram was performed by the surgeon. Imaging was submitted. COMPARISON: None. FINDINGS: Dilated common bile duct. A biliary stent is seen within the common bile duct. The distal portion of the common bile duct is not visualized. The distal common bile duct obstruction should be ruled out. RAD/Cholangiogram/ O R,Initial IMPRESSION: The limited extent seen Dilated common bile duct and central intrahepatic biliary ducts with nonvisualization of the distal portion of the common bile duct. A mass lesion should be ruled out. Electronically Signed: Lizandro Almanzar MD at 14:54 EDT ,
[2024-06-10] MEDS: Bupiv/Epi 0.25% 30 ML Vial (15:03)
--- NOTE | 2024-06-10 15:07 | OP.PCM_ITS ---
Report of Operation Date of Procedure: 06/10/24 Pre-Operative Diagnosis: 1. Gallstone pancreatitis 2. History of choledocholithiasis status post ERCP and common bile duct stenting Post-Operative Diagnosis: Same Surgery/Procedure Performed:: Laparoscopic cholecystectomy with intraoperative cholangiography Description of Surgical Findings:: ? Evidence of mild chronic cholecystitis with adhesions of the gallbladder ? Cholangiogram showing opacification of patient's common bile duct stent and filling of the duodenum with retrograde filling of the common hepatic duct system Surgeon: Elias Alaniz chairman emeritus: Jan Chong Type of Anesthesia: General/Supplemental Anesthesiologist: John Silveira Specimen's removed: Gallbladder Estimated Blood Loss (mL): 25 Description of Procedure: After proper identification in the preoperative holding area the patient was brought to the operating room where she was positioned supine on the operating room table. Preoperatively SCDs were connected and antibiotics were administered (redosed). General anesthesia was then induced. Patient's abdomen was prepped and draped in usual sterile fashion. A formal timeout was conducted to confirm both patient and the procedure. Procedure was begun with a supraumbilical incision which was extended deeply down to the level of the fascia. The fascia was elevated and incised, as well as the peritoneum. A finger sweep was performed to ensure there were no underlying adhesions and a 12 mm balloon trocar was inserted. Pneumoperitoneum was established at 15 mmHg. Three additional trocars (all 5 mm) were placed in the epigastrium and in the right upper quadrant. Inspection of the peritoneum revealed no inadvertent injury to the viscera below. The gallbladder was visualized with evidence of mild to moderate chronic inflammation as there were adhesions of omentum to the serosa. These adhesions were gently pulled down but still resulted in some bleeding. On closer inspection, lateral to the gallbladder there was a small capsular tear in the liver that was treated with selective electrocautery resulting in hemostasis. The gallbladder fundus was then grasped and elevated cephalad. Then, using careful dissection the peritoneum was opened and the structures of the hepatocystic triangle were delineated. Once the critical view of safety was obtained, the cystic duct was singly clipped and partially divided with a ductotomy. Using an Mcmahan Pelion clamp, a cholangiocatheter was fed into the proximal segment of the cystic duct and clamped into place. Under fluoroscopy a cholangiogram was then obtained showing a standard length cystic duct flowing into a common bile duct containing a common bile duct stent. There was resistance of flow but ultimately there was filling of the duodenal sweep. There was also retrograde flow through the common hepatic duct into the right and left hepatic ducts. Satisfied with this result, the cholangiocatheter was withdrawn and the proximal cystic duct was sealed with clips and the cystic duct was completely transected. The same process was used for the cystic artery. The gallbladder was then removed from the gallbladder fossa with the use of electrocautery. Selective electrocautery was used to obtain hemostasis in the gallbladder fossa. The gallbladder was placed in an Endo Catch bag and removed from the peritoneum. Morison's pouch was irrigated and the effluent was suctioned free of the peritoneum. Hemostasis was inspected and there is slight erythema of the liver so I chose to place a small spot of fibrillar with manual pressure. When the area was reinspected again hemostasis was confirmed. Pneumoperitoneum was evacuated and the fascia of the 12 mm port sites was closed with #1Vicryl in a [id number] fashion. A total of 30 mL of anesthetic was injected at the po rt sites for postoperative pain control. The skin of each port site was then closed in subcuticular fashion using 4-0 Monocryl by the NIGHT COORDINATOR Steri-Strips and bandages were applied as dressings. Patient tolerated the procedure well without any apparent complications. On emergence from their anesthetic the patient was taken to PACU for ongoing recovery. Complications None Admit VTE Documentation VTE Mechan Device Prophylaxis: SCD's Procedures Digestive 40xxx-49xxx: [id number] Laparo cholecystectomy/graph
--- NOTE | 2024-06-10 15:24 | PCM.POST.ANE ---
Anesthesia: Postop Eval I Current Vital Signs Temperature: 98 F Pulse Rate: 81 Blood Pressure: 177/67 Respiratory Rate: 18 Pulse Ox: 93 Assessment Airway patent: Yes Spontaneous unlabored respirations: Yes nausea: No Vomiting: No Anesthesia Complication: No Fluid Hydration Crystalloid volume administer (ml): 800 Total IV fluid infused: 800 Progress Note Anesthesia document: Postop Eval 1 completed: Yes
--- NOTE | 2024-06-10 17:03 | POSTOPAN2_ITS ---
Anesthesia Postop Eval I Sum Postop Eval Completion status Anesthesia document: Postop Eval 1 completed: Yes Anesthesia Postop Eval I Summary Anesthesia Postop Eval I Summary: Anesthesia Postop Eval I: Assessment Summary Airway patent Yes 06/10/24 15:24 SEARCH [email or web address] Spontaneous unlabored Yes 06/10/24 15:24 SEARCH COORDINATOR.[email or web address] respirations Mental status nausea No 06/10/24 15:24 SEARCH COORDINATOR.CSIR Vomiting No 06/10/24 15:24 SEARCH COORDINATOR.CSIR Anesthesia Postop Eval I: Fluid Summary Crystalloid volume administer 800 06/10/24 15:24 SEARCH COORDINATOR.CSIR (ml) Colloids volume administered ( ml) Blood Product volume administered (ml) Total IV fluid infused 800 06/10/24 15:24 SEARCH COORDINATOR.CSIR Anesthesia Postop Eval I: Summary Notes Anesthesia Complication No 06/10/24 15:24 SEARCH COORDINATOR.CSIR Anesthesia Complication Comment: Post-operative progress note Anesthesia: Postop Eval II Evaluation Mental status: Awake Pain Level: 2 nausea: No Vomiting: No
--- NOTE | 2024-06-10 17:03 | PCM.POSTANE2 ---
Anesthesia Postop Eval I Sum Postop Eval Completion status Anesthesia document: Postop Eval 1 completed: Yes Anesthesia Postop Eval I Summary Anesthesia Postop Eval I Summary: Anesthesia Postop Eval I: Assessment Summary Airway patent Yes 06/10/24 15:24 SPORTS PHYSICAL [email or web address] Spontaneous unlabored Yes 06/10/24 15:24 SPORTS PHYSICAL [email or web address].CSIR respirations Mental status nausea No 06/10/24 15:24 SPORTS PHYSICAL THERAPIST.CSIR Vomiting No 06/10/24 15:24 SPORTS PHYSICAL [email or web address].[email or web address] Anesthesia Postop Eval I: Fluid Summary Crystalloid volume administer 800 06/10/24 15:24 SPORTS PHYSICAL THERAPIST.CSIR (ml) Colloids volume administered ( ml) Blood Product volume administered (ml) Total IV fluid infused 800 06/10/24 15:24 SPORTS PHYSICAL [email or web address].CSIR Anesthesia Postop Eval I: Summary Notes Anesthesia Complication No 06/10/24 15:24 SPORTS PHYSICAL THERAPIST.CSIR Anesthesia Complication Comment: Post-operative progress note Anesthesia: Postop Eval II Evaluation Mental status: Awake Pain Level: 2 nausea: No Vomiting: No
[2024-06-10] MEDS: HYDROmorphone 0.5 MG/0.5 ML SYRINGE IV (17:18)
--- NOTE | 2024-06-10 18:08 | PN.GI_ITS ---
Subjective Subjective Patient underwent cholecystectomy today. She is not having abdominal pain. She states that she is very hungry. Objective Data Objective Data Vital Signs: Vital Signs Temp Pulse Resp BP Pulse Ox O2 Del Method O2 Flow Rate 97.3 F L 87 16 144/84 H 98 Nasal Cannula 2 06/10/24 16:57 06/10/24 16:57 06/10/24 16:57 06/10/24 16:57 06/10/24 16:57 06/10/24 16:57 06/10/24 16:57 Oxygen Flow Rate (L/min) 2 Oxygen Delivery Method Nasal Cannula Weight: 123 lb 0.287 oz Body Mass Index (BMI) 22.5 Intake & Output: Intake and Output for Last 24 Hours 06/08/24 06/09/24 06/10/24 23:59 23:59 23:59 Intake Total 2432.5 / 2432.5 2059 Balance 2432.5 / 2432.5 2059 Lab / Micro Data 06/10/24 06:34 06/10/24 06:34 Labs: Laboratory Results - last 24 hr 06/10/24 06:34: WBC 8.0, RBC 4.01 L, Hgb 12.0, Hct 36.7 L, MCV 91.5, MCH 29.9, MCHC 32.7, RDW Std Deviation 45.8 H, RDW Coeff of Rose Marie 13.5, Plt Count 192, MPV 10.7, Sodium 140, Potassium 4.2, Chloride 113 H, Carbon Dioxide 22.0, Anion Gap 5, BUN 8, Creatinine 0.92, Estim Creat Clear Calc 35.36, Est GFR (MDRD) Af Amer 75, Est GFR (MDRD) Non-Af 62, BUN/Creatinine Ratio 8.7 L, Glucose 97, Calcium 8.3 L, Total Bilirubin 1.60 H, AST 97 H, ALT 147 H, Alkaline Phosphatase 102, T otal Protein 5.8 L, Albumin 3.0 L, Globulin 2.8, Albumin/Globulin Ratio 1.1 Radiography Diagnostic Testing: Radiology Impression Cholangiogram 06/10/24 13:51 IMPRESSION: The limited extent seen Dilated common bile duct and central intrahepatic biliary ducts with nonvisualization of the distal portion of the common bile duct. A mass lesion should be ruled out. Electronically Signed: Lizandro Almanzar MD at 14:54 EDT , Rhythm Strip Rhythm Strip: Sinus Rhythm Rate: 57 Ectopy: None Physical Exam Const alert, oriented x3, no apparent distress and average body habitus Constitutional Narrative: Pleasant elderly female, appears younger than stated age, sitting up comfortably in bed, conversing normally, in no acute distress. General Appearance: cooperative and comfortable HEENT normocephalic, head/scalp atraumatic, hearing grossly normal bilaterally, nasal mucous membranes and turbinates normal and moist oral mucous membranes Eyes PERRL, EOMs intact bilaterally and conjunctivae normal Neck full ROM Chest inspection of chest normal Resp normal respiratory effort, normal air movement, no use of accessory muscles and clear to auscultation bilaterally Cardio regular rate, regular rhythm, no murmurs and peripheral pulses 2+ throughout GI GI Narrative: Mild tenderness to palpation in epigastric area. Abdomen otherwise soft and nondistended with normal bowel sounds. Back/Spine normal ROM Extremity normal to inspection, full ROM and no pedal edema Skin no rashes or lesions noted Neuro moves all extremities and no focal motor deficits Speech: speech normal Psych mental status grossly normal Assessment & Plan Assessment/Plan (1) Choledocholithiasis: (2) S/P ERCP: (3) Gallstone pancreatitis: PLAN: Plan Patient is an 84-year-old female who presented [facility] ED on 06/09/2024 with recurrent abdominal pain. Suspected gallstone pancreatitis ? She has a recent admission for choledocholithiasis with ERCP and stent placement. This presentation seems most consistent with gallstone pancreatitis. CT abdomen pelvis ordered by surgery for further evaluation. Tentatively planning for cholecystectomy on 06/10 and may need repeat ERCP. Continue LR 125 cc/h for maintenance IV fluids. Will empirically start IV Zosyn for now. Tylenol, oxycodone and IV Dilaudid as needed ordered for pain control. Follow- up a.m. CMP. Mild creatinine elevation ? Creatinine 1.06 on admit, baseline around 0.8. Presumed prerenal due to blood depletion from pancreatitis. Follow-up a.m. BMP after IV fluid resuscitation and monitor urine output. 06/10/2024: Successful cholecystectomy. However findings from the intraoperative cholangiogram include Dilated common bile duct and central intrahepatic biliary ducts with nonvisualization of the distal portion of the common bile duct. A mass lesion should be ruled out. Patient does have a stent at this time and it seems as if the contrast is going through the stent and not around the stent. It does appear that she has a stricture in the distal common bile duct. She may need ERCP with spyglass and biopsies. I will order a CA 19-9 and CEA. Charges/Coding Visit Charges Inpatient E&M: 91343 Subs Hosp L3
[2024-06-10] MEDS: Ondansetron 4 MG/2 ML Vial IV (18:15)
[2024-06-10] MEDS: oxyCODONE 5 MG Tablet PO (20:29)
[2024-06-10] MEDS: MELATONIN 3 MG TABLET PO (20:29)
[2024-06-10] MEDS: 0.9% Normal Saline (1000mL) 1,000 ML 50 ML IV (21:11)
[2024-06-10] MEDS: DiphenhydrAMINE 25 MG Capsule PO (23:38)
[2024-06-11] VITALS (12 sets, daily range): BP systolic 105–145; BP diastolic 51–79; PULSE 78–97; RESP 14–18; TEMP 36.3–36.6; O2SAT 91–95; BMI 22.5
--- NOTE | 2024-06-11 | FLU_PTH ---
PATIENT: ERIK MURCIA LOC: MS3 U#:[id number] AGE/SX: 84/F ROOM: MT310 RE06/09/[address]: Dr. John Diehl MD : 1940 BED: 1 DIS: 06/11/2024 SPEC #: [id number] RECD: 06/11/24 13:53 STATUS: CESAR RETacos #: [id number] AVELINO: 06/11/24 00:[address]: Jerzy Kelly DEPT: CYTOLOGY RECD BY: Edilma Hall ENTERED: 06/14/24 07:45 SP TYPE: Fluid OTHR DR: MD Dr. Bubba Arias DO Dr. Michael Bortz, MD Dr. Prakash Chand, MD Tissues: Biliary tract, NOS Procedures: Special Stain Group II Surgery Specimen Level IV Cytospin Fluid HEADER OPERATION: ERCP with stent removal PRE-OP DIAGNOSIS: Choledocholithiasis, status post ERCP, gallstone pancreatitis TISSUE SUBMITTED: Biliary stent fluid for cytology DIAGNOSIS CYTOLOGY Biliary stent fluid for cytology (cytospin and cellblock): Negative for malignant cells. See comment. Meraz 06/15/2024 COMMENT Clinical correlation and appropriate follow up are necessary. CYTOLOGY STUDY Slides are reviewed. CYTOLOGY GROSS Received is 1 black stent 10cm with 0.2 ml of yellow material fluid labeled with the patient's name and and designated per the requisition as Biliary stent. Submitted for cytology preparation including cell block. Mr 06/14/2024 TC:5 CPT: 36443,99794
[2024-06-11] MEDS: oxyCODONE 5 MG Tablet PO (02:58)
[2024-06-11] MEDS: Piperacil/Tazobactam 3.375 GM in 0.9% Normal Saline (50mL MB+) 50 ML IV ×2 (05:45→14:51)
[2024-06-11 07:15] LABS: Absolute Lymphocyte Count 0.77 X10^3/uL (0.83-4.51); Absolute Neutrophil Count 12.6 X10^3/uL (2.0-7.7); Basophil# 0.02 X10^3/uL; Basophil% 0.1 % (0-1); Hematocrit 38.3 % (37-47); Hemoglobin 12.4 g/dL (12.0-15.0); Lymphocyte # 0.77 X10^3/ul (0.83-4.51); Lymphocyte % 5.4 % (19-41); Mean Corp Hgb Conc 32.4 g/dL (32-36); Mean Corpuscular Hgb 29.7 pg (27.0-32.0); Mean Corpuscular Volume 91.8 fL (81-99); Monocyte# 0.92 X10^3/uL; Monocyte% 6.4 % (0-10); NRBC Flagged by Analyzer 0 % (0-5); Neutrophil # 12.55 X10^3/uL (2.7-7.7); Neutrophil % 87.5 % (47-70); Platelet Count 196 K/mm3 (150-450); RBC Distribution Width CV 13.3 % (11.6-14.6); RBC Distribution Width SD 45.4 fl (35.1-43.9); Red Blood Count 4.17 M/mm3 (4.2-5.4); White Blood Count 14.3 K/mm3 (4.4-11.0)
--- NOTE | 2024-06-11 07:43 | PN.SURG_ITS ---
Subjective Subjective Labs pending, patient was tolerating clears previous to being n.p.o. midnight. Objective Data Objective Data Vital Signs: Vital Signs Temp Pulse Resp BP Pulse Ox O2 Del Method O2 Flow Rate 97.6 F L 88 16 121/51 H 92 Room Air 2 06/11/24 05:48 06/11/24 05:48 06/11/24 05:48 06/11/24 05:48 06/11/24 05:48 06/11/24 07:43 06/10/24 16:57 Oxygen Flow Rate (L/min) 2 Oxygen Delivery Method Room Air Weight: 123 lb 0.287 oz Body Mass Index (BMI) 22.5 Intake & Output: Intake and Output for Last 24 Hours 06/09/24 06/10/24 06/11/24 23:59 23:59 23:59 Intake Total 2432.5 / 2432.5 2489.75 / 2489.75 50 / 50 Balance 2432.5 / 2432.5 2489.75 / 2489.75 50 / 50 Lab / Micro Data 06/11/24 06:32 06/10/24 06:34 Labs: Laboratory Results - last 24 hr 06/11/24 06:32: WBC 14.3 H, RBC 4.17 L, Hgb 12.4, Hct 38.3, MCV 91.8, MCH 29.7, MCHC 32.4, RDW Std Deviation 45.4 H, RDW Coeff of Rose Marie 13.3, Plt Count 196, MPV 11.0, Immature Gran % (Auto) 0.600, Neut % (Auto) 87.5 H, Lymph % (Auto) 5.4 L, Saline % (Auto) 6.4, Eos % (Auto) 0.0, Baso % (Auto) 0.1, Absolute Neuts (auto) 12.6 H, Absolute Lymphs (auto) 0.77 L, Nucleated RBC % 0 Radiography Diagnostic Testing: Radiology Impression Cholangiogram 06/10/24 13:51 IMPRESSION: The limited extent seen Dilated common bile duct and central intrahepatic biliary ducts with nonvisualization of the distal portion of the common bile duct. A mass lesion should be ruled out. Electronically Signed: Lizandro Almanzar MD at 14:54 EDT , Rhythm Strip Rhythm Strip: Sinus Rhythm Rate: 57 Ectopy: None Physical Exam Resp normal respiratory effort Cardio regular rate GI GI Narrative: Abdomen: Soft, nondistended, tender near incision's dressed clean dry and intact, no peritoneal signs Assessment & Plan Assessment/Plan (1) S/P laparoscopic cholecystectomy: PLAN: Plan Currently n.p.o. awaiting labs. If LFTs are increased with plan to discuss with Dr. Kelly for possible ERCP. If okay will likely resume diet and likely DC today. Tonia Hollingsworth M.D. Pager: [phone] [facility] [address] [place] [address], [facility], [address] [place] [address] Office: [phone]
[2024-06-11 07:54] LABS: AST(SGOT) 38 U/L (15-37); Alanine Aminotransfer ALT/SGPT 104 U/L (13-56); Alkaline Phosphatase 81 U/L (45-117); Anion Gap 12 (5-15); BUN 9 mg/dL (7-18); BUN/Creat Ratio 11.1 RATIO (10-20); Calcium,Total 8.7 mg/dL (8.5-10.1); Chloride 106 mmol/L (98-107); Creatinine, Serum 0.81 mg/dL (0.55-1.02); EST Glomerular Filtration Rate 71 mL/min (>60); Est Glom Filt Rate - Afr Amer 86 mL/min (>60); Estimated Creatinine Clearance 40.16 ml/min; Globulin 3.1 g/dL (2.2-4.2); Glucose 121 mg/dL (74-106); Potassium 3.5 mmol/L (3.5-5.1); Protein, Total 6.1 g/dL (6.4-8.2); Sodium Level 137 mmol/L (136-145)
--- NOTE | 2024-06-11 08:03 | PCM.PN.HOSP ---
Reason for Visit Reason for Visit: Diagnoses Calculus of bile duct without cholangitis or cholecystitis without obstruction (06/09/24) Biliary acute pancreatitis without necrosis or infection (06/09/24) Acquired absence of other specified parts of digestive tract (06/09/24) Other specified postprocedural states (06/09/24) Objective Data Objective Data Vital Signs: Vital Signs Temp Pulse Resp BP Pulse Ox O2 Del Method O2 Flow Rate 97.6 F L 88 16 121/51 H 92 Room Air 2 06/11/24 05:48 06/11/24 05:48 06/11/24 05:48 06/11/24 05:48 06/11/24 05:48 06/11/24 07:43 06/10/24 16:57 Oxygen Flow Rate (L/min) 2 Oxygen Delivery Method Room Air Weight: 123 lb 0.287 oz Body Mass Index (BMI) 22.5 Intake & Output: Intake and Output for Last 24 Hours 06/09/24 06/10/24 06/11/24 23:59 23:59 23:59 Intake Total 2432.5 / 2432.5 2489.75 / 2489.75 50 / 50 Balance 2432.5 / 2432.5 2489.75 / 2489.75 50 / 50 Lab / Micro Data 06/11/24 06:32 06/11/24 06:32 Labs: Laboratory Results - last 24 hr 06/11/24 06:32: WBC 14.3 H, RBC 4.17 L, Hgb 12.4, Hct 38.3, MCV 91.8, MCH 29.7, MCHC 32.4, RDW Std Deviation 45.4 H, RDW Coeff of Rose Marie 13.3, Plt Count 196, MPV 11.0, Immature Gran % (Auto) 0.600, Neut % (Auto) 87.5 H, Lymph % (Auto) 5.4 L, Sweet Grass % (Auto) 6.4, Eos % (Auto) 0.0, Baso % (Auto) 0.1, Absolute Neuts (auto) 12.6 H, Absolute Lymphs (auto) 0.77 L, Nucleated RBC % 0, Sodium 137, Potassium 3.5, Chloride 106, Carbon Dioxide 19.0 L, Anion Gap 12, BUN 9, Creatinine 0.81, Estim Creat Clear Calc 40.16, Est GFR (MDRD) Af Amer 86, Est GFR (MDRD) Non-Af 71, BUN/Creatinine Ratio 11.1, Glucose 121 H, Calcium 8.7, Total Bilirubin 1.40 H, AST 38 H, ALT 104 H, Alkaline Phosphatase 81, Total Protein 6.1 L, Albumin 3.0 L, Globulin 3.1, Albumin/Globulin Ratio 1.0 Radiography Diagnostic Testing: Radiology Impression Cholangiogram 06/10/24 13:51 IMPRESSION: The limited extent seen Dilated common bile duct and central intrahepatic biliary ducts with nonvisualization of the distal portion of the common bile duct. A mass lesion should be ruled out. Electronically Signed: Lizandro Almanzar MD at 14:54 EDT , Rhythm Strip Rhythm Strip: Sinus Rhythm Rate: 57 Ectopy: None Physical Exam Narrative Seen and examined. Patient is doing well after surgery. No pain or fever. She said mild RUQ soreness Patient was admitted with abdominal pain mainly right upper quadrant/epigastrium which persisted for about 90 minutes. She had recent ERCP for choledocholithiasis and the stone was removed with stent placement into distal CBD stricture. Lipase was elevated 4000 and 361. Physical exam General: Alert, Oriented x3, Cooperative HEENT: Atraumatic, PERRLA, EOMI, Normocephalic Oral: No Gingival or Mucosal Lesions/ Ulcerations Neck: Supple, No JVD, Negative Carotid Bruits Chest wall/Lungs: Air entry diminished in bilateral lung bases. No crepitation/rhonchi Cardiovascular: Regular rate, Regular Rhythm, Normal S1, Normal S2, systolic murmur. Abdomen: Port dressing is dry. Bowel Sounds Present, Soft, Non Tender, Non-Distended. No palpable mass : No dysuria. No renal angle tenderness. No suprapubic tenderness. Extremities: No edema, Capillary Refill Less than 3 Seconds Skin: No rashes, No breakdown Musculoskeletal: No Tenderness to Palpation of Joints or Extremities Neurological: Cranial nerves II-XII grossly intact, DTR 2+/4. No acute focal neurological deficit. Psych/Mental Status: Normal Affect, Appropriate. Assessment & Plan Assessment/Plan (1) Gallstone pancreatitis: PLAN: Plan Patient is an 84-year-old female who presented [facility] ED on 06/09/2024 with recurrent abdominal pain. 1. Suspected gallstone pancreatitis ? Admit under inpatient status to [facility]. GI and general surgery consulted. Recent admission for choledocholithiasis with ERCP and stent placement. GB ultrasound shows contracted gallbladder with mildly thickened wall. Small cyst in right lower liver. Slightly dilated pancreatic duct. CT abdomen shows contracted gallbladder with pneumobilia. Biliary stent in the common bile duct and distal portion in the region of ampulla of Vater. Plan for cholecystectomy Continue LR 125 cc/h for maintenance IV fluids. Continue IV Zosyn for now. Tylenol, oxycodone and IV Dilaudid as needed ordered for pain control. Monitor CMP 06/11: Liver chemistries improving including total and direct bilirubin. ALP normal. Mild leukocytosis. INR ordered. Mild leukocytosis 14.3 thousand. No fever probably postsurgical inflammation. Intraoperative cholangiogram imaging reviewed. Discussed with the surgeon. Overall it seems stent is in good position with good flow of contrast proximally and distally on cholangiogram but reported as nonvisualization of distal portion of CBD and mass lesion could not be ruled out 2 Mild creatinine elevation ? Creatinine 1.06 on admit, baseline around 0.8. Presumed prerenal due to blood depletion from pancreatitis. Follow-up a.m. BMP after IV fluid resuscitation and monitor urine output. 06/10: BUN/creatinine ratio 8.7. Creatinine 0.92. 3. Hypertension ? Mildly hypertensive to 130s to 140s systolic in ED. Will continue home Coreg and amlodipine. Will hold home losartan for now, restart when able. 06/11: Blood pressure normal. It was elevated yesterday. 4. Hyperlipidemia ? Will hold home atorvastatin for now. 5. Glaucoma ? Continue home eyedrops. DVT prophylaxis: Lovenox CODE STATUS: DNR CCA, DNI Laboratory Results 06/10/24 06:34: Carcinoembryonic Ag Pending, CA 19-9 Antigen Pending 06/11/24 06:32: WBC 14.3 H, RBC 4.17 L, Hgb 12.4, Hct 38.3, MCV 91.8, MCH 29.7, MCHC 32.4, RDW Std Deviation 45.4 H, RDW Coeff of Rose Marie 13.3, Plt Count 196, MPV 11.0, Immature Gran % (Auto) 0.600, Neut % (Auto) 87.5 H, Lymph % (Auto) 5.4 L, Sweet [place] % (Auto) 6.4, Eos % (Auto) 0.0, Baso % (Auto) 0.1, Absolute Neuts (auto) 12.6 H, Absolute Lymphs (auto) 0.77 L, Nucleated RBC % 0, Sodium 137, Potassium 3.5, Chloride 106, Carbon Dioxide 19.0 L, Anion Gap 12, BUN 9, Creatinine 0.81, Estim Creat Clear Calc 40.16, Est GFR (MDRD) Af Amer 86, Est GFR (MDRD) Non-Af 71, BUN/Creatinine Ratio 11.1, Glucose 121 H, Calcium 8.7, Total Bilirubin 1.40 H, Direct Bilirubin 0.34 H, AST 38 H, ALT 104 H, Alkaline Phosphatase 81, Total Protein 6.1 L, Albumin 3.0 L, Globulin 3.1, Albumin/Globulin Ratio 1.0 Clinical Impression(s) from Imaging Studies Gallbladder Ultrasound 06/09/24 09:49 IMPRESSION: Contracted gallbladder. Mildly thickened gallbladder wall. Small cyst in the right lobe of the liver. Slightly dilated pancreatic duct. Abdomen/Pelvis CT 06/09/24 13:30 IMPRESSION: Status post cholecystectomy. Pneumobilia. A biliary stent is seen within the common bile duct and the distal portion is in the region of the ampulla Vater. Cystocele. No distended fluid-filled small bowel loops in the lower abdomen. Stable increased markings at the left lung base suggestive of atelectasis. Cholangiogram 06/10/24 13:51 IMPRESSION: The limited extent seen Dilated common bile duct and central intrahepatic biliary ducts with nonvisualization of the distal portion of the common bile duct. A mass lesion should be ruled out. Charges/Coding Visit Charges Inpatient E&M: 72222 Subs Hosp L2
[2024-06-11 08:48] LABS: Bilirubin, Direct 0.34 mg/dL (0.00-0.30)
[2024-06-11] MEDS: Carvedilol 6.25 MG Tablet PO (09:19)
[2024-06-11] MEDS: amLODIPine 5 MG Tablet PO (09:19)
[2024-06-11] MEDS: Dorzolamide HCL/Timolol 10 ml Bottle 1 DRP OPHTHALMIC (09:20)
[2024-06-11] MEDS: 0.9% Normal Saline (1000mL) 1,000 ML 15 ML IV (11:05)
--- NOTE | 2024-06-11 11:26 | PCM.PRE.AN2 ---
ASA Classification* ASA Classification ASA Classification: 2 Assessment & Plan Anesthesia* Anesthesia Assessment Anesthesia Assessment: Discussed sedation and/or anesthesia options, risks, benefits, and alternatives with patient/parents/legal guardian/POA. Questions invited. The patient/parents/legal guardian/POA seems to understand and agrees to proceed with anesthesia plan. Reviewed the physical assessment, medical history, allergy history and patient home medications list prior to surgery/procedure/anesthetic and documented any changes. Performed airway and anesthesia risk assessments. Anesthesia Type Anesthesia Type: General History Source History Obtained from:: Patient and Chart Anesthesia Focused Assessment* Temperature: 97.6 F Pulse Rate: 84 Blood Pressure: 124/74 Respiratory Rate: 18 Pulse Ox: 93 Oxygen Delivery Method: Room Air Airway Assessment Mouth opens: >3 cm Mallampati Score: III Teeth Condition: Intact Neck Range of motion (ROM): Full ROM Pertinent Findings EKG Pertinent Findings:: June 09, 2024. Sinus bradycardia 57 bpm. Focused Labs Anesthesia Preop lab: CBC WBC 14.3 K/mm3 (4.4-11.0) H 06/11/24 06:32 RBC 4.17 M/mm3 (4.2-5.4) L 06/11/24 06:32 Hgb 12.4 g/dL (12.0-15.0) 06/11/24 06:32 Hct 38.3 % (37-47) 06/11/24 06:32 Plt Count 196 K/mm3 (150-450) 06/11/24 06:32 CHEMISTRY Potassium 3.5 mmol/L (3.5-5.1) 06/11/24 06:32 Sodium 137 mmol/L (136-145) 06/11/24 06:32 Magnesium 1.9 mg/dL (1.6-2.6) 04/29/24 06:27 Phosphorus 3.5 mg/dL (2.5-4.9) 04/29/24 06:27 BUN 9 mg/dL (7-18) 06/11/24 06:32 Creatinine 0.81 mg/dL (0.55-1.02) 06/11/24 06:32 Glucose 121 mg/dL (74-106) H 06/11/24 06:32 POC Glucose 109 mg/dL (70-110) 09/01/13 15:59 TSH 1.90 uIU/mL (0.358-3.74) 10/28/13 09:40 COAG PT 12.5 SECONDS (11.9-14.4) 05/09/13 15:55 Pre-Assessment Diagnosis/Proposed Procedure Planned Operative Procedure(s): Endoscopic retrograde cholangiopancreatography Anesthesia History Anesthesia History - control clerk repairs: Anesthesia History - control clerk repairs Hx Hospitalization Any Problems With Anesthesia No 06/09/24 21:41 Cholinesterase deficiency No 06/09/24 21:41 You/Your Family Experience No 06/09/24 21:41 fever (hyperthermia) with Relationship Recent Exposure to Contagious No 06/09/24 21:41 Disease Does patient have nerve No 06/09/24 21:41 stimulator Patient instructed to have device shut off --Does patient have Pacemaker No 06/11/24 10:56 or ICD? When Was Last Pacemaker Check QUESTION #4 FULL TEXT: You/Your Family Experience fever (hyperthermia) with Anesthesia Last Oral Intake Last Oral intake: Last Oral Intake NPO since 00:00 06/11/24 10:56 Meds taken in AM with sips of Yes 06/11/24 10:56 water? Meds patient instructed to coreg, amlodipine 06/11/24 10:56 take am of surgery PONV PONV - control clerk repairs: PONV - control clerk repairs Female HX of Motion Sickness HX of N/V After Surgery Non-Smoker Duration of Surgery greater than 60 minutes Number of Risk Factors PONV Score Height & Weight Height & Weight: Anesthesia: Height & Weight Height 5 ft 2 in 06/11/24 10:56 Weight: 55.8 kg 06/11/24 10:56 Body Mass Index (BMI) 22.5 06/11/24 10:56 Respiratory Assessment Respiratory Assessment - control clerk repairs: Respiratory Tract Infection Hx - control clerk repairs Hx Respiratory Tract Infection No 06/09/24 21:41 STOP Sleep Apnea STOP Sleep Apnea - control clerk repairs: STOP Sleep Apnea - control clerk repairs Hx Hypertension Yes 06/09/24 15:37 Hx Sleep Apnea No 06/10/24 16:05 CPAP No 06/10/24 15:23 BIPAP No 04/29/24 01:55 Do you snore loudly (louder No 06/09/24 15:37 than talking or can be heard Do you often feel tired/ No 06/09/24 15:37 fatigued/ sleepy during daytime? Has anyone observed you stop No 06/09/24 15:37 breathing during sleep? STOP Results Negative 06/10/24 15:23 QUESTION #5 FULL TEXT : Do you snore loudly (louder than talking or can be heard through closed doors)? Tobacco Use History Tobacco Use History - control clerk repairs: Tobacco Use History - control clerk repairs Tobacco Use Smoking Status Never smoker 06/09/24 15:37 Hx Tobacco Use No 06/09/24 15:37 Years Smoking Packs Smoked per Day Smoking Cessation Date was within the last 15 years Hx Smoking Cessation Date Hx Smoking Cessation Counseling Hematologic Medial History Hematologic Hx - control clerk repairs: Hematologic Medical Hx - industrial cleaner Hx of Blood Transfusion No 06/09/24 15:37 Hx of Transfusion in last 3 No 06/09/24 15:37 Months Date of Last Transfusion (if within last 3 months) Ever experience any problems No 06/09/24 15:37 with transfusion(s)? Specify any problems Hx of Preganancy in last 3 No 06/09/24 15:37 Months Nurse Filling Out Transfusion [email or web address] 06/09/24 15:37 & Questions: Date: 06/09/24 06/09/24 15:37 Time: 15:52 06/09/24 15:37 Patient unable to answer at this time (ie. confused, unrespo /Reproduction History /Reproductive History - control clerk repairs: /Reproductive Hx- control clerk repairs Hx Now No 06/09/24 21:41 Gestational Age (in weeks): EDC: Hx Hx Para Hx Section SAB Active Medications Active Medications: Current Medications Generic Name Dose Route Start Last Admin Trade Name Freq PRN Reason Stop Dose Admin Acetaminophen 650 mg 06/09/24 15:36 06/10/24 06:12 Acetaminophen 325 Mg Tablet PO 650 mg Q6H PRN PRN Administration Pain 1-10 Or Fever>100.7 Amlodipine Besylate 5 mg 06/10/24 10:00 06/11/24 09:19 Amlodipine 5 Mg Tablet PO 5 mg DAILY ANN Administration Protocol Carvedilol 6.25 mg 06/09/24 22:00 06/11/24 09:19 Carvedilol 6.25 Mg Tablet PO 6.25 mg BID ANN Administration Protocol Diphenhydramine HCl 25 mg 06/09/24 15:49 06/10/24 23:38 Diphenhydramine 25 Mg Capsule PO 25 mg QHS PRN Administration sleep Dorzolamide/Timolol 1 drp 06/09/24 22:00 06/11/24 09:20 Dorzolamide Hcl/Timolol 10 Ml Bottle OPHTHALMIC 1 drp BID ANN Administration Enoxaparin Sodium 40 mg 06/10/24 10:00 06/11/24 09:20 Enoxaparin 40 Mg/0.4 Ml Syringe SC Not Given DAILY ANN Hydralazine HCl 10 mg 06/10/24 16:55 Hydralazine 20 Mg/Ml Vial IV Q4H PRN PRN SBP > 180 Protocol Hydromorphone HCl 0.5 mg 06/09/24 15:36 06/10/24 17:18 Hydromorphone 0.5 Mg/0.5 Ml Syringe IV 0.5 mg Q4H PRN PRN Administration Pain Score 6-10 Piperacillin Sod/Tazobactam 50 mls @ 12.5 mls/hr 06/09/24 22:00 06/11/24 09:45 Sod 3.375 gm/ Sodium Chloride IV Infused Q8 ANN Infusion Sodium Chloride 250 mls @ 15 mls/hr 06/09/24 15:43 IV .[id number] PRN Additional IVPB Infusion Sodium Chloride 250 mls @ 15 mls/hr 06/09/24 15:43 IV .[id number] PRN Saline Flush Sodium Chloride 1,000 mls @ 50 mls/hr 06/10/24 20:55 06/10/24 21:11 IV 50 mls/hr .Q20H ANN Administration Sodium Chloride 1,000 mls @ 15 mls/hr 06/11/24 11:05 06/11/24 11:05 IV 15 mls/hr .Q48H ANN Administration Melatonin 3 mg 06/09/24 15:36 06/10/24 20:29 Melatonin 3 Mg Tablet PO 3 mg QHS PRN PRN Administration INSOMNIA Ondansetron HCl 4 mg 06/09/24 15:36 06/10/24 18:15 Ondansetron 4 Mg/2 Ml Vial IV 4 mg Q8H PRN PRN Administration NAUSEA/VOMITING Oxycodone HCl 5 mg 06/09/24 15:36 06/11/24 02:58 Oxycodone 5 Mg Tablet PO 5 mg Q4H PRN PRN Administration Pain Score 4-10 Sodium Chloride 10 - 40 ml 06/09/24 15:43 0.9% Saline Lock 10 Ml Syringe IV UD PRN SALINE FLUSH PFSH Medical History Choledocholithiasis Glaucoma TIA (transient ischemic attack) (05/2013) Essential (primary) hypertension Hyperlipidemia Screening for intestinal cancer History of intestinal obstruction (~2014) Home Medications ?Medication ?Instructions ?Recorded ?Last Taken ?Type atorvastatin 20 mg tablet 20 mg PO QHS 02/29/20 06/08/24 History diphenhydramine 25 1 tab PO QHS PRN sleep 03/01/20 Unknown History mg-acetaminophen 500 mg tablet (Tylenol PM Extra Strength) carvedilol 6.25 mg tablet 6.25 mg PO BID 04/28/24 06/09/24 History dorzolamide 22.3 mg-timolol 6.8 1 drp ophthalmic (eye) Q12H 04/28/24 06/08/24 History mg/mL eye drops amlodipine 5 mg tablet 5 mg PO DAILY 06/09/24 06/09/24 History losartan 100 mg tablet 100 mg PO DAILY 06/09/24 06/09/24 History Allergy/AdvReac Type Severity Reaction Status Date / Time simvastatin (From Zocor) AdvReac Mild body aches Verified 05/18/24 09:09 Family History Father CVA (cerebral vascular accident) Hypertension Aunt Breast cancer Mother CVA (cerebral vascular accident) Hypertension Surgical History S/P laparoscopic cholecystectomy S/P ERCP History of resection of small bowel History of hysterectomy History of colonoscopy Social History household members: spouse housing: house Smoking Status: Never smoker alcohol intake: never substance use type: does not use Review of Systems (Anesthesia) ROS Narrative System reviewed and no additional complaints, except as documented.
--- NOTE | 2024-06-11 12:41 | DCINST_ITS ---
Discharge Instructions Diet Discharge Diet: Light diet - advance as tolerated Activity Discharge Activity: May Not Drive (while taking narcotic pain medications.) May shower in (days): 1 Lifting Restrictions: no lifting >20 lbs x 2 wks, no strenuous exercise for 4 wks Dressing / Incision Call your doctor if your incision/area has: Continuous Slow Oozing, Sudden Increased Bleeding, Increased Pain/ Swelling, Increased Redness, Foul Smelling Discharge and Swelling at the incision site Call your doctor if you observe: Fever of 101 or Higher Remove Dressing in: 2 days Cleanse incision/area with: Soap & Water Additional Dressing/Incision Instructions:: Steri-Strips will fall off in 7 to 10 days, if they do not fall off okay to remove after 10 days. Follow Up Care Please Follow Up With: Elias Alaniz MD When: Call the office for a follow-up appointment 2 weeks; after 5 PM and on the weekends call [phone] with any concerns. Test Results: Test results from this visit will be discussed in further detail at your follow- up appointment, if applicable. Discharge Plan Admission Admit Date/Time: 06/09/24 13:42 Attending Provider: John Diehl Primary Care Provider: Carol Quiroga Consulting Providers: Jerzy Kelly; Elias Alaniz; Bubba Grissom Discharge Orders/Prescriptions Prescriptions: New oxycodone 5 mg capsule 5 mg PO Q6H PRN (Reason: pain) 3 Days Qty: 5 0RF No Action diphenhydramine-acetaminophen [Tylenol PM Extra Strength] 25-500 mg tablet 1 tab PO QHS PRN (Reason: sleep) atorvastatin 20 mg tablet 20 mg PO QHS carvedilol 6.25 mg tablet 6.25 mg PO BID dorzolamide-timolol 22.3-6.8 mg/mL drops 1 drp ophthalmic (eye) Q12H Rx Instructions: both eyes amlodipine 5 mg tablet 5 mg PO DAILY losartan 100 mg tablet 100 mg PO DAILY Referrals / Follow Up: Carol Quiroga MD [Primary Care Provider] -
--- NOTE | 2024-06-11 13:15 | RAD_ITS ---
STUDY: ERCP. REASON FOR EXAM: Female, 84 years old. Follow-up FLUOROSCOPY TIME (if supplied): ( 149 seconds. RADIATION DOSE: 31.5 mGy. TECHNIQUE: Fluoroscopic services provided for ERCP. COMPARISON: 04/29/2024 FINDINGS: ERCP images were obtained for documentation. Common bile duct stent is seen. Dilated common bile duct. RAD/ERCP Biliary/Pancreas IMPRESSION: ERCP images obtained for documentation. Electronically Signed: Jeffry Carter MD at 14:21 EDT ,
--- NOTE | 2024-06-11 13:50 | PCM.POST.ANE ---
Anesthesia: Postop Eval I Current Vital Signs Temperature: 97.3 F Pulse Rate: 89 Blood Pressure: 105/62 Respiratory Rate: 16 Pulse Ox: 93 Oxygen Delivery Method: Room Air Assessment Airway patent: Yes Spontaneous unlabored respirations: Yes Mental status: Asleep nausea: No Vomiting: No Anesthesia Complication: No Fluid Hydration Crystalloid volume administer (ml): 600 Total IV fluid infused: 600 Progress Note Anesthesia document: Postop Eval 1 completed: Yes
[2024-06-11 14:23] LABS: International Normalized Ratio 1.2; Prothrombin Time (Protime)PT. 15.2 SECONDS (11.7-14.9)
--- NOTE | 2024-06-11 14:29 | ANES.CONFIRM ---
Anesthesia: Confirm Documents Multiple Procedures on Account (2) Confirmed Documents: Yes
--- NOTE | 2024-06-11 15:14 | DCINST_ITS ---
Discharge Instructions Diet Discharge Diet: Light diet - advance as tolerated Activity May shower in (days): 1 Dressing / Incision Call your doctor if your incision/area has: Continuous Slow Oozing, Sudden Increased Bleeding, Increased Pain/ Swelling, Increased Redness, Foul Smelling Discharge and Swelling at the incision site Call your doctor if you observe: Fever of 101 or Higher Cleanse incision/area with: Soap & Water Additional Dressing/Incision Instructions:: Steri-Strips will fall off in 7 to 10 days, if they do not fall off okay to remove after 10 days. Follow Up Care Please Follow Up With: Elias Alaniz MD Test Results: Test results from this visit will be discussed in further detail at your follow- up appointment, if applicable. Discharge Plan Admission Admit Date/Time: 06/09/24 13:42 Primary Reason for Your Visit: Acute cholecystitis, status post lap cholecystectomy and removal of CBD becky Attending Provider: John Diehl Primary Care Provider: Carol Quiroga Consulting Providers: Jerzy Kelly; Elias Alaniz; Bubba Grissom Discharge Orders/Prescriptions Prescriptions: New oxycodone 5 mg capsule 5 mg PO Q6H PRN (Reason: pain) 3 Days Qty: 5 0RF Continued diphenhydramine-acetaminophen [Tylenol PM Extra Strength] 25-500 mg tablet 1 tab PO QHS PRN (Reason: sleep) atorvastatin 20 mg tablet 20 mg PO QHS carvedilol 6.25 mg tablet 6.25 mg PO BID dorzolamide-timolol 22.3-6.8 mg/mL drops 1 drp ophthalmic (eye) Q12H Rx Instructions: both eyes amlodipine 5 mg tablet 5 mg PO DAILY Changed losartan 100 mg tablet 50 mg PO DAILY 30 Days Qty: 0 0RF Rx Instructions: Hold for SBP less than 130 mmHg Referrals / Follow Up: Carol Quiroga MD [Primary Care Provider] - Disposition Disposition (needs filled in before D/C Order can be placed): Home, Self Care
--- NOTE | 2024-06-11 15:18 | PCM.DC.SUM ---
Providers Date of Admission: 06/09/24 Date of Discharge: 06/11/24 Primary Care Physician: Dr. Carol Quiroga MD Consultations 06/09/24 15:36 Consult: Gastroenterology Routine Consulting Provider: RobinJerzy Reason for Consult: suspected gallstone pancreatitis EMERGENT Consult: No Notified: Yes Date Notified: 06/09/24 Time Notified: 16:36 Method of Notification: Text Consult: General Surgery Routine Consulting Provider: Elias Alaniz Reason for Consult: suspected gallstone pancreatitis EMERGENT Consult: No Notified: Yes Date Notified: 06/09/24 Time Notified: 16:36 Method of Notification: Text Reason For Visit: SUSPECTED GALLSTONE PANCREATITIS Diagnosis Discharge Diagnosis (1) Gallstone pancreatitis: Status: Acute Code(s): K85.10 - Biliary acute pancreatitis without necrosis or infection Plan Patient is an 84-year-old female who presented [facility] ED on 06/09/2024 with recurrent abdominal pain. 1. Suspected gallstone pancreatitis ? Admit under inpatient status to [facility]. GI and general surgery consulted. Recent admission for choledocholithiasis with ERCP and stent placement. GB ultrasound shows contracted gallbladder with mildly thickened wall. Small cyst in right lower liver. Slightly dilated pancreatic duct. CT abdomen shows contracted gallbladder with pneumobilia. Biliary stent in the common bile duct and distal portion in the region of ampulla of Vater. Plan for cholecystectomy Continue LR 125 cc/h for maintenance IV fluids. Continue IV Zosyn for now. Tylenol, oxycodone and IV Dilaudid as needed ordered for pain control. Monitor CMP 06/11: Liver chemistries improving including total and direct bilirubin. ALP normal. Mild leukocytosis. INR ordered. Mild leukocytosis 14.3 thousand. No fever probably postsurgical inflammation. Intraoperative cholangiogram imaging reviewed. Discussed with the surgeon. Overall it seems stent is in good position with good flow of contrast proximally and distally on cholangiogram but reported as nonvisualization of distal portion of CBD and mass lesion could not be ruled out Patient returned after ERCP. His stent was removed. Patient and her are asking for discharge. Discussed with the surgeon Dr. Hollingsworth and fili for discharge after 2 PM IV antibiotic, Zosyn. No further need for home antibiotic. Patient was given a prescription for oxycodone by the surgeon. Follow-up in surgery in 2 weeks. 2 Mild creatinine elevation ? Creatinine 1.06 on admit, baseline around 0.8. Presumed prerenal due to blood depletion from pancreatitis. Follow-up a.m. BMP after IV fluid resuscitation and monitor urine output. 06/10: BUN/creatinine ratio 8.7. Creatinine 0.92. 06/11 creatinine normal range 3. Hypertension ? Mildly hypertensive to 130s to 140s systolic in ED. Will continue home Coreg and amlodipine. Will hold home losartan for now, restart when able. 06/11: Blood pressure normal. It was elevated yesterday. 4. Hyperlipidemia ? Will hold home atorvastatin for now. 5. Glaucoma ? Continue home eyedrops. DVT prophylaxis: Lovenox CODE STATUS: DNR CCA, DNI Laboratory Results 06/10/24 06:34: Carcinoembryonic Ag Pending, CA 19-9 Antigen Pending 06/11/24 06:32: WBC 14.3 H, RBC 4.17 L, Hgb 12.4, Hct 38.3, MCV 91.8, MCH 29.7, MCHC 32.4, RDW Std Deviation 45.4 H, RDW Coeff of Rose Marie 13.3, Plt Count 196, MPV 11.0, Immature Gran % (Auto) 0.600, Neut % (Auto) 87.5 H, Lymph % (Auto) 5.4 L, [place] % (Auto) 6.4, Eos % (Auto) 0.0, Baso % (Auto) 0.1, Absolute Neuts (auto) 12.6 H, Absolute Lymphs (auto) 0.77 L, Nucleated RBC % 0, Sodium 137, Potassium 3.5, Chloride 106, Carbon Dioxide 19.0 L, Anion Gap 12, BUN 9, Creatinine 0.81, Estim Creat Clear Calc 40.16, Est GFR (MDRD) Af Amer 86, Est GFR (MDRD) Non-Af 71, BUN/Creatinine Ratio 11.1, Glucose 121 H, Calcium 8.7, Total Bilirubin 1.40 H, Direct Bilirubin 0.34 H, AST 38 H, ALT 104 H, Alkaline Phosphatase 81, Total Protein 6.1 L, Albumin 3.0 L, Globulin 3.1, Albumin/Globulin Ratio 1.0 Clinical Impression(s) from Imaging Studies Gallbladder Ultrasound 06/09/24 09:49 IMPRESSION: Contracted gallbladder. Mildly thickened gallbladder wall. Small cyst in the right lobe of the liver. Slightly dilated pancreatic duct. Abdomen/Pelvis CT 06/09/24 13:30 IMPRESSION: Status post cholecystectomy. Pneumobilia. A biliary stent is seen within the common bile duct and the distal portion is in the region of the ampulla Vater. Cystocele. No distended fluid-filled small bowel loops in the lower abdomen. Stable increased markings at the left lung base suggestive of atelectasis. Cholangiogram 06/10/24 13:51 IMPRESSION: The limited extent seen Dilated common bile duct and central intrahepatic biliary ducts with nonvisualization of the distal portion of the common bile duct. A mass lesion should be ruled out. Medications at Discharge Home Medications atorvastatin 20 mg tablet 20 mg PO QHS 02/29/20 diphenhydramine 25 mg-acetaminophen 500 mg tablet (Tylenol PM Extra Strength) 1 tab PO QHS PRN sleep 03/01/20 carvedilol 6.25 mg tablet 6.25 mg PO BID 04/28/24 dorzolamide 22.3 mg-timolol 6.8 mg/mL eye drops 1 drp ophthalmic (eye) Q12H 04/28/24 amlodipine 5 mg tablet 5 mg PO DAILY 06/09/24 losartan 100 mg tablet 50 mg (1/2 x 100 mg) PO DAILY 30 days #0 tabs 06/11/24 oxycodone 5 mg capsule 5 mg PO Q6H PRN pain 3 days #5 caps 06/11/24 Physical Exam Narrative Please see exam finding on the same date. Weight / BMI Weight Weight: 123 lb 0.287 oz Body Mass Index (BMI) 22.5 ABG / Lab / Microbiology Data 06/11/24 06:32 06/11/24 06:32 Laboratory: Laboratory Results - last 24 hr 06/11/24 06:32: WBC 14.3 H, RBC 4.17 L, Hgb 12.4, Hct 38.3, MCV 91.8, MCH 29.7, MCHC 32.4, RDW Std Deviation 45.4 H, RDW Coeff of Rose Marie 13.3, Plt Count 196, MPV 11.0, Immature Gran % (Auto) 0.600, Neut % (Auto) 87.5 H, Lymph % (Auto) 5.4 L, [place] % (Auto) 6.4, Eos % (Auto) 0.0, Baso % (Auto) 0.1, Absolute Neuts (auto) 12.6 H, Absolute Lymphs (auto) 0.77 L, Nucleated RBC % 0, Sodium 137, Potassium 3.5, Chloride 106, Carbon Dioxide 19.0 L, Anion Gap 12, BUN 9, Creatinine 0.81, Estim Creat Clear Calc 40.16, Est GFR (MDRD) Af Amer 86, Est GFR (MDRD) Non-Af 71, BUN/Creatinine Ratio 11.1, Glucose 121 H, Calcium 8.7, Total Bilirubin 1.40 H, Direct Bilirubin 0.34 H, AST 38 H, ALT 104 H, Alkaline Phosphatase 81, Total Protein 6.1 L, Albumin 3.0 L, Globulin 3.1, Albumin/Globulin Ratio 1.0 06/11/24 13:53: PT 15.2 H, INR 1.2 Radiography Diagnostic Testing: Radiology Impression Endo Retro Cholangiopancreatogram 06/11/24 13:15 IMPRESSION: ERCP images obtained for documentation. Electronically Signed: Jeffry Carter MD at 14:21 EDT , D/C Instructions Discharge Diet: Light diet - advance as tolerated May shower in (days): 1 Call your doctor if your incision/area has: Continuous Slow Oozing, Sudden Increased Bleeding, Increased Pain/ Swelling, Increased Redness, Foul Smelling Discharge and Swelling at the incision site Call your doctor if you observe: Fever of 101 or Higher Cleanse incision/area with: Soap & Water Additional Dressing/Incision Instructions: Steri-Strips will fall off in 7 to 10 days, if they do not fall off okay to remove after 10 days. Please Follow Up With: Elias Alaniz MD When: Call the office for a follow-up appointment 2 weeks; after 5 PM and on the weekends call [phone] with any concerns. Meaningful Use Info Meaningful Use Meaningful Use Diagnoses (Choose all that apply): None applicable Ischemic Stroke Statin Dosing Therapy Reference: STATIN DOSE THERAPY REFERENCE: * Patients > 75 years receive moderate or high dose statin therapy. * Patients 75 years or YOUNGER should receive HIGH intensity statin dose unless contraindicated. You will be required to document reason for non-treatment if statin daily dose does not meet guidelines. HIGH DOSE STATIN THERAPY DAILY Atorvastatin > than or = to 40 mg Rosuvastatin > than or = to 20 mg Amlodipine + Atorvastatin > than or = to 2.5/40 mg Ezetimibe + Simvastatin 10/80 mg Simvastatin 80mg Discharge Plan Admission Admit Date/Time: 06/09/24 13:42 Primary Reason for Your Visit: Acute cholecystitis, status post lap cholecystectomy and removal of CBD becky Attending Provider: John Diehl Primary Care Provider: Carol Quiroga Consulting Providers: Robin,Jerzy; Elias Alaniz; Bubba Grissom Discharge Orders/Prescriptions Prescriptions: New oxycodone 5 mg capsule 5 mg PO Q6H PRN (Reason: pain) 3 Days Qty: 5 0RF Continued diphenhydramine-acetaminophen [Tylenol PM Extra Strength] 25-500 mg tablet 1 tab PO QHS PRN (Reason: sleep) atorvastatin 20 mg tablet 20 mg PO QHS carvedilol 6.25 mg tablet 6.25 mg PO BID dorzolamide-timolol 22.3-6.8 mg/mL drops 1 drp ophthalmic (eye) Q12H Rx Instructions: both eyes amlodipine 5 mg tablet 5 mg PO DAILY Changed losartan 100 mg tablet 50 mg PO DAILY 30 Days Qty: 0 0RF Rx Instructions: Hold for SBP less than 130 mmHg Referrals / Follow Up: Carol Quiroga MD [Primary Care Provider] - Tonia Hollingsworth MD [Med Staff - Active Staff] - Within 2 Weeks Disposition Disposition (needs filled in before D/C Order can be placed): Home, Self Care Charges/Coding Visit Charges Inpatient E&M: 75233 Disch Hosp >30min
--- NOTE | 2024-06-11 15:29 | CASEMGMT ---
Pt reports that she has directives naming dtr Katlyn as primary agent. SW advised pt that documents are not in pt chart and requested that pt bring a copy at her convenience. ELIZABETH Sawyer
--- NOTE | 2024-06-11 15:54 | PHA.DC_ITS ---
Pharmacy [facility] has performed discharge medication reconciliation and counseling for this patient. The patient's discharge medication list was reviewed for discrepancies and discrepancies were resolved. The patient was counseled on the following discharge medications and changes in medications for homegoing were reviewed. The Reason for Use, instructions for use, and potential side effects were reviewed for all new medications. The patient's questions regarding all of their medications were answered. 1. Oxycodone 5 mg PO Q6H PRN pain The patient was able to verbally demonstrate an understanding of their discharge medications. Medications at Discharge Home Medications atorvastatin 20 mg tablet 20 mg PO QHS 02/29/20 diphenhydramine 25 mg-acetaminophen 500 mg tablet (Tylenol PM Extra Strength) 1 tab PO QHS PRN sleep 03/01/20 carvedilol 6.25 mg tablet 6.25 mg PO BID 04/28/24 dorzolamide 22.3 mg-timolol 6.8 mg/mL eye drops 1 drp ophthalmic (eye) Q12H 04/28/24 amlodipine 5 mg tablet 5 mg PO DAILY 06/09/24 losartan 100 mg tablet 50 mg (1/2 x 100 mg) PO DAILY 30 days #0 tabs 06/11/24 oxycodone 5 mg capsule 5 mg PO Q6H PRN pain 3 days #5 caps 06/11/24
[2024-06-12 08:12] LABS: Carbohydrate AG 19-9 57 U/mL (0-35); Carcinoembryonic Antigen 1.6 ng/mL (0.0-4.7)
--- NOTE | 2024-06-15 08:20 | OP.CCLET_ITS ---
06/15/2024 Carol Quiroga [address] [place] [address] Re : ERCP procedure for Mya Mendes Dear Dr. Quiroga This procedure was performed on Tuesday, June 11, 2024. 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 The stricture was benign appearing. - The entire main bile duct was dilated, with a stone causing an obstruction. - Choledocholithiasis was found. Complete removal was accomplished by biliary sphincterotomy and balloon extraction. - A biliary sphincterotomy was performed. - The biliary tree was swept. - One stent was removed from the biliary tree. Recommendations : My findings are described in the full procedure note, which is enclosed. If I can be of further assistance, please feel free to contact me at . Sincerely, Jerzy Kelly, DO 06/15/2024 8:19:28 AM This report has been signed electronically.
--- NOTE | 2024-06-15 08:20 | OP.ERCP_ITS ---
Patient Name: Mya Mendes Procedure Date: 06/11/2024 12:39 PM Date of : 1940 Age: 84 Procedure: ERCP Indications: Stent removal Providers: Jerzy Kelly DO Medicines: Monitored Anesthesia Care Patient Profile: This is an 84 year old female. Refer to note in patient chart for documentation of history and physical. Patient has symptoms. Complications: No immediate complications. Procedure: Pre-Anesthesia Assessment: - Prior to the procedure, a History and Physical was performed, and patient medications and allergies were reviewed. The patient is competent. The risks and benefits of the procedure and the sedation options and risks were discussed with the patient. All questions were answered and informed consent was obtained. Patient identification and proposed procedure were verified by the physician in the pre-procedure area. Mental Status Examination: alert and oriented. Airway Examination: normal oropharyngeal airway and neck mobility. Respiratory Examination: clear to auscultation. CV Examination: normal. ASA Grade Assessment: II - A patient with mild systemic disease. After reviewing the risks and benefits, the patient was deemed in satisfactory condition to undergo the procedure. The anesthesia plan was to use monitored anesthesia care (MAC). Immediately prior to administration of medications, the patient was re-assessed for adequacy to receive sedatives. The heart rate, respiratory rate, oxygen saturations, blood pressure, adequacy of pulmonary ventilation, and response to care were monitored throughout the procedure. The physical status of the patient was re-assessed after the procedure. After obtaining informed consent, the scope was passed under direct vision. Throughout the procedure, the patient's blood pressure, pulse, and oxygen saturations were monitored continuously. The Duodenoscope was introduced through the mouth, and advanced to the duodenum and used to inject contrast into the bile duct. The ERCP was accomplished without difficulty. The patient tolerated the procedure well. Scope In: 1:10:34 PM Scope Out: 1:31:32 PM Total Procedure Duration Time 0 hours 20 minutes 58 seconds Findings: The tipple repairer film was normal. The esophagus was successfully intubated under direct vision. The scope was advanced to a normal major papilla in the descending duodenum without detailed examination of the pharynx, larynx and associated structures, and upper GI tract. The upper GI tract was grossly normal. A long 0.025 inch Jagwire was passed into the biliary tree. The short-nosed traction sphincterotome was passed over the guidewire and the bile duct was then deeply cannulated. Contrast was injected. I personally interpreted the bile duct images. There was brisk flow of contrast through the ducts. Image quality was adequate. Contrast extended to the entire biliary tree. Opacification of the main bile duct and entire biliary tree was successful. The maximum diameter of the ducts was 9 mm. The lower third of the main bile duct contained a single localized stenosis 6 mm in length. The main bile duct was locally dilated, with a stone causing an obstruction. The largest diameter was 10 mm. A 5 mm biliary sphincterotomy was made with a traction (standard) sphincterotome using ERBE electrocautery. There was no post-sphincterotomy bleeding. The biliary tree was swept with a 12 mm balloon starting at the bifurcation. All stones were removed. One stent was removed from the biliary tree using a snare and sent for cytology. The stent was found to be partially occluded via the water column test. Impression: - A single localized biliary stricture was found in the lower third of the main bile duct. The stricture was benign appearing. - The entire main bile duct was dilated, with a stone causing an obstruction. - Choledocholithiasis was found. Complete removal was accomplished by biliary sphincterotomy and balloon extraction. - A biliary sphincterotomy was performed. - The biliary tree was swept. - One stent was removed from the biliary tree. Procedure Code(s): --- Professional --- 15387, Endoscopic retrograde cholangiopancreatography (ERCP); with removal of foreign body(s) or stent(s) from biliary/pancreatic duct(s) 51955, Endoscopic retrograde cholangiopancreatography (ERCP); with removal of calculi/debris from biliary/pancreatic duct(s) 69107, Endoscopic retrograde cholangiopancreatography (ERCP); with sphincterotomy/papillotomy 06404, 26, Endoscopic catheterization of the biliary ductal system, radiological supervision and interpretation CPT copyright 2021 [employer]. All rights reserved. The codes documented in this report are preliminary and upon heavy truck driver review may be revised to meet current compliance requirements. Jerzy Kelly DO 06/15/2024 8:19:28 AM This report has been signed electronically. Number of Addenda: 0 Note Initiated On: 06/11/2024 12:39 PM
== END 2024-06-11 20:33 | disposition home or self-care (01) | DRG 417 ==
LOC: ED 14:00 → MS3 14:33
PROVIDERS: Internal Medicine Gastroenterology; Surgery; Admitting Provider Hospitalist; Emergency Provider Emergency Medicine; PCP Family Medicine; Visit Provider Internal Medicine
PROC: 0FT44ZZ Resection of Gallbladder, Percutaneous Endoscopic Approach (ICD-10-PCS; CPT 47610; principal; 2024-06-10 12:40)
PROC: 0FPB8DZ Removal of Intraluminal Device from Hepatobiliary Duct, Via Natural or Artificial Opening Endoscopic (ICD-10-PCS; CPT 43260; principal; 2024-06-11 11:40)
DX: K80.45 Calculus of bile duct with chronic cholecystitis with obstruction (principal); K85.10 Biliary acute pancreatitis without necrosis or infection; K76.89 Other specified diseases of liver; I10 Essential (primary) hypertension; E78.5 Hyperlipidemia, unspecified; H40.9 Unspecified glaucoma; R39.89 Other symptoms and signs involving the genitourinary system; Z66 Do not resuscitate; Z79.899 Other long term (current) drug therapy; Z90.710 Acquired absence of both cervix and uterus; Z86.73 Personal history of transient ischemic attack (TIA), and cerebral infarction without residual deficits
CPT/HCPCS: 74177; 74300; 74330; 76000; 76705; 80048; 80053; 80076; 82248; 82378; 83690; 85025; 85027; 85610; 86301; 88108; 88304; 88305; 88313; 93005; 94668; 97802; 99284; J7030; J7120; Q9967; J2405

== ENCOUNTER → 2024-12-13 | Outpatient (CLI) | payer MEDICARE, SELFPAY ==
[2024-12-13 18:15] LABS: Absolute Lymphocyte Count 1.48 X10^3/uL (0.83-4.51); Absolute Neutrophil Count 5.7 X10^3/uL (2.0-7.7); Basophil# 0.02 X10^3/uL; Basophil% 0.3 % (0-1); Eosinophil# 0.07 X10^3/uL; Eosinophils% 0.9 % (0-5); Hematocrit 43.4 % (37-47); Hemoglobin 14.2 g/dL (12.0-15.0); Lymphocyte # 1.48 X10^3/ul (0.83-4.51); Lymphocyte % 18.8 % (19-41); Mean Corp Hgb Conc 32.7 g/dL (32-36); Mean Corpuscular Hgb 30.1 pg (27.0-32.0); Mean Corpuscular Volume 91.9 fL (81-99); Mean Platelet Vol. 10.8 fl (6.2-12.0); Monocyte# 0.62 X10^3/uL; Monocyte% 7.9 % (0-10); NRBC Flagged by Analyzer 0 % (0-5); Neutrophil # 5.66 X10^3/uL (2.7-7.7); Neutrophil % 71.8 % (47-70); Platelet Count 258 K/mm3 (150-450); RBC Distribution Width CV 13.7 % (11.6-14.6); RBC Distribution Width SD 46.6 fl (35.1-43.9); Red Blood Count 4.72 M/mm3 (4.2-5.4); White Blood Count 7.9 K/mm3 (4.4-11.0)
[2024-12-13 19:41] LABS: ALB/GLOB Ratio 1.7 RATIO (0.9-2.4); AST(SGOT) 21 U/L (<=31); Alanine Aminotransfer ALT/SGPT 22 U/L (<=34); Albumin, Serum 4.6 g/dL (3.4-4.8); Alkaline Phosphatase 70 U/L (35-104); Anion Gap 12 (5-15); BUN 14 mg/dL (4-19); BUN/Creat Ratio 13.8 RATIO (10-20); Calcium,Total 10.1 mg/dL (7.6-11.0); Carbon Dioxide 23.8 mmol/L (21.0-32.0); Chloride 104 mmol/L (98-108); Creatinine, Serum 0.98 mg/dL (0.70-1.20); EST Glomerular Filtration Rate 57 (>60); Globulin 2.6 g/dL (2.2-4.2); Glucose 140 mg/dL (70-99); Potassium 4.3 mmol/L (3.3-5.1); Protein, Total 7.2 g/dL (5.9-8.4); Sodium Level 140 mmol/L (133-145); Total Bilirubin 0.79 mg/dL (0.00-1.30)
== END | disposition home or self-care (01) ==
PROVIDERS: PCP Family Medicine; Referring Provider Family Medicine; Visit Provider Family Medicine
DX: I10 Essential (primary) hypertension (principal); R19.7 Diarrhea, unspecified
CPT/HCPCS: 36415; 80053; 84443; 85025

== ENCOUNTER → 2024-12-15 | Outpatient (CLI) | payer MEDICARE, SELFPAY | END | disposition home or self-care (01) | LOC: LABSPEC 09:08 | PROVIDERS: PCP Family Medicine; Visit Provider Family Medicine | DX: R19.7 Diarrhea, unspecified (principal) | CPT/HCPCS: 87177; 87209; 87493; 87506 ==